=== PATIENT | male | born 1950 | race Caucasian/White ===

== ENCOUNTER 2016-08-07 07:50 | Emergency (ER) | payer MEDICARE, OTHER ==
[~2016-08-07] VITALS: Ht 157.5 cm; Wt 55.0 kg
[~2016-08-07 07:50] MED LIST: ALBU0.08 NEB; AMLO5TAB2 PO; ASPI1TAB69 PO; CALC500T35 PO; DEXA4TAB PO; GABA600T PO; HYDR8TAB PO; METH10TA PO; OMEP20TA PO; POTA1TAB4 PO; ROBA750T PO; SENN1TAB PO; SPIRCAP INH; SYMB160A INH; ZOME4INJ IV; [UNRECOGNIZED DRUG - REMARK] PO; revlimid PO
[2016-08-07 07:52] VITALS: BP 166/73; PULSE 79; RESP 20; TEMP 98.2; O2SAT 97
--- NOTE | 2016-08-07 08:04 | PD ---
HPI Chief Complaint: Back/ Neck Pain or Injury Time Seen by Provider: 07:54 Travel History International Travel<30 days: No Contact w/Intl Traveler<30days: No Traveled to known affect area: No History of Present Illness HPI This is a 66-year-old male who has a history of multiple myeloma who presents to the emergency department with pain in his neck, constant, worse with moving his neck, improved with rest, sharp, starting in his shoulder blades and shooting upward towards the right side. He denies any numbness or weakness. He thinks he may have injured his neck when he was sneezing very forcefully earlier in the week. He says his neck pain is been going on for 2 days and has been progressing. He does have multiple bony lesions related to his multiple myeloma. PFSH Past Medical History Hx Anticoagulant Therapy: Yes (81 MG ASA) Anemia: Yes Arthritis: Yes Asthma: Yes Anxiety: Yes Cancer: Yes (multiple myeloma) Cardiovascular Problems: Yes (HTN) High Cholesterol: Yes (BORDERLINE) Chemotherapy: Yes (ORAL CHEMO) Chest Pain: Yes COPD: Yes Cerebrovascular Accident: No Diabetes: No Diminished Hearing: No Endocrine: No GERD: Yes Genitourinary: No Herniated Disk: Yes ("COLLAPSED" DISCS) Hypertension: Yes Immune Disorder: No Implanted Vascular Access Dvce: Yes Musculoskeletal: Yes (KYPHOPLASTY: SPINE DUE TO COLLAPSED DISCS AND FRACTURES) Neurologic: No Reproductive: No Respiratory: Yes (COPD) Immunizations Current: Yes Pneumonia: Yes Radiation Therapy: Yes Shingles: Yes ?: Not Past Surgical History Body Medical Devices: RIGHT SUBCLAVIAN INFUSAPORT: JUNE 2014 Other Surgery: Yes (infusaport r chest) Family History Family Hypercholesterolemia: Yes (SISTER, BROTHER, MOTHER) Social History Alcohol Use: No Tobacco Use: No (QUIT 2003: October smoked cigs 3 ppd) Substance Use: No Allergies-Medications (Allergen,Severity, Reaction): Coded Allergies: Azithromycin (Verified Allergy, Severe, Rash, 08/07/16) Phenergan (Verified Allergy, Severe, ANXIETY, 08/07/16) Augmentin (Verified Adverse Reaction, Severe, ABD PAIN, 08/07/16) IS CURRENTLY TAKING Doxycycline (Verified Adverse Reaction, Mild, ABDOMINAL PAIN, 08/07/16) Levaquin (Verified Adverse Reaction, Mild, BODY ACHES, 08/07/16) patient denies allergy to this medicine and has taken it as recently as April 2015 without adverse reaction Reported Meds & Prescriptions Reported Meds & Active Scripts Active Reported Adderall (Amphetamine-Dextroamphetamine) 5 Mg Tab 4 Mg PO DAILY Avoid late evening doses. Space doses at least 4 to 6 hours if more than once/day dosing. Zofran (Ondansetron HCl) 4 Mg Tab 4 Mg PO Q6HR PRN K-Tab (Potassium Chloride) 20 Meq Tab 20 Meq PO DAILY Zometa Inj (Zoledronic Acid) 4 Mg/100 Ml Inj 4 Mg IV MONTHLY Albuterol Neb (Albuterol Sulfate) 2.5 Mg/3 Ml Neb 2.5 Mg NEB QID NEB Symbicort Inh (Budesonide/Formoterol Fumarate) 160-4.5 Mcg/Act Aero 2 Puff INH Q12HR Calcium (Oyster Shell) 500 Mg Tab 1,000 Mg PO DAILY Aspirin 81 Mg Tabdr 81 Mg PO DAILY Robaxin (Methocarbamol) 750 Mg Tab 750 Mg PO TID [ureña signature] 10 Mg PO DAILY Amlodipine (Amlodipine Besylate) 5 Mg Tab 5 Mg PO DAILY Methadone (Methadone HCl) 10 Mg Tab 10 Mg PO TID Gabapentin 600 Mg Tab 600 Mg PO TID Hydromorphone (Hydromorphone HCl) 8 Mg Tab 8 Mg PO Q6H PRN Dexamethasone 4 Mg Tab 20 Mg PO EVERY MON Omeprazole 20 Mg Tab 20 Mg PO BID Spiriva Handihaler (Tiotropium Inh) 18 Mcg Cap 18 Mcg INH DAILY 1 capsule = 18 mcg Senna Plus 8.6-50 mg (Sennosides-Docusate Sodium) 1 Tab Tab 1 Tab PO BID [revlimid] 25 Mg PO DAILY Review of Systems Except as stated in HPI: all other systems reviewed are Neg Physical Exam Narrative GENERAL:Well appearing, no acute distress SKIN: Warm and dry. HEAD: Atraumatic. Normocephalic. EYES: Pupils equal and round. No injection or drainage. ENT: Moist mucous membranes NECK: Trachea midline. No cervical spine tenderness. Cervical collar in place. CARDIOVASCULAR: Regular rate and rhythm. No murmur appreciated. RESPIRATORY: Clear to auscultation. Breath sounds equal bilaterally. GASTROINTESTINAL: Abdomen soft, non-tender, nondistended. MUSCULOSKELETAL: No obvious deformities. NEUROLOGICAL: Awake and alert. No obvious cranial nerve deficits. Moving all extremities. PSYCHIATRIC: Appropriate mood and affect; insight and judgment normal. Data Data Last Documented VS Vital Signs Date Time Temp Pulse Resp B/P Pulse Ox O2 Delivery O2 Flow Rate FiO2 08/07/16 07:52 98.2 79 20 166/73 97 Orders Hydromorphone Pf Inj (Dilaudid Pf Inj) (08/07/16 08:15) Ct Cerv Spine W/O Contrast (08/07/16 ) MDM Medical Decision Making Medical Screen Exam Complete: Yes Emergency Medical Condition: Yes Interpretation(s) CT cervical spine: No acute fracture Differential Diagnosis Cervical spine fracture, cervical sprain, herniated disc Narrative Course This is a 66-year-old male who has a history of multiple myeloma who presents to the emergency department having pain in his neck that followed an episode of violent sneezing. He was concerned that he may have a fracture. CT of the cervical spine was obtained which was reassuring. He was given a dose of IM analgesia. Patient will be discharged home. Diagnosis Primary Impression: Cervical sprain Qualified Code: S13.9XXA - Cervical sprain, initial encounter Patient Instructions: General Instructions Additional Instructions: If you develop headache, difficulty walking, difficulty talking, weakness, numbness, lightheadedness or severe pain return to the emergency department. If you are not improved in 2 days follow up with your primary care physician without fail. Med/Other Pt SpecificInfo: No Change to Meds Disposition: 01 DISCHARGE HOME Condition: Stable (ERASED) Nilsa Andrew MD Aug 07, 2016 08:04
[2016-08-07] MEDS ORDERED: AMPH1TAB29 PO (08:10)
[2016-08-07] MEDS ORDERED: ZOFR4TAB PO (08:10)
[2016-08-07] MEDS ORDERED: HYDROmorphone HCL PF 2 MG/ML VIAL IM ONE (08:15)
--- NOTE | 2016-08-07 08:46 | RADRPT ---
EXAM DATE/TIME: 08/07/2016 08:17 [facility] COMPARISON: CT CERVICAL SPINE W/O CONTRAST, July 27, 2016, 12:46. INDICATIONS : Neck pain from sneezing two days ago. History of multiple myeloma. RADIATION DOSE: 19.71 CTDIvol (mGy) MEDICAL HISTORY : Hypertension. Chronic obstructive pulmonary disease. Multiple myeloma SURGICAL HISTORY : Kyphoplasty. ENCOUNTER: Initial ACUITY: 1 day PAIN SCALE: 8/10 LOCATION: neck TECHNIQUE: Volumetric scanning of the cervical spine was performed. Multiplanar reconstructions in the sagittal, coronal and oblique axial planes were performed. Using automated exposure control and adjustment o f the mA and/or kV according to patient size, radiation dose was kept as low as reasonably achievable to obtain optimal diagnostic quality images. FINDINGS: There is normal alignment. No prevertebral soft tissue swelling. There is multilevel facet hypertroph y and osteophytosis. Moderate disc space narrowing at C5-6 and C6-7. There are no compression deformi ties. Carotid artery calcifications are noted bilaterally. Uncovertebral hypertrophy is seen C5-6 and C6-7. Severe emphysematous changes are visualized on lung windows. Coronal images best demonstrate s cattered tiny lucent lesions within the C3, C5 and C6 vertebral bodies. CONCLUSION: 1. Degenerative changes with no fracture or listhesis. 2. Stable exam. Marvin Lezama MD on August 07, 2016 at 8:41 Board Certified Radiologist. This report was verified electronically.
[2016-08-07 09:25] VITALS: BP 159/70; PULSE 80; RESP 20; O2SAT 96
== END 2016-08-07 09:35 | disposition home or self-care (01) ==
LOC: NEPC 07:50
DX: S13.4XXA Sprain of ligaments of cervical spine, initial encounter (principal); Y93.9 Activity, unspecified; I10 Essential (primary) hypertension; C90.00 Multiple myeloma not having achieved remission; E78.00 Pure hypercholesterolemia, unspecified; J44.9 Chronic obstructive pulmonary disease, unspecified; X50.9XXA Other and unspecified overexertion or strenuous movements or postures, initial encounter
CPT/HCPCS: 72125; 96372; 99284; J1170; L0150

== ENCOUNTER 2016-09-10 14:25 | Emergency (ER) | payer MEDICARE, OTHER ==
[~2016-09-10] VITALS: Ht 157.5 cm; Wt 55.0 kg
[~2016-09-10 14:25] MED LIST changes: +AMPH1TAB29 PO; +ZOFR4TAB PO
[2016-09-10 14:31] VITALS: BP 139/82; PULSE 114; RESP 18; TEMP 98.8; O2SAT 99
[2016-09-10] MEDS ORDERED: IPRA0.06 EACH NARE (15:15)
[2016-09-10] MEDS ORDERED: BENZ100 PO (15:15)
--- NOTE | 2016-09-10 15:17 | PD ---
HPI Chief Complaint: Cold / Flu Symptoms Time Seen by Provider: 15:09 Travel History International Travel<30 days: No Contact w/Intl Traveler<30days: No Traveled to known affect area: No History of Present Illness HPI Patient is a 66-year-old male who presents for evaluation of a cough that started at approximately 1 AM this morning. He also states his nose has been runny. He denies any fevers, chills, nausea, vomiting, chest pain, shortness of breath. Patient reports a history of COPD and has not been using his inhalers, stating that he forgot. He denies any other complaints at this time. PFSH Past Medical History Hx Anticoagulant Therapy: No Anemia: Yes Arthritis: Yes Asthma: Yes Anxiety: Yes Cancer: Yes (multiple myeloma) Cardiovascular Problems: Yes (HTN) High Cholesterol: Yes (BORDERLINE) Chemotherapy: Yes (ORAL CHEMO) Chest Pain: Yes COPD: Yes Cerebrovascular Accident: No Diabetes: No Diminished Hearing: No Endocrine: No GERD: Yes Genitourinary: No Herniated Disk: Yes ("COLLAPSED" DISCS) Hypertension: Yes Immune Disorder: No Implanted Vascular Access Dvce: Yes Musculoskeletal: Yes (KYPHOPLASTY: SPINE DUE TO COLLAPSED DISCS AND FRACTURES) Neurologic: No Reproductive: No Respiratory: Yes (COPD, EMPHYSEMA) Immunizations Current: Yes Pneumonia: Yes Radiation Therapy: Yes Shingles: Yes Tetanus Vaccination: < 5 Years Influenza Vaccination: Yes Past Surgical History Body Medical Devices: RIGHT SUBCLAVIAN INFUSAPORT: JUNE 2014 Other Surgery: Yes (infusaport r chest) Family History Family Hypercholesterolemia: Yes (SISTER, BROTHER, MOTHER) Social History Alcohol Use: No Tobacco Use: No (QUIT 2003: October smoked cigs 3 ppd) Substance Use: No Allergies-Medications (Allergen,Severity, Reaction): Coded Allergies: Azithromycin (Verified Allergy, Severe, Rash, 09/10/16) Phenergan (Verified Allergy, Severe, ANXIETY, 09/10/16) Augmentin (Verified Adverse Reaction, Severe, ABD PAIN, 09/10/16) IS CURRENTLY TAKING Doxycycline (Verified Adverse Reaction, Mild, ABDOMINAL PAIN, 09/10/16) Levaquin (Verified Adverse Reaction, Mild, BODY ACHES, 09/10/16) patient denies allergy to this medicine and has taken it as recently as April 2015 without adverse reaction Reported Meds & Prescriptions Reported Meds & Active Scripts Active Tessalon Perles (Benzonatate) 100 Mg Cap 200 Mg PO TID PRN Ipratropium Nasal 0.06% [place] 1 [place] EACH NARE QID Reported Adderall (Amphetamine-Dextroamphetamine) 5 Mg Tab 4 Mg PO DAILY Avoid late evening doses. Space doses at least 4 to 6 hours if more than once/day dosing. Zofran (Ondansetron HCl) 4 Mg Tab 4 Mg PO Q6HR PRN K-Tab (Potassium Chloride) 20 Meq Tab 20 Meq PO DAILY Zometa Inj (Zoledronic Acid) 4 Mg/100 Ml Inj 4 Mg IV MONTHLY Albuterol Neb (Albuterol Sulfate) 2.5 Mg/3 Ml Neb 2.5 Mg NEB QID NEB Symbicort Inh (Budesonide/Formoterol Fumarate) 160-4.5 Mcg/Act Aero 2 Puff INH Q12HR Calcium (Oyster Shell) 500 Mg Tab 1,000 Mg PO DAILY Aspirin 81 Mg Tabdr 81 Mg PO DAILY Robaxin (Methocarbamol) 750 Mg Tab 750 Mg PO TID [ureña signature] 10 Mg PO DAILY Amlodipine (Amlodipine Besylate) 5 Mg Tab 5 Mg PO DAILY Methadone (Methadone HCl) 10 Mg Tab 10 Mg PO TID Gabapentin 600 Mg Tab 600 Mg PO TID Hydromorphone (Hydromorphone HCl) 8 Mg Tab 8 Mg PO Q6H PRN Dexamethasone 4 Mg Tab 20 Mg PO EVERY MON Omeprazole 20 Mg Tab 20 Mg PO BID Spiriva Handihaler (Tiotropium Inh) 18 Mcg Cap 18 Mcg INH DAILY 1 capsule = 18 mcg Senna Plus 8.6-50 mg (Sennosides-Docusate Sodium) 1 Tab Tab 1 Tab PO BID [revlimid] 25 Mg PO DAILY Review of Systems Except as stated in HPI: all other systems reviewed are Neg General / Constitutional: No: Fever, Chills HENT: Positive: Rhinitis, Congestion, No: Headaches, Neck Pain Cardiovascular: No: Chest Pain or Discomfort Respiratory: Positive: Cough, No: Shortness of Breath, Wheezing Gastrointestinal: No: Nausea, Abdominal Pain Musculoskeletal: No: Myalgias Physical Exam Narrative GENERAL: Thin, well-developed, alert elderly male. Resting comfortably in no acute distress. SKIN: Warm and dry. HEAD: Atraumatic. Normocephalic. EYES: Pupils equal and round. No scleral icterus. No injection or drainage. ENT: No nasal bleeding or discharge. Mucous membranes pink and moist. Cobblestone appearance to posterior pharynx. NECK: Trachea midline. No JVD. CARDIOVASCULAR: Regular rate and rhythm. No murmur appreciated. RESPIRATORY: No accessory muscle use. Clear to auscultation. Breath sounds equal bilaterally. GASTROINTESTINAL: Abdomen soft, non-tender, nondistended. Hepatic and splenic margins not palpable. MUSCULOSKELETAL: No obvious deformities. No clubbing. No cyanosis. No edema. NEUROLOGICAL: Awake and alert. No obvious cranial nerve deficits. Motor grossly within normal limits. Normal speech. PSYCHIATRIC: Appropriate mood and affect; insight and judgment normal. Data Data Last Documented VS Vital Signs Date Time Temp Pulse Resp B/P Pulse Ox O2 Delivery O2 Flow Rate FiO2 09/10/16 14:43 18 99 Room Air 09/10/16 14:31 98.8 114 139/82 MDM Medical Decision Making Medical Screen Exam Complete: Yes Emergency Medical Condition: Yes Interpretation(s) Vital Signs Date Time Temp Pulse Resp B/P Pulse Ox O2 Delivery O2 Flow Rate FiO2 09/10/16 14:43 18 99 Room Air 09/10/16 14:31 98.8 114 18 139/82 99 Differential Diagnosis Viral URI versus bronchitis versus pneumonia versus COPD exacerbation versus other Narrative Course Patient is a 66-year-old male who presented to emergency department for evaluation of a cough that started approximately 1 AM this morning. Physical examination is unremarkable other than Appears to Posterior Pharynx. Patient Was Advised That Cough Is Likely Secondary to Postnasal Drip. He Was Encouraged to Trial Symptom Management. His primary care provider is Dr. Griffiths. Patient was encouraged to follow-up with his primary doctor or return to emergency department for any new or worsening symptoms. Patient was advised that his symptoms will likely go on for 5-7 days. He verbalized understanding of these instructions. Again he was advised to come back to emergency department if his symptoms change or worsen. Heart rate was initially charted at 115, was reassessed at 80 was unhappy that he did not receive a prescription for antibiotic initially taking that he has multiple myeloma and is on chemotherapy and states that he is always given an antibiotic. Patient's labs were reviewed from August as well as medical records from the last ER visit for upper respiratory infection. During that time patient had been sick for several days. Patient was given a prescription for Augmentin, was strongly encouraged to follow- up with oncologist and primary doctor. Patient was encouraged to be compliant with COPD medications. Diagnosis Primary Impression: Viral URI with cough Referrals: Eusebio Griffiths DO 3 days Patient Instructions: General Instructions, Upper Respiratory Infection (ED) Additional Instructions: Follow-up with her primary doctor Continue symptom management Return to emergency department for any new or worsening symptoms Trial [id number] Coricidin HBP for nasal congestion, use as directed Med/Other Pt SpecificInfo: Prescription(s) given Scripts Amoxicillin-Clavulanate (Augmentin)875-125 mg [id number] Mg PO BID 10 Days Ref 0 not for use in CrCl <30 ml/min. Prov:Shanell Duke 09/10/16 Benzonatate (Tessalon Perles)100 Mg [id number] Mg PO TID PRN (COUGH) #15 CAP Ref 0 Prov:Shanell Duke 09/10/16 Ipratropium Nasal 0.06% Spray1 [place] EACH NARE QID #1 BOTTLE Ref 0 Prov:Shanell Duke 09/10/16 Disposition: 01 DISCHARGE HOME Condition: Stable Shanell Duke Sep 10, 2016 15:16
[2016-09-10] MEDS ORDERED: AUGM875T PO (15:30)
== END 2016-09-10 15:34 | disposition home or self-care (01) ==
LOC: PHEFT 14:25
DX: J06.9 Acute upper respiratory infection, unspecified (principal); D64.9 Anemia, unspecified; J45.909 Unspecified asthma, uncomplicated; I10 Essential (primary) hypertension; J44.9 Chronic obstructive pulmonary disease, unspecified; Z87.891 Personal history of nicotine dependence
CPT/HCPCS: 99283

== ENCOUNTER 2016-09-17 10:16 | Emergency (ER) | payer MEDICARE, OTHER ==
[~2016-09-17] VITALS: Ht 157.5 cm; Wt 52.0 kg
[~2016-09-17 10:16] MED LIST changes: +AUGM875T PO; +BENZ100 PO; +IPRA0.06 EACH NARE
[2016-09-17 10:20] VITALS: BP 173/93; PULSE 106; RESP 24; TEMP 98.1; O2SAT 92
[2016-09-17 10:30] VITALS: PULSE 103; RESP 20; TEMP 98.6; O2SAT 90
[2016-09-17 10:41] VITALS: O2SAT 98
--- NOTE | 2016-09-17 10:41 | PD ---
HPI Chief Complaint: Respiratory Distress Time Seen by Provider: 10:35 Travel History International Travel<30 days: No Contact w/Intl Traveler<30days: No Traveled to known affect area: No History of Present Illness HPI The patient is a 66-year-old male who presents emergency department for shortness of breath and chest congestion. The patient has a history of multiple myeloma and COPD, is followed by his medical sales associate, Dr. Crow, his oncologist, Dr. Hernandez, and his primary physician Dr. Griffiths. The patient states her last several weeks he has had viral symptoms with nasal congestion and a dry nonproductive cough. However, over the last several days his symptoms have progressed, now notes a productive cough producing a thick yellow sputum, mild shortness of breath, and wheezing. The patient has been using his breathing inhaler, Symbicort, and albuterol nebulizers at home with minimal alleviation of his symptoms. The patient is currently being treated for multiple myeloma, gets chemotherapy and Decadron 20 mg every Sunday. The patient denies any recent history of bronchitis or pneumonia. The patient denies any history of CAD, CHF, or previous pulmonary embolism/DVT. Patient's symptoms are moderate, possibly exacerbated by recent upper respiratory infection, and minimally alleviated with nebulizers and inhalers at home. PFSH Past Medical History Hx Anticoagulant Therapy: No Anemia: Yes Arthritis: Yes Asthma: Yes Anxiety: Yes Cancer: Yes (multiple myeloma) Cardiovascular Problems: Yes (HTN) High Cholesterol: Yes (BORDERLINE) Chemotherapy: Yes (ORAL CHEMO) Chest Pain: Yes COPD: Yes Cerebrovascular Accident: No Diabetes: No Diminished Hearing: No Endocrine: No GERD: Yes Genitourinary: No Herniated Disk: Yes ("COLLAPSED" DISCS) Hypertension: Yes Immune Disorder: No Implanted Vascular Access Dvce: Yes Musculoskeletal: Yes (KYPHOPLASTY: SPINE DUE TO COLLAPSED DISCS AND FRACTURES) Neurologic: No Reproductive: No Respiratory: Yes (COPD, EMPHYSEMA) Immunizations Current: Yes Pneumonia: Yes Radiation Therapy: Yes Shingles: Yes Past Surgical History Body Medical Devices: RIGHT SUBCLAVIAN INFUSAPORT: JUNE 2014 Other Surgery: Yes (infusaport r chest) Family History Family Hypercholesterolemia: Yes (SISTER, BROTHER, MOTHER) Social History Alcohol Use: No Tobacco Use: No (QUIT 2003: October smoked cigs 3 ppd) Substance Use: No Allergies-Medications (Allergen,Severity, Reaction): Coded Allergies: Azithromycin (Verified Allergy, Severe, Rash, 09/17/16) Phenergan (Verified Allergy, Severe, ANXIETY, 09/17/16) Augmentin (Verified Adverse Reaction, Severe, ABD PAIN, 09/17/16) IS CURRENTLY TAKING Doxycycline (Verified Adverse Reaction, Mild, ABDOMINAL PAIN, 09/17/16) Levaquin (Verified Adverse Reaction, Mild, BODY ACHES, 09/17/16) patient denies allergy to this medicine and has taken it as recently as April 2015 without adverse reaction. STASTES HE CAN TAKE IT Reported Meds & Prescriptions Reported Meds & Active Scripts Active Reported Zofran (Ondansetron HCl) 4 Mg Tab 4 Mg PO Q6HR PRN K-Tab (Potassium Chloride) 20 Meq Tab 20 Meq PO DAILY Zometa Inj (Zoledronic Acid) 4 Mg/100 Ml Inj 4 Mg IV MONTHLY Albuterol Neb (Albuterol Sulfate) 2.5 Mg/3 Ml Neb 2.5 Mg NEB QID NEB Symbicort Inh (Budesonide/Formoterol Fumarate) 160-4.5 Mcg/Act Aero 2 Puff INH Q12HR Calcium (Oyster Shell) 500 Mg Tab 1,000 Mg PO DAILY Robaxin (Methocarbamol) 750 Mg Tab 750 Mg PO TID [ureña signature] 10 Mg PO DAILY Amlodipine (Amlodipine Besylate) 5 Mg Tab 5 Mg PO DAILY Methadone (Methadone HCl) 10 Mg Tab 10 Mg PO TID Gabapentin 600 Mg Tab 600 Mg PO TID Hydromorphone (Hydromorphone HCl) 8 Mg Tab 8 Mg PO Q6H PRN Dexamethasone 4 Mg Tab 20 Mg PO EVERY MON Omeprazole 20 Mg Tab 20 Mg PO BID Spiriva Handihaler (Tiotropium Inh) 18 Mcg Cap 18 Mcg INH DAILY 1 capsule = 18 mcg Senna Plus 8.6-50 mg (Sennosides-Docusate Sodium) 1 Tab Tab 1 Tab PO BID [revlimid] 25 Mg PO DAILY Review of Systems Except as stated in HPI: all other systems reviewed are Neg General / Constitutional: No: Fever HENT: Positive: Congestion, No: Lightheadedness Cardiovascular: No: Chest Pain or Discomfort Respiratory: Positive: Cough, Shortness of Breath, Wheezing Musculoskeletal: No: Weakness, Edema Neurologic: No: Dizziness Physical Exam Narrative GENERAL: Awake, alert, pleasant 66-year-old male who appears his stated age and is in mild acute respiratory distress. SKIN: Warm and dry. HEAD: Atraumatic. Normocephalic. EYES: Pupils equal and round. No scleral icterus. No injection or drainage. ENT: No nasal bleeding or discharge. Mucous membranes pink and moist. NECK: Trachea midline. No JVD. CARDIOVASCULAR: Regular, tachycardic with a heart rate of 110. Port in place right chest wall. RESPIRATORY: Mild tachypnea with a respiratory rate of 22. Mild supraclavicular retractions. Diminished breath sounds throughout with late expiratory wheeze and occasional rhonchi. GASTROINTESTINAL: Abdomen soft, non-tender, nondistended. MUSCULOSKELETAL: No obvious deformities. No clubbing. No cyanosis. No edema. Calves are soft bilaterally. NEUROLOGICAL: Awake and alert. No obvious cranial nerve deficits. Motor grossly within normal limits. Normal speech. PSYCHIATRIC: Appropriate mood and affect; insight and judgment normal. Data Data Last Documented VS Vital Signs Date Time Temp Pulse Resp B/P Pulse Ox O2 Delivery O2 Flow Rate FiO2 09/17/16 12:05 116 22 129/72 94 Nasal Cannula 2 09/17/16 10:30 98.6 Orders Complete Blood Count With Diff (09/17/16 10:35) Comprehensive Metabolic Panel (09/17/16 10:35) B-Type Natriuretic Peptide (09/17/16 10:35) Magnesium (Mg) (09/17/16 10:35) Ckmb (Isoenzyme) Profile (09/17/16 10:35) Troponin I (09/17/16 10:35) Iv Access Insert/Monitor (09/17/16 10:35) Electrocardiogram (09/17/16 10:35) Ecg Monitoring (09/17/16 10:35) Oximetry (09/17/16 10:35) Oxygen Administration (09/17/16 10:35) Chest, Single Ap (09/17/16 10:35) Sodium Chloride 0.9% Flush (Ns Flush) (09/17/16 10:45) Methylprednisolone So Succ Inj (Solumedr (09/17/16 10:45) Albuterol-Ipratropium Neb (Duoneb Neb) (09/17/16 10:45) Lidocaine Pf 4% Neb (Lidocaine Pf 4% Neb (09/17/16 10:45) Potassium Chloride Eff (K-Lyte Cl Eff) (09/17/16 11:30) Labs Laboratory Tests Test 09/17/16 10:43 White Blood Count 5.4 TH/MM3 Red Blood Count 4.74 MIL/MM3 Hemoglobin 12.8 GM/DL Hematocrit 38.0 % Mean Corpuscular Volume 80.2 FL Mean Corpuscular Hemoglobin 27.0 PG Mean Corpuscular Hemoglobin 33.7 % Concent Red Cell Distribution Width 17.4 % Platelet Count 222 TH/MM3 Mean Platelet Volume 7.7 FL Neutrophils (%) (Auto) 74.8 % Lymphocytes (%) (Auto) 5.0 % Monocytes (%) (Auto) 19.4 % Eosinophils (%) (Auto) 0.0 % Basophils (%) (Auto) 0.8 % Neutrophils # (Auto) 4.1 TH/MM3 Lymphocytes # (Auto) 0.3 TH/MM3 Monocytes # (Auto) 1.1 TH/MM3 Eosinophils # (Auto) 0.0 TH/MM3 Basophils # (Auto) 0.0 TH/MM3 CBC Comment DIFF FINAL Differential Comment Sodium Level 137 MEQ/L Potassium Level 2.8 MEQ/L Chloride Level 99 MEQ/L Carbon Dioxide Level 29.0 MEQ/L Anion Gap 9 MEQ/L Blood Urea Nitrogen 8 MG/DL Creatinine 0.61 MG/DL Estimat Glomerular Filtration 132 ML/MIN Rate Random Glucose 125 MG/DL Calcium Level 8.4 MG/DL Magnesium Level 1.8 MG/DL Total Bilirubin 0.5 MG/DL Aspartate Amino Transf 10 U/L (AST/SGOT) Alanine Aminotransferase 14 U/L (ALT/SGPT) Alkaline Phosphatase 89 U/L Total Creatine Kinase 27 U/L Troponin I LESS THAN 0.02 NG/ML B-Type Natriuretic Peptide 22 PG/ML Total Protein 7.0 GM/DL Albumin 2.9 GM/DL [facility] Medical Decision Making Medical Screen Exam Complete: Yes Emergency Medical Condition: Yes Medical Record Reviewed: Yes Interpretation(s) EKG reveals normal sinus rhythm with a rate in 98. Short VT interval of 104 ms. Occasional premature supraventricular complex. No ST elevations or depressions noted. Laboratory Tests Test 09/17/16 10:43 White Blood Count 5.4 TH/MM3 Red Blood Count 4.74 MIL/MM3 Hemoglobin 12.8 GM/DL Hematocrit 38.0 % Mean Corpuscular Volume 80.2 FL Mean Corpuscular Hemoglobin 27.0 PG Mean Corpuscular Hemoglobin 33.7 % Concent Red Cell Distribution Width 17.4 % Platelet Count 222 TH/MM3 Mean Platelet Volume 7.7 FL Neutrophils (%) (Auto) 74.8 % Lymphocytes (%) (Auto) 5.0 % Monocytes (%) (Auto) 19.4 % Eosinophils (%) (Auto) 0.0 % Basophils (%) (Auto) 0.8 % Neutrophils # (Auto) 4.1 TH/MM3 Lymphocytes # (Auto) 0.3 TH/MM3 Monocytes # (Auto) 1.1 TH/MM3 Eosinophils # (Auto) 0.0 TH/MM3 Basophils # (Auto) 0.0 TH/MM3 CBC Comment DIFF FINAL Differential Comment Sodium Level 137 MEQ/L Potassium Level 2.8 MEQ/L Chloride Level 99 MEQ/L Carbon Dioxide Level 29.0 MEQ/L Anion Gap 9 MEQ/L Blood Urea Nitrogen 8 MG/DL Creatinine 0.61 MG/DL Estimat Glomerular Filtration 132 ML/MIN Rate Random Glucose 125 MG/DL Calcium Level 8.4 MG/DL Magnesium Level 1.8 MG/DL Total Bilirubin 0.5 MG/DL Aspartate Amino Transf 10 U/L (AST/SGOT) Alanine Aminotransferase 14 U/L (ALT/SGPT) Alkaline Phosphatase 89 U/L Total Creatine Kinase 27 U/L Troponin I LESS THAN 0.02 NG/ML B-Type Natriuretic Peptide 22 PG/ML Total Protein 7.0 GM/DL Albumin 2.9 GM/DL Last Impressions Chest X-Ray 09/17/16 1035 Signed Impressions: Service Date/Time: Saturday, September 17, 2016 10:48 - CONCLUSION: 1. COPD with chronic interstitial changes in the lung bases. 2. No acute pulmonary infiltrates. Talon Stern MD Differential Diagnosis Differential diagnosis includes bronchitis, pneumonia, COPD exacerbation, pulmonary embolism, congestive heart failure, pericardial effusion, acute coronary syndrome. Narrative Course The patient's port was accessed, labs are drawn and sent, and the patient was placed on cardiac telemetry monitoring and continuous pulse oximetry monitoring. EKG was ordered and interpreted. Chest x-ray was obtained. The patient was administered Solu-Medrol 125 mg intravenously and duo nebs with respiratory lidocaine. The patient's troponin was unremarkable, BNP is negative , chest x-ray reveals chronic changes consistent with COPD, but no acute infiltrate. The patient's potassium is low at 2.8, therefore, was replaced orally. The patient was reevaluated several times, his symptoms had significantly improved, his heart rate came down into the 70s. I do discussion with the patient regarding 23 hour observation/admission versus outpatient follow-up. Patient states he feels well enough to go home, I advised them to follow-up with his medical sales associate, Dr. Crow, tomorrow. He is advised to return if symptoms worsen or progress. Diagnosis Primary Impression: Acute bronchitis Qualified Code: J20.9 - Acute bronchitis, unspecified organism Additional Impression: COPD exacerbation Patient Instructions: General Instructions Additional Instructions: Please provide the patient a copy of his labs and chest x-ray report at discharge. Nebulizers every 4 hours while awake. Start steroids in the morning. Bactrim twice a day as directed. Follow-up with your medical sales associate tomorrow. Return if symptoms worsen or progress. Med/Other Pt SpecificInfo: Prescription(s) given Scripts Ipratropium-Albuterol Neb (Duoneb)0.5-2.5 Mg/3 Ml Neb1 Nebule INH Q4HR NEB # 120 NEBULE Ref 0 Prov:Gerald Nino MD 09/17/16 Sulfamethoxazole-Trimethoprim (Bactrim DS)800-160 Mg Tab1 Tab PO BID #14 TAB Ref 0 Prov:Gerald Nino MD 09/17/16 Prednisone (Deltasone)20 Mg Tab40 Mg PO DAILY 4 Days Ref 0 Prov:Gerald Nino MD 09/17/16 Disposition: 01 DISCHARGE HOME Condition: Stable Gerald Nino MD Sep 17, 2016 10:41
[2016-09-17] MEDS ORDERED: methylPREDNISolone SOD SUCC 125 MG/2 ML VIAL IVP ONE (10:45)
[2016-09-17] MEDS ORDERED: SODIUM CHLORIDE 0.9% FLUSH 5 ML FLUSH IVF PRN (10:45)
[2016-09-17] MEDS ORDERED: RESP: LIDOCAINE HCL 4% PF 5 ML NEB NEB ONE (10:45)
[2016-09-17] MEDS: RESP: ALBUTEROL 2.5 MG/IPRATROPIUM 0.5 MG NEB (SCH) INH ×2 (10:59→11:00)
[2016-09-17 11:00] LABS: AUTOMATED NEUTROPHIL # 4.1 TH/MM3 (1.8-7.7); BASOPHIL % 0.8 % (0.0-2.0); HEMO FLAGS DIFF FINAL; LYMPHOCYTE # 0.3 TH/MM3 (1.0-4.8); MEAN CELL VOLUME 80.2 FL (80.0-100.0); MEAN CORPUSCULAR HGB CONC 33.7 % (32.0-36.0); MONO % 19.4 % (0.0-8.0); NEUT % 74.8 % (16.0-70.0); PLATELET COUNT 222 TH/MM3 (150-450); RED BLOOD COUNT 4.74 MIL/MM3 (4.50-5.90); RED CELL DISTRIBUTION WIDTH 17.4 % (11.6-17.2); WHITE BLOOD COUNT 5.4 TH/MM3 (4.0-11.0)
--- NOTE | 2016-09-17 11:00 | RADRPT ---
EXAM DATE/TIME: 09/17/2016 10:48 [facility] COMPARISON: CHEST SINGLE AP, August 04, 2015, 16:16. INDICATIONS : Short of Breath. MEDICAL HISTORY : Chronic obstructive pulmonary disease. Emphysema. Multiple Myeloma. SURGICAL HISTORY : Port Placement. ENCOUNTER: Initial ACUITY: 2 days PAIN SCORE: 0/10 LOCATION: Bilateral chest FINDINGS: A single view of the chest demonstrates hyperaeration bilaterally with some chronic interstitial garcia ges in both lung bases. No definite acute pulmonary infiltrates are seen. The heart size is within no rmal limits. There are no pleural effusions. There are degenerative changes of the bony structures. R ight-sided [id number] in place.. No significant changes. CONCLUSION: 1. COPD with chronic interstitial changes in the lung bases. 2. No acute pulmonary infiltrates. Talon Stern MD on September 17, 2016 at 10:58 Board Certified Radiologist. This report was verified electronically.
[2016-09-17 11:03] VITALS: O2SAT 95
[2016-09-17 11:19] LABS: ANION GAP 9 MEQ/L (5-15); AST (GOT) 10 U/L (15-37); BLOOD UREA NITROGEN 8 MG/DL (7-18); CHLORIDE 99 MEQ/L (98-107); GLOMERULAR FILTRATION RATE 132 ML/MIN (>89); MAGNESIUM 1.8 MG/DL (1.5-2.5); SODIUM (NA) 137 MEQ/L (136-145)
[2016-09-17 11:23] LABS: POTASSIUM 2.8 MEQ/L (3.5-5.1)
[2016-09-17] MEDS ORDERED: POTASSIUM CHLORIDE 25 MEQ EFFERVESCENT TAB PO ONE (11:30)
[2016-09-17 12:00] LABS: ALKALINE PHOSPHATASE 89 U/L (45-117); ALT (GPT) 14 U/L (12-78); CREATINE KINASE 27 U/L (39-308); TOTAL BILIRUBIN ADULT 0.5 MG/DL (0.2-1.0)
[2016-09-17 12:05] VITALS: BP 129/72; PULSE 116; RESP 22; O2SAT 94
[2016-09-17] MEDS ORDERED: BACT800T5 PO (12:25)
[2016-09-17] MEDS ORDERED: PRED-503 PO (12:25)
[2016-09-17] MEDS ORDERED: IPRASOL INH (12:25)
[2016-09-17] MEDS ORDERED: ONDANSETRON ODT 4 MG TAB PO ONE (13:15)
--- NOTE | 2016-09-17 14:43 | EKG ---
Date Performed: 09/17/2016 Time Performed: 10:40:26 PTAGE: 66 years EKG: Sinus rhythm WITH SHORT NJ INTERVAL WITH OCCASIONAL VENTRICULAR PREMATURE COMPLEXES WITH OCCASIONAL SUPRAVENTRICU LAR PREMATURE COMPLEXES BORDERLINE LEFT AXIS DEVIATION Compared to previous tracing, NJ interval is s lightly shorter. A PVC is now seen BORDERLINE ECG PREVIOUS TRACING : 05/29/2015 19.57 DOCTOR: Saulo Gautam Interpretating Date/Time 09/17/2016 14:41:49
== END 2016-09-17 13:44 | disposition home or self-care (01) ==
LOC: NEPE 10:16
DX: J20.9 Acute bronchitis, unspecified (principal); C90.00 Multiple myeloma not having achieved remission; J44.0 Chronic obstructive pulmonary disease with (acute) lower respiratory infection; Z92.21 Personal history of antineoplastic chemotherapy; D64.9 Anemia, unspecified; M19.90 Unspecified osteoarthritis, unspecified site; I10 Essential (primary) hypertension
CPT/HCPCS: 71010; 80053; 82550; 83735; 83880; 84484; 85025; 93005; 94640; 94664; 99284; J1642; J2930

== ENCOUNTER 2016-10-07 14:08 | Emergency (ER) | payer MEDICARE, OTHER ==
[~2016-10-07] VITALS: Ht 157.5 cm; Wt 52.5 kg
[~2016-10-07 14:08] MED LIST changes: -AMPH1TAB29 PO; -ASPI1TAB69 PO; -AUGM875T PO; +BACT800T5 PO; -BENZ100 PO; -IPRA0.06 EACH NARE; +IPRASOL INH; +PRED-503 PO
[2016-10-07 14:21] VITALS: BP 122/85; PULSE 92; RESP 16; TEMP 98.3; O2SAT 96
[2016-10-07] MEDS ORDERED: HYDROmorphone HCL PF 2 MG/ML VIAL IM ONE (14:30)
--- NOTE | 2016-10-07 14:33 | PD ---
HPI Chief Complaint: Musculoskeletal Complaint Time Seen by Provider: 14:20 Travel History International Travel<30 days: No Contact w/Intl Traveler<30days: No Traveled to known affect area: No History of Present Illness HPI This is a 66-year-old male who has a history of multiple myeloma who presents to the emergency department with neck pain that's been intermittent for the past 2 months but severe over the past several days waking him up in the middle the night, constant, sharp, worse on the right side of his neck. He denies any numbness, weakness, difficulty walking or recent injury to his neck. He takes hydromorphone 8 mg oral as breakthrough pain and takes methadone daily. I saw him once before for this pain in August. At that time I did a CT of his neck which demonstrated some fine lesions in the bone but no obvious compression fracture or large lytic lesions. He says that after he received an injection for pain he felt like a new man the following day. He follows with Dr. Hernandez for his myeloma. PFSH Past Medical History Hx Anticoagulant Therapy: No Anemia: Yes Arthritis: Yes Asthma: Yes Anxiety: Yes Cancer: Yes (multiple myeloma) Cardiovascular Problems: Yes (HTN) High Cholesterol: Yes (BORDERLINE) Chemotherapy: Yes (ORAL CHEMO) Chest Pain: Yes COPD: Yes Cerebrovascular Accident: No Diabetes: No Diminished Hearing: No Endocrine: No GERD: Yes Genitourinary: No Herniated Disk: Yes ("COLLAPSED" DISCS) Hypertension: Yes Immune Disorder: No Implanted Vascular Access Dvce: Yes Musculoskeletal: Yes (KYPHOPLASTY: SPINE DUE TO COLLAPSED DISCS AND FRACTURES) Neurologic: No Reproductive: No Respiratory: Yes (COPD, EMPHYSEMA) Immunizations Current: Yes Pneumonia: Yes Radiation Therapy: Yes (HX OF ) Shingles: Yes Past Surgical History Body Medical Devices: RIGHT SUBCLAVIAN INFUSAPORT: JUNE 2014 Other Surgery: Yes (infusaport r chest) Family History Family Hypercholesterolemia: Yes (SISTER, BROTHER, MOTHER) Social History Alcohol Use: No Tobacco Use: No (QUIT 2003: October smoked cigs 3 ppd) Substance Use: No Allergies-Medications (Allergen,Severity, Reaction): Coded Allergies: Azithromycin (Verified Allergy, Severe, Rash, 09/17/16) Phenergan (Verified Allergy, Severe, ANXIETY, 09/17/16) Augmentin (Verified Adverse Reaction, Severe, ABD PAIN, 09/17/16) IS CURRENTLY TAKING Doxycycline (Verified Adverse Reaction, Mild, ABDOMINAL PAIN, 09/17/16) Levaquin (Verified Adverse Reaction, Mild, BODY ACHES, 09/17/16) patient denies allergy to this medicine and has taken it as recently as April 2015 without adverse reaction. STASTES HE CAN TAKE IT Reported Meds & Prescriptions Reported Meds & Active Scripts Active Duoneb (Ipratropium-Albuterol Neb) 0.5-2.5 Mg/3 Ml Neb 1 Nebule INH Q4HR NEB Bactrim DS (Sulfamethoxazole-Trimethoprim) 800-160 Mg Tab 1 Tab PO BID Deltasone (Prednisone) 20 Mg Tab 40 Mg PO DAILY 4 Days Reported Zofran (Ondansetron HCl) 4 Mg Tab 4 Mg PO Q6HR PRN K-Tab (Potassium Chloride) 20 Meq Tab 20 Meq PO DAILY Zometa Inj (Zoledronic Acid) 4 Mg/100 Ml Inj 4 Mg IV MONTHLY Albuterol Neb (Albuterol Sulfate) 2.5 Mg/3 Ml Neb 2.5 Mg NEB QID NEB Symbicort Inh (Budesonide/Formoterol Fumarate) 160-4.5 Mcg/Act Aero 2 Puff INH Q12HR Calcium (Oyster Shell) 500 Mg Tab 1,000 Mg PO DAILY Robaxin (Methocarbamol) 750 Mg Tab 750 Mg PO TID [ureña signature] 10 Mg PO DAILY Amlodipine (Amlodipine Besylate) 5 Mg Tab 5 Mg PO DAILY Methadone (Methadone HCl) 10 Mg Tab 10 Mg PO TID Gabapentin 600 Mg Tab 600 Mg PO TID Hydromorphone (Hydromorphone HCl) 8 Mg Tab 8 Mg PO Q6H PRN Dexamethasone 4 Mg Tab 20 Mg PO EVERY MON Omeprazole 20 Mg Tab 20 Mg PO BID Spiriva Handihaler (Tiotropium Inh) 18 Mcg Cap 18 Mcg INH DAILY 1 capsule = 18 mcg Senna Plus 8.6-50 mg (Sennosides-Docusate Sodium) 1 Tab Tab 1 Tab PO BID [revlimid] 25 Mg PO DAILY Review of Systems Except as stated in HPI: all other systems reviewed are Neg Physical Exam Narrative GENERAL:Well appearing, no acute distress SKIN: Warm and dry. HEAD: Atraumatic. Normocephalic. EYES: Pupils equal and round. No injection or drainage. ENT: Moist mucous membranes NECK: Trachea midline. Tender to palpation along the right paracervical muscles with no focal vertebral tenderness in the cervical spine. CARDIOVASCULAR: Regular rate and rhythm. No murmur appreciated. RESPIRATORY: Clear to auscultation. Breath sounds equal bilaterally. GASTROINTESTINAL: Abdomen soft, non-tender, nondistended. MUSCULOSKELETAL: No obvious deformities. NEUROLOGICAL: Awake and alert. No obvious cranial nerve deficits. 5 out of 5 strength in the bilateral upper and lower extremities. PSYCHIATRIC: Appropriate mood and affect; insight and judgment normal. Data Data Last Documented VS Vital Signs Date Time Temp Pulse Resp B/P Pulse Ox O2 Delivery O2 Flow Rate FiO2 10/07/16 14:24 16 10/07/16 14:21 98.3 92 122/85 96 Orders Hydromorphone Pf Inj (Dilaudid Pf Inj) (10/07/16 14:30) [facility] Medical Decision Making Medical Screen Exam Complete: Yes Emergency Medical Condition: Yes Medical Record Reviewed: Yes (patient was seen here in August for similar symptoms by me and had a CT of the cervical spine which was reassuring.) Interpretation(s) Afebrile, mild tachycardia, normotensive Differential Diagnosis Compression fracture, lytic lesion, herniated disc, cervical strain Narrative Course This is a 66-year-old male who has a history of multiple myeloma who presents to the emergency department with acute on chronic neck pain. I saw him for this in August and a CT of the cervical spine demonstrates no large lytic lesions or compression fracture. His pain seems to be the same since then just acutely worsen today. He doesn't have any neurologic symptoms and he has a normal exam. I think it safe to treat him for pain and have him follow-up with his oncologist as needed for an MRI as an outpatient. Diagnosis Primary Impression: Neck pain Patient Instructions: General Instructions Additional Instructions: If you develop numbness, weakness, severe pain or worsening pain return to the emergency room. Follow-up with your oncologist if your symptoms have not improved for a possible MRI evaluation of her neck. Med/Other Pt SpecificInfo: No Change to Meds Disposition: 01 DISCHARGE HOME Condition: Stable Nilsa Andrew MD Oct 07, 2016 14:33
== END 2016-10-07 15:38 | disposition home or self-care (01) ==
LOC: PHED 14:08
DX: M54.2 Cervicalgia (principal); C90.00 Multiple myeloma not having achieved remission; J45.909 Unspecified asthma, uncomplicated; I10 Essential (primary) hypertension; J44.9 Chronic obstructive pulmonary disease, unspecified; Z87.891 Personal history of nicotine dependence
CPT/HCPCS: 96372; 99283; J1170

== ENCOUNTER 2016-10-28 13:06 | Inpatient (IN) | payer MEDICARE, OTHER ==
[2016-10-28] VITALS (13 sets, daily range): BP systolic 110–212; BP diastolic 58–99; PULSE 83–135; RESP 16–34; TEMP 97.9–98.4; O2SAT 98–100
[~2016-10-28] VITALS: Ht 165.1 cm; Wt 49.2 kg
[~2016-10-28 13:06] MED LIST changes: -BACT800T5 PO; -PRED-503 PO; -[UNRECOGNIZED DRUG - REMARK] PO
[2016-10-28] MEDS ORDERED: SUCCINYLCHOLINE CHLORIDE 200 MG/10 ML VIAL ONE (13:25)
[2016-10-28] MEDS ORDERED: ETOMIDATE 20 MG/10 ML VIAL ONE (13:25)
[2016-10-28] MEDS ORDERED: PROPOFOL 1000 MG/100 ML INJ 100 ML ONE (13:29)
[2016-10-28] MEDS ORDERED: ETOMIDATE 20 MG/10 ML VIAL IVP ONE (13:45)
[2016-10-28] MEDS ORDERED: RESP: ALBUTEROL 2.5 MG/IPRATROPIUM 0.5 MG NEB (SCH) INH ONE (13:45)
[2016-10-28] MEDS ORDERED: SODIUM CHLORIDE 0.9% FLUSH 10 ML FLUSH IVF PRN (13:45)
--- NOTE | 2016-10-28 13:50 | PD ---
HPI Chief Complaint: Respiratory Distress Time Seen by Provider: 13:16 Travel History International Travel<30 days: No Contact w/Intl Traveler<30days: No Traveled to known affect area: No History of Present Illness HPI This patient presents in respiratory distress. He has history of COPD and uses nebulizers at home. He is too short of breath to provide any useful history or review of systems. His called 911 when she noticed his distress. He was given IV site metal and 3 nebulizer treatments in route. He arrives in critical shape in profound distress. He is struggling to breathe and can't speak. Symptoms are severe. Duration one day. No alleviating factors. His reports that he is a full code except specifically will not allow chest compressions. She is in agreement with ventilation support. PFSH Past Medical History Hx Anticoagulant Therapy: No Anemia: Yes Arthritis: Yes Asthma: Yes Anxiety: Yes Cancer: Yes (multiple myeloma) Cardiovascular Problems: Yes (HTN) High Cholesterol: Yes (BORDERLINE) Chemotherapy: Yes (ORAL CHEMO) Chest Pain: Yes COPD: Yes Cerebrovascular Accident: No Diabetes: No Diminished Hearing: No Endocrine: No GERD: Yes Genitourinary: No Herniated Disk: Yes ("COLLAPSED" DISCS) Hypertension: Yes Immune Disorder: No Implanted Vascular Access Dvce: Yes Musculoskeletal: Yes (KYPHOPLASTY: SPINE DUE TO COLLAPSED DISCS AND FRACTURES) Neurologic: No Reproductive: No Respiratory: Yes (COPD) Immunizations Current: Yes Pneumonia: Yes Radiation Therapy: Yes (HX OF ) Shingles: Yes Tetanus Vaccination: < 5 Years Influenza Vaccination: Yes Past Surgical History Body Medical Devices: RIGHT SUBCLAVIAN INFUSAPORT: JUNE 2014 Other Surgery: Yes (infusaport r chest) Family History Family Hypercholesterolemia: Yes (SISTER, BROTHER, MOTHER) Social History Alcohol Use: No Tobacco Use: No (QUIT 2003: October smoked cigs 3 ppd) Substance Use: No Allergies-Medications (Allergen,Severity, Reaction): Coded Allergies: Azithromycin (Verified Allergy, Severe, Rash, 10/28/16) Phenergan (Verified Allergy, Severe, ANXIETY, 10/28/16) Augmentin (Verified Adverse Reaction, Severe, ABD PAIN, 10/28/16) IS CURRENTLY TAKING Doxycycline (Verified Adverse Reaction, Mild, ABDOMINAL PAIN, 10/28/16) Levaquin (Verified Adverse Reaction, Mild, BODY ACHES, 10/28/16) patient denies allergy to this medicine and has taken it as recently as April 2015 without adverse reaction. STASTES HE CAN TAKE IT Reported Meds & Prescriptions Reported Meds & Active Scripts Active Duoneb (Ipratropium-Albuterol Neb) 0.5-2.5 Mg/3 Ml Neb 1 Nebule INH Q4HR NEB Reported Zofran (Ondansetron HCl) 4 Mg Tab 4 Mg PO Q6HR PRN K-Tab (Potassium Chloride) 20 Meq Tab 20 Meq PO DAILY Zometa Inj (Zoledronic Acid) 4 Mg/100 Ml Inj 4 Mg IV MONTHLY Albuterol Neb (Albuterol Sulfate) 2.5 Mg/3 Ml Neb 2.5 Mg NEB QID NEB Symbicort Inh (Budesonide/Formoterol Fumarate) 160-4.5 Mcg/Act Aero 2 Puff INH Q12HR Calcium (Oyster Shell) 500 Mg Tab 1,000 Mg PO DAILY Robaxin (Methocarbamol) 750 Mg Tab 750 Mg PO TID Amlodipine (Amlodipine Besylate) 5 Mg Tab 5 Mg PO DAILY Methadone (Methadone HCl) 10 Mg Tab 10 Mg PO TID Gabapentin 600 Mg Tab 600 Mg PO TID Hydromorphone (Hydromorphone HCl) 8 Mg Tab 8 Mg PO Q6H PRN Dexamethasone 4 Mg Tab 20 Mg PO EVERY MON Omeprazole 20 Mg Tab 20 Mg PO BID Spiriva Handihaler (Tiotropium Inh) 18 Mcg Cap 18 Mcg INH DAILY 1 capsule = 18 mcg Senna Plus 8.6-50 mg (Sennosides-Docusate Sodium) 1 Tab Tab 1 Tab PO BID [revlimid] 25 Mg PO 2 WEEKS ON 2 WKS OFF Review of Systems General / Constitutional: No: Fever Eyes: No: Visual changes HENT: No: Headaches Cardiovascular: No: Chest Pain or Discomfort Respiratory: Positive: Shortness of Breath Gastrointestinal: No: Abdominal Pain Genitourinary: No: Dysuria Musculoskeletal: No: Pain Skin: No Rash Neurologic: No: Weakness Psychiatric: No: Depression Endocrine: No: Polydipsia Hematologic/Lymphatic: No: Easy Bruising Physical Exam Narrative GENERAL: Thin elderly appearing man in profound respiratory distress. SKIN: Warm and dry. HEAD: Atraumatic. Normocephalic. EYES: Pupils equal and round. No scleral icterus. No injection or drainage. ENT: No nasal bleeding or discharge. Mucous membranes pink and moist. NECK: Trachea midline. No JVD. CARDIOVASCULAR: Regular rate and rhythm. No murmur appreciated. RESPIRATORY: Positive accessory muscle use. Very little breath sounds. Diminished air movement. Some expiratory wheeze. Breath sounds equal bilaterally. GASTROINTESTINAL: Abdomen soft, non-tender, nondistended. Hepatic and splenic margins not palpable. MUSCULOSKELETAL: No obvious deformities. No clubbing. No cyanosis. No edema. NEUROLOGICAL: Awake but confused. No obvious cranial nerve deficits. Difficult to accurately gauge motor strength or sensation given his limited participation. He is nonverbal at this time. PSYCHIATRIC: Unable to test mood and affect; insight and judgment reduced. Data Data Last Documented VS Vital Signs Date Time Temp Pulse Resp B/P Pulse Ox O2 Delivery O2 Flow Rate FiO2 10/28/16 13:56 21 100 Ventilator 10/28/16 13:35 126 132/58 Orders Electrocardiogram (10/28/16 ) Etomidate Inj (Amidate Inj) (10/28/16 13:25) Succinylcholine Inj (Quelicin Inj) (10/28/16 13:25) Propofol 1000 Mg/100 Ml Inj (Diprivan 10 (10/28/16 13:29) Chest, Single Ap (10/28/16 13:41) Arterial Blood Gas (Abg) (10/28/16 13:41) Ecg Monitoring (10/28/16 13:41) Iv Access Insert/Monitor (10/28/16 13:41) Ng Gastric Tube Insert/Monitor (10/28/16 13:41) Urinary Catheter Insert/Apply (10/28/16 13:41) Oximetry (10/28/16 13:41) Oxygen Administration (10/28/16 13:41) Etomidate Inj (Amidate Inj) (10/28/16 13:45) Albuterol-Ipratropium Neb (Duoneb Neb) (10/28/16 13:45) Sodium Chloride 0.9% Flush (Ns Flush) (10/28/16 13:45) Restraints Non-Violent FORTUNATO.Q3H (10/28/16 13:41) Complete Blood Count With Diff (10/28/16 13:41) Basic Metabolic Panel (Bmp) (10/28/16 13:41) Iv Access Insert/Monitor (10/28/16 13:41) Propofol 1000 Mg/100 Ml Inj (Diprivan 10 (10/28/16 14:00) ^ Infusion (10/28/16 13:50) RASS (10/28/16 13:50) Neurological Rass Scale FORTUNATO.Q2H (10/28/16 13:50) Admit Order (Ed Use Only) (10/28/16 14:18) Labs Laboratory Tests Test 10/28/16 10/28/16 12:45 14:00 White Blood Count 11.9 TH/MM3 Red Blood Count 4.56 MIL/MM3 Hemoglobin 12.2 GM/DL Hematocrit 38.3 % Mean Corpuscular Volume 84.0 FL Mean Corpuscular Hemoglobin 26.8 PG Mean Corpuscular Hemoglobin 31.9 % Concent Red Cell Distribution Width 18.1 % Platelet Count 181 TH/MM3 Mean Platelet Volume 9.1 FL Neutrophils (%) (Auto) 70.4 % Lymphocytes (%) (Auto) 11.2 % Monocytes (%) (Auto) 12.9 % Eosinophils (%) (Auto) 4.4 % Basophils (%) (Auto) 1.1 % Neutrophils # (Auto) 8.3 TH/MM3 Lymphocytes # (Auto) 1.3 TH/MM3 Monocytes # (Auto) 1.5 TH/MM3 Eosinophils # (Auto) 0.5 TH/MM3 Basophils # (Auto) 0.1 TH/MM3 CBC Comment DIFF FINAL Differential Comment Sodium Level 141 MEQ/L Potassium Level 3.9 MEQ/L Chloride Level 106 MEQ/L Carbon Dioxide Level 30.1 MEQ/L Anion Gap 5 MEQ/L Blood Urea Nitrogen 14 MG/DL Creatinine 0.53 MG/DL Estimat Glomerular Filtration 156 ML/MIN Rate Random Glucose 157 MG/DL Calcium Level 7.7 MG/DL Blood Gas Puncture Site RT RADIAL Blood Gas Patient Temperature 98.6 Blood Gas HCO3 26 mmol/L Blood Gas Base Excess -0.4 mmol/L Blood Gas Oxygen Saturation 98 % Arterial Blood pH 7.26 Arterial Blood Partial 60 mmHg Pressure CO2 Arterial Blood Partial 288 mmHG Pressure O2 Arterial Blood Oxygen Content 17.4 Vol % Arterial Blood 0.8 % Carboxyhemoglobin Arterial Blood Methemoglobin 0.8 % Blood Gas Hemoglobin 12.2 G/DL Oxygen Delivery Device VENTILATOR Blood Gas Ventilator Setting 450/14/PEEP5 Blood Gas Inspired Oxygen 60 % MDM Medical Decision Making Medical Screen Exam Complete: Yes Emergency Medical Condition: Yes Medical Record Reviewed: Yes Differential Diagnosis COPD, pneumonia, pneumothorax Narrative Course I have reviewed the patient's electronic medical record. Reviewed his most recent oncology evaluation. 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 He is getting chemotherapy orally Multiple IVs placed Patient is critically ill requiring emergent intubation to salvage I reviewed with who is in agreement After the risks and benefits were discussed the following procedure was performed: INTUBATION: The patient was put in optimal position for the procedure. Rapid sequence intubation was initiated by me using 20 milligrams of etomidate IV. The patient was intubated with a 8-0 cuffed endotracheal tube. Tube placement was confirmed by visualization of the tube and balloon passing through the cords , capnometry and subsequent chest x-ray. Breath sounds were equal and well aerated bilaterally postintubation. No breath sounds over stomach. Patient tolerated procedure well. I reviewed his post and elevation chest x-ray which shows good placement of tube I started him on Diprivan drip Velázquez and NG tube and restraints placed CBC is normal Metabolic profile is normal I gave him additional nebulizer treatment Patient is critically ill requiring intensive care support on ventilator for acute respiratory failure from COPD I reviewed the ABG which shows a pH of 7.26 and a CO2 of 60. I've increased the ventilatory rate I reviewed in detail with the clinical project manager will admit to intensive care Critical Care Narrative Aggregate critical care time was 38 minutes. Time to perform other separately billable procedures was not included in the critical care time. My time did not include minutes spent treating any other patients simultaneously or on activities that did not directly contribute to the patient's treatment. The services I provided to this patient were to treat and/or prevent clinically significant deterioration that could result in: Cardiopulmonary arrest, complete respiratory collapse, tension pneumothorax I provided critical care services requiring my management, as noted below: Chart data review, documentation time, medication orders and management, vital sign assessments/reviewing monitor data, ordering and reviewing lab tests, ordering and interpreting/reviewing x-rays and diagnostic studies, care of the patient and discussion of the patient with the admitting physicians. Diagnosis Primary Impression: Acute respiratory failure with hypercapnia Additional Impression: COPD exacerbation Faustino Walker MD Oct 28, 2016 13:50
[2016-10-28] MEDS: PROPOFOL 1000 MG/100 ML INJ 100 ML IV SCH ×2 (13:58→18:05)
[2016-10-28 14:05] LABS: AUTOMATED NEUTROPHIL # 8.3 TH/MM3 (1.8-7.7); BASOPHIL # 0.1 TH/MM3 (0-0.2); BASOPHIL % 1.1 % (0.0-2.0); EOSINOPHIL # 0.5 TH/MM3 (0-0.4); EOSINOPHIL % 4.4 % (0.0-4.0); HEMATOCRIT 38.3 % (39.0-51.0); HEMO FLAGS DIFF FINAL; LYMPH % 11.2 % (9.0-44.0); LYMPHOCYTE # 1.3 TH/MM3 (1.0-4.8); MEAN CORPUSCULAR HEMOGLOBIN 26.8 PG (27.0-34.0); MEAN CORPUSCULAR HGB CONC 31.9 % (32.0-36.0); MONO % 12.9 % (0.0-8.0); NEUT % 70.4 % (16.0-70.0); PLATELET COUNT 181 TH/MM3 (150-450); RED BLOOD COUNT 4.56 MIL/MM3 (4.50-5.90); RED CELL DISTRIBUTION WIDTH 18.1 % (11.6-17.2); WHITE BLOOD COUNT 11.9 TH/MM3 (4.0-11.0)
[2016-10-28 14:10] LABS: BLOOD GAS BASE EXCESS -0.4 mmol/L (-2-2); BLOOD GAS CARBOXYHEMOGLOBIN 0.8 % (0-4); BLOOD GAS HCO3 26 mmol/L (22-26); BLOOD GAS METHEMOGLOBIN 0.8 % (0-2); BLOOD GAS O2 HGB SATURATION 98 % (90-100); BLOOD GAS OXYGEN CONTENT 17.4 Vol % (12.0-20.0); BLOOD GAS PCO2 60 mmHg (38-42); BLOOD GAS PO2 288 mmHG (61-120); BLOOD GAS TOTAL HGB 12.2 G/DL (12.0-16.0); CRITICAL VALUE YES; FIO2 60 %; OXYGEN DEVICE VENTILATOR; TEMP CORR TO 98.6; VENT SETTINGS 450/14/PEEP5
[2016-10-28 14:11] LABS: DRAW SITE RT RADIAL; NUMBER OF ARTERIAL PUNCTURES 1; STAT YES; ULNAR PULSE PRESENT
[2016-10-28 14:16] LABS: BICARBONATE 30.1 MEQ/L (21.0-32.0); POTASSIUM 3.9 MEQ/L (3.5-5.1)
--- NOTE | 2016-10-28 14:29 | RADRPT ---
EXAM DATE/TIME: 10/28/2016 13:57 [facility] COMPARISON: CHEST SINGLE AP, September 17, 2016, 10:48. INDICATIONS : ET tube placement MEDICAL HISTORY : Chronic obstructive pulmonary disease. Emphysema. Multiple Myeloma. SURGICAL HISTORY : Port placement ENCOUNTER: Initial ACUITY: 1 day PAIN SCORE: Non-responsive. LOCATION: Bilateral chest FINDINGS: There is an endotracheal tube with the tip just beyond the level of the clavicles. There is a gastric tube which extends beyond the level of the diaphragm. Right-sided central line with the tip overlyin g the distal SVC. The lungs are hyperinflated and clear. No evidence of pneumothorax or focal airspace disease. Heart s ize is normal. Osseous structures demonstrates diffuse osteopenia and kyphoplasty treatment within the lower thoraci c spine. CONCLUSION: Diffuse emphysematous change without evidence of acute cardiopulmonary disease. Endot emiliano tube appears appropriately positioned. Santa Brewer MD on October 28, 2016 at 14:20 Board Certified Radiologist. This report was verified electronically.
[2016-10-28] MEDS ORDERED: DEXTROSE 50% IN WATER 50 ML VIAL(D50) IV PUSH PRN (14:45)
[2016-10-28] MEDS ORDERED: CHLORHEXIDINE GLUCONATE 2 % 1 PACK (2 CLOTHS) TOP PRN (14:45)
[2016-10-28] MEDS ORDERED: RESP: ALBUTEROL 2.5 MG/IPRATROPIUM 0.5 MG NEB (PRN) INH (14:45)
[2016-10-28] MEDS ORDERED: MISCELLANEOUS NURSING INFORMATION XX SCH (14:45)
[2016-10-28] MEDS: INSULIN NovoLIN REGULAR SUPPLEMENTAL SCALE SQ SCH ×2 (14:45→20:27)
[2016-10-28] MEDS ORDERED: GLUCAGON 1 MG/ML VIAL OTHER PRN (14:45)
[2016-10-28] MEDS: SODIUM CHLOR 0.9% 1000 ML INJ 1,000 ML IV SCH (15:09)
[2016-10-28] MEDS: PANTOPRAZOLE SODIUM 40 MG VIAL IV SCH (15:09)
[2016-10-28] MEDS: ENOXAPARIN SODIUM 40 MG/0.4 ML SYRINGE SQ SCH (15:09)
[2016-10-28] MEDS: TIOTROPIUM BROMIDE 18 MCG INH INH SCH (15:15)
[2016-10-28] MEDS: AZTREONAM INJ 1,000 MG in SODIUM CHLORIDE 0.9% INJ 100 ML IV SCH ×2 (15:59→22:41)
[2016-10-28 16:00] LABS: BACTERIA, URINE RARE /hpf; BLOOD, URINE TRACE (NEG); GLUCOSE,URINE 70 mg/dL (NEG); KETONE, URINE 10 mg/dL (NEG); MUCUS URINE FEW /lpf (OCC); NITRITE,URINE NEG (NEG); PH, URINE 5.5 (5.0-8.5); SQUAMOUS EPITHELIAL CELL URINE <1 /hpf (0-5); URINE COLOR YELLOW (YELLW/STRAW)
[2016-10-28 16:01] LABS: COMMENT (UR) CATH-CULTURE IND; CULTURE IF INDICATED CATH CULTURE IND
[2016-10-28] MEDS: RESP: ALBUTEROL 2.5 MG/IPRATROPIUM 0.5 MG NEB (SCH) INH ×2 (16:09→20:19)
[2016-10-28] MEDS ORDERED: fentaNYL 50 MCG/HR PATCH TD SCH (17:00)
--- NOTE | 2016-10-28 17:54 | MH ---
cc: MALIK GONZALEZ DATE OF ADMISSION 10/28/2016 DATE OF 1950 HISTORY OF PRESENT ILLNESS The patient is a 66-year-old male with a past medical history of severe COPD, multiple myeloma, anemia, gastroesophageal reflux disease and hypertension. He presented to [facility] ED with a one-day history of progressive worsening shortness of breath that started earlier today. The patient tried using his nebulizers without any significant relief. His called the paramedics who brought him to the ED for further evaluation and management of his symptoms. The patient was given Solu-Medrol and three nebulizer treatments en route and, on arrival, he was in severe distress. The patient was subsequently intubated with etomidate and succinylcholine and placed on full mechanical ventilation. ABG post intubation showed a pH of 7.26, CO2 60, pAO2 288, bicarb 26, saturation 98%. Chest x-ray post intubation showed diffuse emphysematous change without any evidence of acute cardiopulmonary disease. ET tube is above the cherrie. No associated symptoms of chest pain, fever, chills, cough or any constitutional symptoms. He is not on any oxygen at home and is being followed by Dr. Crow, his outpatient mushroom spawn maker. According to the , no history of any mechanical ventilation in the past for COPD. The patient was tachycardic and hypertensive on arrival with a blood pressure of 212/99 and a pulse of 135. He is currently sedated with Diprivan and on full mechanical ventilation. No history of any exposure to sick contacts. PAST MEDICAL HISTORY 1. Severe COPD, 2. Multiple myeloma 3. Anemia 4. Gastroesophageal reflux disease, 5. Hypertension. PAST SURGICAL HISTORY 1. Previous port placement. 2. Previous kyphoplasty FAMILY HISTORY Hyperlipidemia runs in the family. SOCIAL HISTORY The patient quit smoking 15 years ago and he used to smoke two packs per day for approximately 40 years. Nondrinker. ALLERGIES Z-MAILE - INCLUDES LEVAQUIN AUGMENTIN (However, per patient's the patient received a dose of antibiotics in the past its side effects related to upset stomach.) PHENERGAN MEDICATIONS 1. Zofran. 2. Albuterol. 3. Symbicort. 4. Calcium. 5. Robaxin. 6. Amlodipine 7. Gabapentin 8. Decadron 9. Omeprazole 10. Spiriva. REVIEW OF SYSTEMS As per HPI. The rest of review of systems unremarkable. PHYSICAL EXAMINATION GENERAL: A 66-year-old male intubated for acute hypoxemic respiratory failure. VITAL SIGNS: Temperature 98.4, pulse of 99, blood pressure 110/63, saturation 100%, vent setting PRVC/assist control rate of 16, tidal volume 450. I time 0.8, PEEP of 5, 60% FIO2. HEENT: Atraumatic, normocephalic. Pupils equal, round and reactive to light and accommodation. extraocular muscles intact. Conjunctivae pink. Nonicteric sclerae. Oral mucosa within normal. NECK: Supple. No JVD, adenopathy or thyromegaly. Trachea in the midline. Orally intubated. CARDIOVASCULAR: Tachycardic, normal SI S2, no murmurs, rubs or gallops noted. PULMONARY: Bilateral equal air entry, overall diminished. No crackles or wheezing. ABDOMEN: Soft, nontender, no distension. Positive bowel sounds. EXTREMITIES: No cyanosis, clubbing, trace edema. NEUROLOGIC: Intubated and sedated. LABORATORY DATA Sodium 141, potassium 3.9, chloride 106, CO2 30, BUN 14, creatinine 0.53, glucose 157, calcium 7.7. WBC 11.9, hemoglobin 12.2, hematocrit 38, platelet count of 181. IMAGING STUDIES Chest x-ray showed COPD changes with no evidence of any cardiopulmonary disease. ET tube above the cherrie. IMPRESSION 1. Acute hypoxemic and hypercapnic respiratory failure. 2. COPD exacerbation. 3. Hypertension 4. Multiple myeloma 5. Anemia 6. Gastroesophageal reflux disease RECOMMENDATIONS 1. Continue with Diprivan infusion for sedation and daily sedation vacation. Monitor neuro status closely. 2. Continue with vent support and maintain sats above 92%. 3. Bronchodilators in the form of DuoNeb q. six and we will resume Symbicort and Spiriva. We will decrease FIO2 to 40% and respiratory rate increased from 14-16. We will repeat ABG. 4. Continue with IV steroids Solu-Medrol 60 mg IV q. eight. 5. Start spontaneous breathing trials in a.m. as tolerated. 6. Monitor heart rate and blood pressure closely and maintain MAP greater than 65 mmHg. 7. Monitor renal function Is and Os and electrolyte replacement per protocol. Place on IV fluids in the form of NS at 75 an hour. 8. Keep n.p.o. for now and place on Protonix 40 mg IV daily. Start tube feeds within 24 hours if the patient remains intubated. 9. Place on empiric antibiotics in the form of Aztreonam and monitor for signs of infections which include fever and WBC. We will obtain a sputum culture with gram stain and we will check nasal washing for influenza. Also, we will obtain a urinalysis with culture if indicated. A chest x-ray post intubation showed no acute cardiopulmonary disease. 10. Monitor CBC and we will consult oncology service regarding multiple myeloma. 11. Place on sliding scale insulin with Accu-Chek q. 6-hour for glycemic control as the patient will be on IV steroids. 12. GI prophylaxis with Protonix 40 mg daily and DVT prophylaxis with SCDs and Lovenox 40 mg subcu daily. Further recommendations will be based on hospital course. and the rest of the family members updated at the bedside. Critical care time 40 minutes excluding procedures. MD VIOLA Collins/ /2:55 PM /5:29 PM
--- NOTE | 2016-10-28 19:20 | MB ---
cc: ELLYN STANFORD DATE OF CONSULTATION 10/28/16 REASON FOR CONSULTATION A 66-year-old male who is intubated with respiratory failure and a history of multiple myeloma currently on treatment. PATIENT PROFILE The patient is a 66-year old male. He is and retired. He stopped smoking 13 years ago and had smoked two packs of cigarettes per day for 40 years. 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 HISTORY OF PRESENT ILLNESS The patient is a 66-year old male who has multiple myeloma dating back to 2013 when he was found to be anemic and had an elevated monoclonal IgG kappa light chain. A diagnosis of multiple myeloma was made. He has received multiple chemotherapies. In reviewing his records, he was last seen by his medical oncologist, Dr. Bolivar Hernandez, on 10/03/2016. At that time, he was recovering from an upper respiratory tract infection. He was taking Revlimid as a single agent 25 mg daily, 14 days on and 14 days off and Decadron 20 mg once a week. It is my understanding that his myeloma was stable. The patient is unable to give me a history as he is intubated. In reviewing the emergency room note, he presented to the ER in respiratory distress. He has severe COPD and was using a nebulizer at home. His called 9-1-1 and he was brought to the hospital in respiratory distress and was intubated. A chest x-ray on 10/28/2016 done following the intubation showed diffuse emphysematous changes without evidence of acute cardiopulmonary disease. The endotracheal tube was well placed. The lungs were hyperinflated. There was no evidence of pneumothorax. The bony structures showed diffuse osteopenia and evidence of a prior kyphoplasty. There were no infiltrate suggestive of an acute pneumonia. Of note on 07/27/[address] of the thorax done and this showed minimal patchiness within the left lung base consistent with atelectasis or small infiltrate. He had extensive emphysema. There are no pulmonary nodules. There was evidence of extensive lytic changes involving the bony structures and multiple compression deformities within the thoracic and lumbar spine. The patient has been started on Solu-Medrol and Azactam. He is receiving inhalers as well. PAST SURGICAL HISTORY 1. Hjhawu-J-Hnsc placement 2. Vertebroplasty August 2014 to T11 3. Vasectomy PAST MEDICAL HISTORY 1. Diagnosis of IgG kappa light chain myeloma made in July of 2014. The patient has received palliative radiation to the lumbar spine, left sacral iliac area and has received multiple chemotherapies and is currently on a regimen of Revlimid and dexamethasone. 2. Previous history of shingles. 3. Severe COPD 4. Arthritis. ALLERGIES AUGMENTIN ZITHROMAX DOXYCYCLINE LEVAQUIN PHENERGAN MEDICATIONS Medications at home 1. Albuterol. 2. Amlodipine 3. Symbicort 4. Dexamethasone 20 mg once a week 5. Gabapentin 6. Hydromorphone 8 mg p.o. q.6 h p.r.n. 7. DuoNebs 8. Methadone 10 mg p.o. t.i.d. 9. Robaxin 10. Omeprazole 11. Spiriva 12. Revlimid the dose is 25 mg 2 weeks on and 2 weeks off. FAMILY HISTORY Noncontributory. REVIEW OF SYSTEMS Not obtainable. PHYSICAL EXAMINATION GENERAL: A male who appears acutely ill. He is intubated. He is agitated. He does understand the conversation and can nod yes and no. VITAL SIGNS: Blood pressure 110/60, respiratory rate 18, pulse 90, afebrile. O2 sat on 60% is 99. HEENT: Head is normocephalic. Sclerae and conjunctivae are normal. No adenopathy. HEART: Regular rhythm. LUNGS: Sounds distant, rhonchi at the bases. ABDOMEN: Gaunt, no hepatosplenomegaly. EXTREMITIES: No edema. MUSCULOSKELETAL: Muscle wasting. NEUROLOGIC: Generalized but not focal weakness. In spite of being intubated, the patient is awake, alert and can follow instructions. ASSESSMENT The patient is a 66-year-old male who has multiple myeloma and has been on maintenance Revlimid two weeks and two weeks off and dexamethasone once a week. His current problem appears to be an exacerbation of his COPD. It does not appear to be directly related to the myeloma or the medications used to treat the myeloma RECOMMENDATIONS 1. Respiratory care as appropriate. He will require broad-spectrum antibiotics. 2. According to the summary statement from the admitting notes, this gentleman takes methadone 15 mg t.i.d. and hydromorphone. If this is in fact correct then he will need to be on narcotics as he will quickly suffer a withdrawal. A simple solution would be to put him on a Duragesic patch. Withdrawal I suspect would begin in about 24 hours as methadone has a long half life. I was able find his and he is taking narcotics chronically. I will write for Duragesic [address] Hernandez will be returning Sunday. He does not require the Revlimid presently. MD JAJA Staley/ /4:15 PM /6:54 PM MTDD
[2016-10-28] MEDS: BUDESONIDE-FORMOTEROL 160/4.5 MCG INHALER INH SCH (20:27)
[2016-10-28] MEDS: methylPREDNISolone SOD SUCC 125 MG/2 ML VIAL IV PUSH SCH (22:40)
[2016-10-29] VITALS (18 sets, daily range): BP systolic 115–147; BP diastolic 63–68; PULSE 61–104; RESP 16–28; TEMP 97.8–98.9; O2SAT 92–100
[2016-10-29] MEDS: PROPOFOL 1000 MG/100 ML INJ 100 ML IV SCH ×2 (00:14→04:55)
[2016-10-29] MEDS: RESP: ALBUTEROL 2.5 MG/IPRATROPIUM 0.5 MG NEB (SCH) INH ×6 (00:36→19:39)
[2016-10-29] MEDS: INSULIN NovoLIN REGULAR SUPPLEMENTAL SCALE SQ SCH ×4 (02:45→20:33)
[2016-10-29] MEDS: CHLORHEXIDINE GLUCONATE 2 % 1 PACK (2 CLOTHS) TOP SCH (03:55)
[2016-10-29 04:12] LABS: BICARBONATE 27.8 MEQ/L (21.0-32.0); MAGNESIUM 2.1 MG/DL (1.5-2.5); POTASSIUM 3.7 MEQ/L (3.5-5.1)
[2016-10-29] MEDS: methylPREDNISolone SOD SUCC 125 MG/2 ML VIAL IV PUSH SCH ×3 (04:55→21:42)
[2016-10-29] MEDS: SODIUM CHLOR 0.9% 1000 ML INJ 1,000 ML IV SCH (04:56)
[2016-10-29 05:03] LABS: AUTOMATED NEUTROPHIL # 8.7 TH/MM3 (1.8-7.7); BASOPHIL % 0.2 % (0.0-2.0); HEMATOCRIT 32.9 % (39.0-51.0); HEMO FLAGS DIFF FINAL; LYMPH % 1.1 % (9.0-44.0); LYMPHOCYTE # 0.1 TH/MM3 (1.0-4.8); MEAN CELL VOLUME 81.6 FL (80.0-100.0); MEAN CORPUSCULAR HEMOGLOBIN 27.5 PG (27.0-34.0); MEAN CORPUSCULAR HGB CONC 33.7 % (32.0-36.0); MONO % 2.3 % (0.0-8.0); NEUT % 96.4 % (16.0-70.0); PLATELET COUNT 134 TH/MM3 (150-450); RED BLOOD COUNT 4.03 MIL/MM3 (4.50-5.90); RED CELL DISTRIBUTION WIDTH 17.9 % (11.6-17.2); WHITE BLOOD COUNT 9.1 TH/MM3 (4.0-11.0)
[2016-10-29] MEDS: AZTREONAM INJ 1,000 MG in SODIUM CHLORIDE 0.9% INJ 100 ML IV SCH ×3 (06:30→21:42)
[2016-10-29] MEDS: BUDESONIDE-FORMOTEROL 160/4.5 MCG INHALER INH SCH ×3 (07:42→20:34)
[2016-10-29] MEDS: PANTOPRAZOLE SODIUM 40 MG VIAL IV SCH (07:42)
[2016-10-29] MEDS: TIOTROPIUM BROMIDE 18 MCG INH INH SCH (07:42)
[2016-10-29] MEDS ORDERED: MAGNESIUM SULFATE INJ 2 GM in SODIUM CHLORIDE 0.9% INJ 96 ML IV PRN (08:45)
[2016-10-29] MEDS ORDERED: MAGNESIUM OXIDE 400 MG TAB PO PRN (08:45)
[2016-10-29] MEDS ORDERED: POTASSIUM PHOSPHATE INJ 30 MMOL in SODIUM CHLOR 0.9% 250 ML INJ 250 ML IV PRN (08:45)
[2016-10-29] MEDS ORDERED: POTASSIUM CHLOR 40 MEQ PREMIX 100 ML IV PRN ×2 (08:45)
[2016-10-29] MEDS ORDERED: MAGNESIUM SULFATE INJ 4 GM in SODIUM CHLORIDE 0.9% INJ 92 ML IV PRN (08:45)
[2016-10-29] MEDS ORDERED: SODIUM PHOSPHATE INJ 30 MMOL in SODIUM CHLOR 0.9% 250 ML INJ 240 ML IV PRN (08:45)
[2016-10-29] MEDS ORDERED: POTASSIUM CHLOR 20 MEQ PREMIX 100 ML IV PRN ×2 (08:45)
[2016-10-29] MEDS ORDERED: POTASSIUM PHOSPHATE MONOBASIC 500 MG TAB PO PRN (08:45)
[2016-10-29] MEDS ORDERED: POTASSIUM PHOSPHATE MONOBASIC 500 MG TAB PO/TUBE PRN (08:45)
--- NOTE | 2016-10-29 08:48 | HHI.CCPN ---
Subjective Remarks/Hospital Course The patient is a 66-year-old male with a past medical history of severe COPD, multiple myeloma, anemia, gastroesophageal reflux disease and hypertension. He presented to [facility] ED with a one-day history of progressive worsening shortness of breath that started earlier today. The patient tried using his nebulizers without any significant relief. His called the paramedics who brought him to the ED for further evaluation and management of his symptoms. The patient was given Solu-Medrol and three nebulizer treatments en route and, on arrival, he was in severe distress. The patient was subsequently intubated with etomidate and succinylcholine and placed on full mechanical ventilation. ABG post intubation showed a pH of 7.26, CO2 60, pAO2 288, bicarb 26, saturation 98%. Chest x-ray post intubation showed diffuse emphysematous change without any evidence of acute cardiopulmonary disease. ET tube is above the cherrie. No associated symptoms of chest pain, fever, chills, cough or any constitutional symptoms. He is not on any oxygen at home and is being followed by Dr. 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 According to the , no history of any mechanical ventilation in the past for COPD. The patient was tachycardic and hypertensive on arrival with a blood pressure of 212 /99 and a pulse of 135. He is currently sedated with Diprivan and on full mechanical ventilation. No history of any exposure to sick contacts. 10/29 Patient is sedated with Diprivan and intubated. Afebrile. Objective Vital Signs Date Time Temp Pulse Resp B/P Pulse Ox O2 Delivery O2 Flow Rate FiO2 10/29/16 08:00 98.1 80 20 129/67 100 10/29/16 08:00 40 10/28/16 14:30 Ventilator Intake and Output 10/28/16 10/28/16 10/29/16 08:00 16:00 00:00 Intake Total 694 ml Output Total 350 ml Balance 344 ml Result Diagram: 10/29/16 0321 10/29/16 0321 Other Results Laboratory Tests Test 10/28/16 10/28/16 10/28/16 10/28/16 12:45 13:45 14:00 15:55 White Blood Count 11.9 TH/MM3 Red Blood Count 4.56 MIL/MM3 Hemoglobin 12.2 GM/DL Hematocrit 38.3 % Mean Corpuscular Volume 84.0 FL Mean Corpuscular Hemoglobin 26.8 PG Mean Corpuscular Hemoglobin 31.9 % Concent Red Cell Distribution Width 18.1 % Platelet Count 181 TH/MM3 Mean Platelet Volume 9.1 FL Neutrophils (%) (Auto) 70.4 % Lymphocytes (%) (Auto) 11.2 % Monocytes (%) (Auto) 12.9 % Eosinophils (%) (Auto) 4.4 % Basophils (%) (Auto) 1.1 % Neutrophils # (Auto) 8.3 TH/MM3 Lymphocytes # (Auto) 1.3 TH/MM3 Monocytes # (Auto) 1.5 TH/MM3 Eosinophils # (Auto) 0.5 TH/MM3 Basophils # (Auto) 0.1 TH/MM3 CBC Comment DIFF FINAL Differential Comment Sodium Level 141 MEQ/L Potassium Level 3.9 MEQ/L Chloride Level 106 MEQ/L Carbon Dioxide Level 30.1 MEQ/L Anion Gap 5 MEQ/L Blood Urea Nitrogen 14 MG/DL Creatinine 0.53 MG/DL Estimat Glomerular Filtration 156 ML/MIN Rate Random Glucose 157 MG/DL Calcium Level 7.7 MG/DL Urine Color YELLOW Urine Turbidity CLEAR Urine pH 5.5 Urine Specific [place] 1.015 Urine Protein 30 mg/dL Urine Glucose (UA) 70 mg/dL Urine Ketones 10 mg/dL Urine Occult Blood TRACE Urine Nitrite NEG Urine Bilirubin NEG Urine Urobilinogen LESS THAN 2.0 MG/DL Urine Leukocyte Esterase NEG Urine RBC 2 /hpf Urine WBC 2 /hpf Urine Squamous Epithelial <1 /hpf Cells Urine Amorphous Sediment OCC Urine Bacteria RARE /hpf Urine Mucus FEW /lpf Microscopic Urinalysis Comment CATH-CULTURE IND Blood Gas Puncture Site RT RADIAL Blood Gas Patient Temperature 98.6 Blood Gas HCO3 26 mmol/L Blood Gas Base Excess -0.4 mmol/L Blood Gas Oxygen Saturation 98 % Arterial Blood pH 7.26 Arterial Blood Partial 60 mmHg Pressure CO2 Arterial Blood Partial 288 mmHG Pressure O2 Arterial Blood Oxygen Content 17.4 Vol % Arterial Blood 0.8 % Carboxyhemoglobin Arterial Blood Methemoglobin 0.8 % Blood Gas Hemoglobin 12.2 G/DL Oxygen Delivery Device VENTILATOR Blood Gas Ventilator Setting 450/14/PEEP5 Blood Gas Inspired Oxygen 60 % Nasal Screen MRSA (PCR) NEGATIVE Test 10/29/16 03:21 White Blood Count 9.1 TH/MM3 Red Blood Count 4.03 MIL/MM3 Hemoglobin 11.1 GM/DL Hematocrit 32.9 % Mean Corpuscular Volume 81.6 FL Mean Corpuscular Hemoglobin 27.5 PG Mean Corpuscular Hemoglobin 33.7 % Concent Red Cell Distribution Width 17.9 % Platelet Count 134 TH/MM3 Mean Platelet Volume 9.1 FL Neutrophils (%) (Auto) 96.4 % Lymphocytes (%) (Auto) 1.1 % Monocytes (%) (Auto) 2.3 % Eosinophils (%) (Auto) 0.0 % Basophils (%) (Auto) 0.2 % Neutrophils # (Auto) 8.7 TH/MM3 Lymphocytes # (Auto) 0.1 TH/MM3 Monocytes # (Auto) 0.2 TH/MM3 Eosinophils # (Auto) 0.0 TH/MM3 Basophils # (Auto) 0.0 TH/MM3 CBC Comment DIFF FINAL Differential Comment Sodium Level 140 MEQ/L Potassium Level 3.7 MEQ/L Chloride Level 106 MEQ/L Carbon Dioxide Level 27.8 MEQ/L Anion Gap 6 MEQ/L Blood Urea Nitrogen 13 MG/DL Creatinine 0.39 MG/DL Estimat Glomerular Filtration 222 ML/MIN Rate Random Glucose 127 MG/DL Calcium Level 7.7 MG/DL Phosphorus Level 2.1 MG/DL Magnesium Level 2.1 MG/DL Imaging Last Impressions Chest X-Ray 10/28/16 1341 Signed Impressions: Service Date/Time: Friday, October 28, 2016 13:57 - CONCLUSION: Diffuse emphysematous change without evidence of acute cardiopulmonary disease. Endotracheal tube appears appropriately positioned. Santa Brewer MD Objective Remarks GENERAL: Patient is 66 yo intubated and sedated. SKIN: Warm and dry. HEAD: Normocephalic. EYES: No scleral icterus. No injection or drainage. NECK: Supple, trachea midline. No JVD or lymphadenopathy. CARDIOVASCULAR: Regular rate and rhythm without murmurs, gallops, or rubs. RESPIRATORY: Breath sounds equal bilaterally. No accessory muscle use. Diminished. GASTROINTESTINAL: Abdomen soft, non-tender, nondistended. MUSCULOSKELETAL: No cyanosis, or edema. Neuro: Sedated. A/P Assessment and Plan 1. Acute hypoxemic and hypercapnic respiratory failure. 2. COPD exacerbation. 3. Hypertension 4. Multiple myeloma 5. Anemia 6. GERD Plan Neuro: On Diprivan infusion for sedation and daily sedation vacation. Monitor neuro status closely. On Fentanyl Duragesic patch 50 mcg q 3day. Pulm: Continue with vent support and maintain sats > 92%. Bronchodilators, Symbicort and Spiriva. Will consult pulm -patient is known to Dr. Crow. Continue with IV steroids Solu-Medrol 60 mg IV q.8 Start CPAP trials a giovanna CV: Monitor HR and BP and maintain MAP >65 mmHg. : Monitor renal function Is and Os and electrolyte replacement per protocol. D/C IVF GI: on Protonix 40 mg IV daily. Start tube feeds today if remains intubated. ID: Continue with abx(Aztreonam) and monitor for signs of infections(fever and WBC) nasal washing negative for influenza. Follow up on sputum and urine cxs. Heme: Monitor CBC, oncology is following for multiple myeloma. Endo: SSI with Accu-Chek q. 6-hour for glycemic control GI prophylaxis with Protonix 40 mg daily and DVT prophylaxis with SCDs and Lovenox 40 mg subcu daily. Level 3 Chinedu Yao MD Oct 29, 2016 08:48
[2016-10-29 10:29] LABS: BLOOD GAS BASE EXCESS 1.1 mmol/L (-2-2); BLOOD GAS CARBOXYHEMOGLOBIN 1.2 % (0-4); BLOOD GAS HCO3 24 mmol/L (22-26); BLOOD GAS METHEMOGLOBIN 1.2 % (0-2); BLOOD GAS O2 HGB SATURATION 97 % (90-100); BLOOD GAS OXYGEN CONTENT 15.6 Vol % (12.0-20.0); BLOOD GAS PCO2 33 mmHg (38-42); BLOOD GAS PO2 192 mmHg (61-120); BLOOD GAS TOTAL HGB 11.1 G/DL (12.0-16.0); CRITICAL VALUE NO; OXYGEN DEVICE VENTILATOR; TEMP CORR TO 98.6
[2016-10-29 10:30] LABS: DRAW SITE LT RADIAL; FIO2 40 %; NUMBER OF ARTERIAL PUNCTURES 1; STAT NO; ULNAR PULSE PRESENT; VENT SETTINGS CPAP+5/PS10
[2016-10-29] MEDS ORDERED: MORPHINE SULFATE 4 MG/ML INJ IV PUSH PRN (15:00)
[2016-10-29] MEDS: ENOXAPARIN SODIUM 40 MG/0.4 ML SYRINGE SQ SCH (15:12)
--- NOTE | 2016-10-29 15:43 | PD.ONC.PN ---
Subjective Subjective Remarks extubated and cheerful. back is painful Objective Data Date Time Temp Pulse Resp B/P Pulse Ox O2 Delivery O2 Flow Rate FiO2 10/29/16 12:00 98.9 103 18 147/67 100 10/29/16 12:00 103 10/29/16 10:45 100 Nasal Cannula 2.00 10/29/16 10:45 100 2 10/29/16 10:00 79 10/29/16 09:37 40 10/29/16 09:37 100 40 10/29/16 08:00 98.1 80 20 129/67 100 10/29/16 08:00 80 10/29/16 08:00 40 10/29/16 07:31 100 40 10/29/16 06:00 61 10/29/16 04:00 40 10/29/16 04:00 98.0 63 16 115/63 100 10/29/16 04:00 63 10/29/16 03:42 100 40 10/29/16 02:00 94 10/29/16 00:36 100 40 10/29/16 00:00 97.8 80 16 121/68 99 10/29/16 00:00 80 10/29/16 00:00 40 10/28/16 22:00 83 10/28/16 20:20 100 40 10/28/16 20:00 91 10/28/16 20:00 98.0 91 16 117/68 100 10/28/16 20:00 50 10/28/16 19:04 16 10/28/16 18:00 93 10/28/16 17:40 100 50 10/28/16 16:00 99 10/28/16 16:00 97.9 102 20 126/68 100 10/28/16 15:50 100 100 Result Diagram: 10/29/16 0321 10/29/16 0321 Laboratory Results Laboratory Tests Test 10/28/16 10/29/16 10/29/16 10/29/16 15:55 03:21 09:21 10:24 Nasal Screen MRSA (PCR) NEGATIVE White Blood Count 9.1 TH/MM3 Red Blood Count 4.03 MIL/MM3 Hemoglobin 11.1 GM/DL Hematocrit 32.9 % Mean Corpuscular Volume 81.6 FL Mean Corpuscular Hemoglobin 27.5 PG Mean Corpuscular Hemoglobin 33.7 % Concent Red Cell Distribution Width 17.9 % Platelet Count 134 TH/MM3 Mean Platelet Volume 9.1 FL Neutrophils (%) (Auto) 96.4 % Lymphocytes (%) (Auto) 1.1 % Monocytes (%) (Auto) 2.3 % Eosinophils (%) (Auto) 0.0 % Basophils (%) (Auto) 0.2 % Neutrophils # (Auto) 8.7 TH/MM3 Lymphocytes # (Auto) 0.1 TH/MM3 Monocytes # (Auto) 0.2 TH/MM3 Eosinophils # (Auto) 0.0 TH/MM3 Basophils # (Auto) 0.0 TH/MM3 CBC Comment DIFF FINAL Differential Comment Sodium Level 140 MEQ/L Potassium Level 3.7 MEQ/L Chloride Level 106 MEQ/L Carbon Dioxide Level 27.8 MEQ/L Anion Gap 6 MEQ/L Blood Urea Nitrogen 13 MG/DL Creatinine 0.39 MG/DL Estimat Glomerular Filtration 222 ML/MIN Rate Random Glucose 127 MG/DL Calcium Level 7.7 MG/DL Phosphorus Level 2.1 MG/DL 2.1 MG/DL Magnesium Level 2.1 MG/DL Blood Gas Puncture Site LT RADIAL Blood Gas Patient Temperature 98.6 Blood Gas HCO3 24 mmol/L Blood Gas Base Excess 1.1 mmol/L Blood Gas Oxygen Saturation 97 % Arterial Blood pH 7.48 Arterial Blood Partial 33 mmHg Pressure CO2 Arterial Blood Partial 192 mmHg Pressure O2 Arterial Blood Oxygen Content 15.6 Vol % Arterial Blood 1.2 % Carboxyhemoglobin Arterial Blood Methemoglobin 1.2 % Blood Gas Hemoglobin 11.1 G/DL Oxygen Delivery Device VENTILATOR Blood Gas Ventilator Setting CPAP+5/PS10 Blood Gas Inspired Oxygen 40 % Culture Results Microbiology Date/Time Procedure Status Source Growth 10/28/16 13:45 Urine Culture - Preliminary Resulted Urine Catheterized Urine NO GROWTH IN 24 HOURS. 10/28/16 15:00 Gram Stain - Final Resulted Sputum Endotracheal 10/28/16 15:00 Sputum Culture - Preliminary Resulted Sputum Endotracheal HEAVY GROWTH NORMAL RESPIRATORY MICHAEL... 10/28/16 23:50 Influenza Types A,B Antigen (DAVID) - Final Complete Nasal Washing NEGATIVE FOR FLU A AND B ANTIGEN.... Administered Medications Medications (Trade) Dose Ordered Sig/Mohinder Route PRN Reason Start Time Stop Time Status Last Admin Dose Admin Pantoprazole Sodium (Protonix Inj) 40 mg DAILY IV 10/28/16 14:45 10/29/16 07:42 Enoxaparin Sodium (Lovenox Inj) 40 mg Q24H SQ 10/28/16 14:45 10/29/16 15:12 Miscellaneous Information 1 [id number] XX 10/28/16 14:45 10/28/16 14:45 Chlorhexidine Gluconate (Chlorhexidine 2% Cloth) 3 pack Taper DAILY@04 TOP 10/29/16 04:00 10/25/17 03:59 10/29/16 03:55 Methylprednisolone Sodium Succinate 60 mg 60 mg Q8HR IV PUSH 10/28/16 22:00 10/29/16 15:12 Aztreonam/Sodium Chloride (Azactam Inj/NS Inj) 100 ml @ 200 mls/hr Q8H IV 10/28/16 15:00 10/29/16 15:13 Fentanyl (Duragesic 50 Mcg Patch.72 Hr) 1 patch Q3D TD 10/28/16 17:00 10/28/16 18:04 Objective Remarks GENERAL: gaunt and kyphotic SKIN: Warm and dry. HEAD: Normocephalic. EYES: No scleral icterus. No injection or drainage. NECK: Supple, trachea midline. No JVD or lymphadenopathy. LYMPHATIC: No adenopathy. CARDIOVASCULAR: Regular rate and rhythm without murmurs. RESPIRATORY: Breath sounds equal bilaterally. No accessory muscle use. GASTROINTESTINAL: Abdomen soft, non-tender, nondistended. EXTREMITIES: No cyanosis, or edema. MUSCULOSKELETAL: kyphosis and muscle wasting. NEUROLOGICAL: No obvious focal deficit. Awake, alert, and oriented x3. PSYCHIATRIC: Appropriate mood and affect; insight and judgment normal. Assessment/Plan Assessment 1: myeloma- will resume treatment after discharge 2: will remove Duragesic patch and resume previous pain medicines and pervious laxatives. Eze Potter MD Oct 29, 2016 15:43
--- NOTE | 2016-10-29 16:01 | EKG ---
Date Performed: 10/28/2016 Time Performed: 13:17:58 PTAGE: 66 years EKG: SINUS TACHYCARDIA Baseline artifact Nonspecific atrial abnormality new from the prior delphine ng ABNORMAL ECG NO PREVIOUS TRACING DOCTOR: Geoffrey Lang Interpretating Date/Time 10/29/2016 16:00:11
[2016-10-29] MEDS: HYDROmorphone HCL 4 MG TAB PO PRN (16:43)
[2016-10-29] MEDS ORDERED: PILL SPLITTER OTHER PRN (17:00)
[2016-10-29] MEDS: METHADONE HCL 10 MG TAB PO SCH (17:00)
[2016-10-29] MEDS: DOCUSATE SODIUM 50 MG/SENNA 8.6 MG TAB PO SCH (18:03)
--- NOTE | 2016-10-29 18:51 | PD.CONS ---
HPI Service [facility] Consult Requested By Primary Care Physician Eusebio Griffiths DO Diagnoses: Past Family Social History Allergies: Coded Allergies: Azithromycin (Verified Allergy, Severe, Rash, 10/28/16) Phenergan (Verified Allergy, Severe, ANXIETY, 10/28/16) Augmentin (Verified Adverse Reaction, Severe, ABD PAIN, 10/28/16) IS CURRENTLY TAKING Doxycycline (Verified Adverse Reaction, Mild, ABDOMINAL PAIN, 10/28/16) Levaquin (Verified Adverse Reaction, Mild, BODY ACHES, 10/28/16) patient denies allergy to this medicine and has taken it as recently as April 2015 without adverse reaction. STASTES HE CAN TAKE IT Physical Exam Vital Signs Vital Signs Date Time Temp Pulse Resp B/P Pulse Ox O2 Delivery O2 Flow Rate FiO2 10/29/16 18:00 90 10/29/16 18:00 18 10/29/16 17:43 20 10/29/16 16:00 101 10/29/16 16:00 98.7 101 20 137/67 100 10/29/16 14:00 90 10/29/16 12:00 98.9 103 18 147/67 100 10/29/16 12:00 103 10/29/16 10:45 100 Nasal Cannula 2.00 10/29/16 10:45 100 2 10/29/16 10:00 79 10/29/16 09:37 40 10/29/16 09:37 100 40 10/29/16 08:00 98.1 80 20 129/67 100 10/29/16 08:00 80 10/29/16 08:00 40 10/29/16 07:31 100 40 10/29/16 06:00 61 10/29/16 04:00 40 10/29/16 04:00 98.0 63 16 115/63 100 10/29/16 04:00 63 10/29/16 03:42 100 40 10/29/16 02:00 94 10/29/16 00:36 100 40 10/29/16 00:00 97.8 80 16 121/68 99 10/29/16 00:00 80 10/29/16 00:00 40 10/28/16 22:00 83 10/28/16 20:20 100 40 10/28/16 20:00 91 10/28/16 20:00 98.0 91 16 117/68 100 10/28/16 20:00 50 10/28/16 19:04 16 Laboratory Laboratory Tests Test 10/29/16 10/29/16 10/29/16 03:21 09:21 10:24 White Blood Count 9.1 Red Blood Count 4.03 Hemoglobin 11.1 Hematocrit 32.9 Mean Corpuscular Volume 81.6 Mean Corpuscular Hemoglobin 27.5 Mean Corpuscular Hemoglobin 33.7 Concent Red Cell Distribution Width 17.9 Platelet Count 134 Mean Platelet Volume 9.1 Neutrophils (%) (Auto) 96.4 Lymphocytes (%) (Auto) 1.1 Monocytes (%) (Auto) 2.3 Eosinophils (%) (Auto) 0.0 Basophils (%) (Auto) 0.2 Neutrophils # (Auto) 8.7 Lymphocytes # (Auto) 0.1 Monocytes # (Auto) 0.2 Eosinophils # (Auto) 0.0 Basophils # (Auto) 0.0 CBC Comment DIFF FINAL Differential Comment Sodium Level 140 Potassium Level 3.7 Chloride Level 106 Carbon Dioxide Level 27.8 Anion Gap 6 Blood Urea Nitrogen 13 Creatinine 0.39 Estimat Glomerular Filtration 222 Rate Random Glucose 127 Calcium Level 7.7 Phosphorus Level 2.1 2.1 Magnesium Level 2.1 Blood Gas Puncture Site LT RADIAL Blood Gas Patient Temperature 98.6 Blood Gas HCO3 24 Blood Gas Base Excess 1.1 Blood Gas Oxygen Saturation 97 Arterial Blood pH 7.48 Arterial Blood Partial 33 Pressure CO2 Arterial Blood Partial 192 Pressure O2 Arterial Blood Oxygen Content 15.6 Arterial Blood 1.2 Carboxyhemoglobin Arterial Blood Methemoglobin 1.2 Blood Gas Hemoglobin 11.1 Oxygen Delivery Device VENTILATOR Blood Gas Ventilator Setting CPAP+5/PS10 Blood Gas Inspired Oxygen 40 Date/Time Procedure Status Source Growth 10/28/16 23:50 Influenza Types A,B Antigen (DAVID) - Final Complete Nasal Washing NEGATIVE FOR FLU A AND B ANTIGEN.... 10/28/16 15:00 Gram Stain - Final Resulted Sputum Endotracheal 10/28/16 15:00 Sputum Culture - Preliminary Resulted Sputum Endotracheal HEAVY GROWTH NORMAL RESPIRATORY MICHAEL... 10/28/16 13:45 Urine Culture - Preliminary Resulted Urine Catheterized Urine NO GROWTH IN 24 HOURS. Result Diagram: 10/29/16 0321 10/29/16 0321 A/P Assessment and Plan dictated [id number] cmp in Celine Cordova Oct 29, 2016 18:51
--- NOTE | 2016-10-29 19:36 | MB ---
cc: RADHIKA CAPMOS DATE OF CONSULTATION: . REASON FOR CONSULTATION: Respiratory failure, COPD. HISTORY OF PRESENT ILLNESS: This is a 66-year-old white male with a longstanding history of multiple myeloma on treatment who has been on Revlimid orally. The patient apparently also has chronic bronchitis and emphysema and has a history of smoking for over 40 years. He was brought to the emergency room with history of severe respiratory distress and respiratory failure, and upon arrival he had to be intubated and placed on ventilator support. The chest x-ray following intubation showed diffuse emphysematous changes. The patient had to be sedated and paralyzed and following a mechanical ventilator support, he did improve significantly and now has been extubated. The patient is on O2 via nasal cannula at 3 liters. He is coughing up some whitish mucus. No hemoptysis. No fevers or chills. PAST MEDICAL HISTORY: His past history includes: 1. Multiple myeloma. 2. History of COPD and emphysema. 3. History of Gastroesophageal reflux. 4. Anemia of chronic disease. 5. Hypertension. PAST SURGICAL HISTORY: 1. Kyphoplasty. Infusaport placement. ALLERGIES: 1. LEVAQUIN. 2. AUGMENTIN. 3. Z-PACK. 4. PHENERGAN. MEDICATIONS: Medication list was reviewed from the chart. He is presently also on: 1. Symbicort. 2. Decadron. 3. Omeprazole. REVIEW OF SYSTEMS: The patient has weakness, cough, wheezing, orthopnea. There is no leg swelling but has bruising of his extremities. He denies any nausea or vomiting or GI bleed. He does have joint pains and back pain. FAMILY HISTORY: Noncontributory. PHYSICAL EXAMINATION: GENERAL: This is a thinly built middle-aged man who is alert and pale. He has no clubbing. There is mild peripheral edema. No lymphadenopathy. VITAL SIGNS: Blood pressure is 105/60, pulse is 88, respirations 22, temperature 98.2. HEAD, EYES, EARS, NOSE, THROAT: Head normocephalic. The pupils are reactive and equal. Tongue is moist. Throat is mildly injected. NECK: The neck is supple. No bruits. No thyroid enlargement. CHEST: Distant breath sounds with expiratory wheezes bilaterally. Prolonged expirations. HEART: Heart sounds are irregular S1-S2. No murmur. ABDOMEN: Abdomen soft and protuberant. No masses. No organomegaly or tenderness. The bowel sounds are active. EXTREMITIES: Without edema. Mild varicosities. Ecchymotic areas of the extremities. Peripheral pulses are diminished. NEUROLOGIC: Reflexes are 1+. There are no gross motor deficits. Cranial nerves are grossly intact. IMPRESSION: 1. Hypercapnic respiratory failure, resolved. 2. COPD with emphysema and acute exacerbation of chronic bronchitis. 3. History of multiple myeloma. 4. Hypertension 5. Anemia of chronic disease. PLAN: 1. The patient will be maintained on O2 at 3 liters. 2. nebulized DuoNeb solution added four times a day. 3. continue Symbicort 160 / 4.5 two puffs twice a day. 4. Antibiotic coverage including aztreonam will be continued. 5. CBC repeated in the a.m. as well as sputum culture and Gram stain. 6. An oncology consultation has been requested and he will be continued on his multiple myeloma medications. 7. A follow up chest x-ray to be done this week. Thank you Maximilian for this consultation. MD DANIEL Ashley/JOESPH /6:53 PM /7:29 PM
[2016-10-30] VITALS (12 sets, daily range): BP systolic 96–155; BP diastolic 57–78; PULSE 64–100; RESP 16–20; TEMP 96.5–98; O2SAT 93–99
[2016-10-30] MEDS: METHADONE HCL 10 MG TAB PO SCH ×3 (00:14→17:39)
[2016-10-30] MEDS: INSULIN NovoLIN REGULAR SUPPLEMENTAL SCALE SQ SCH ×4 (02:45→21:14)
[2016-10-30] MEDS: CHLORHEXIDINE GLUCONATE 2 % 1 PACK (2 CLOTHS) TOP SCH (04:00)
[2016-10-30 04:04] LABS: BASOPHIL % 0.2 % (0.0-2.0); HEMATOCRIT 33.6 % (39.0-51.0); HEMO FLAGS DIFF FINAL; LYMPH % 1.3 % (9.0-44.0); LYMPHOCYTE # 0.1 TH/MM3 (1.0-4.8); MEAN CELL VOLUME 82.7 FL (80.0-100.0); MEAN CORPUSCULAR HEMOGLOBIN 26.7 PG (27.0-34.0); MEAN CORPUSCULAR HGB CONC 32.3 % (32.0-36.0); MONO % 4.7 % (0.0-8.0); NEUT % 93.8 % (16.0-70.0); PLATELET COUNT 125 TH/MM3 (150-450); RED BLOOD COUNT 4.06 MIL/MM3 (4.50-5.90); RED CELL DISTRIBUTION WIDTH 18.2 % (11.6-17.2); WHITE BLOOD COUNT 9.6 TH/MM3 (4.0-11.0)
[2016-10-30] MEDS: RESP: ALBUTEROL 2.5 MG/IPRATROPIUM 0.5 MG NEB (SCH) INH ×3 (04:15→22:42)
[2016-10-30 04:16] LABS: ALT (GPT) 31 U/L (12-78); ANION GAP 6 MEQ/L (5-15); AST (GOT) 87 U/L (15-37); CHLORIDE 104 MEQ/L (98-107); GLOMERULAR FILTRATION RATE 260 ML/MIN (>89); POTASSIUM 3.3 MEQ/L (3.5-5.1); SODIUM (NA) 141 MEQ/L (136-145)
[2016-10-30 04:22] LABS: ALKALINE PHOSPHATASE 74 U/L (45-117); BLOOD UREA NITROGEN 12 MG/DL (7-18); TOTAL BILIRUBIN ADULT 0.4 MG/DL (0.2-1.0)
[2016-10-30] MEDS: methylPREDNISolone SOD SUCC 125 MG/2 ML VIAL IV PUSH SCH ×3 (06:28→21:15)
[2016-10-30] MEDS: AZTREONAM INJ 1,000 MG in SODIUM CHLORIDE 0.9% INJ 100 ML IV SCH ×3 (06:28→22:58)
--- NOTE | 2016-10-30 07:45 | PD.ONC.PN ---
Subjective Subjective Remarks Mr. Capellan has been extubated, sitting up in bed awake and alert, his memory remains poor but is at baseline. He tells me he feels a great deal better, he tells me he "just could not breathe " and that his found his "lips to have turned blue " before she called 911. He doesn't recall much of what happened afterwards but tells me he was on the ventilator. The patient was on the ventilator for about 24 hours over the course of the weekend, now extubated and breathing much better. He has a history of multiple myeloma for which he had been on single agent Revlimid with a good response. Objective Data Date Time Temp Pulse Resp B/P Pulse Ox O2 Delivery O2 Flow Rate FiO2 10/30/16 06:00 94 10/30/16 04:00 97.9 74 18 131/78 94 10/30/16 04:00 74 10/30/16 02:00 65 10/30/16 01:14 20 10/30/16 00:00 97.8 75 20 137/63 96 10/30/16 00:00 75 10/29/16 22:00 81 10/29/16 20:00 104 10/29/16 20:00 98.5 104 28 136/67 92 10/29/16 19:40 95 10/29/16 18:00 90 10/29/16 17:43 20 10/29/16 16:00 101 10/29/16 16:00 98.7 101 20 137/67 100 10/29/16 14:00 90 10/29/16 12:00 98.9 103 18 147/67 100 10/29/16 12:00 103 10/29/16 10:45 100 Nasal Cannula 2.00 10/29/16 10:45 100 2 10/29/16 10:00 79 10/29/16 09:37 40 10/29/16 09:37 100 40 10/29/16 08:00 98.1 80 20 129/67 100 10/29/16 08:00 80 10/29/16 08:00 40 10/30/16 10/30/16 10/30/16 07:00 15:00 23:00 Intake Total 442 ml Output Total 800 ml Balance -358 ml Result Diagram: 10/30/16 0340 10/30/16 0340 Laboratory Results Laboratory Tests Test 10/29/16 10/29/16 10/30/16 09:21 10:24 03:40 Phosphorus Level 2.1 MG/DL 2.1 MG/DL Blood Gas Puncture Site LT RADIAL Blood Gas Patient Temperature 98.6 Blood Gas HCO3 24 mmol/L Blood Gas Base Excess 1.1 mmol/L Blood Gas Oxygen Saturation 97 % Arterial Blood pH 7.48 Arterial Blood Partial 33 mmHg Pressure CO2 Arterial Blood Partial 192 mmHg Pressure O2 Arterial Blood Oxygen Content 15.6 Vol % Arterial Blood 1.2 % Carboxyhemoglobin Arterial Blood Methemoglobin 1.2 % Blood Gas Hemoglobin 11.1 G/DL Oxygen Delivery Device VENTILATOR Blood Gas Ventilator Setting CPAP+5/PS10 Blood Gas Inspired Oxygen 40 % White Blood Count 9.6 TH/MM3 Red Blood Count 4.06 MIL/MM3 Hemoglobin 10.8 GM/DL Hematocrit 33.6 % Mean Corpuscular Volume 82.7 FL Mean Corpuscular Hemoglobin 26.7 PG Mean Corpuscular Hemoglobin 32.3 % Concent Red Cell Distribution Width 18.2 % Platelet Count 125 TH/MM3 Mean Platelet Volume 8.3 FL Neutrophils (%) (Auto) 93.8 % Lymphocytes (%) (Auto) 1.3 % Monocytes (%) (Auto) 4.7 % Eosinophils (%) (Auto) 0.0 % Basophils (%) (Auto) 0.2 % Neutrophils # (Auto) 9.0 TH/MM3 Lymphocytes # (Auto) 0.1 TH/MM3 Monocytes # (Auto) 0.4 TH/MM3 Eosinophils # (Auto) 0.0 TH/MM3 Basophils # (Auto) 0.0 TH/MM3 CBC Comment DIFF FINAL Differential Comment Sodium Level 141 MEQ/L Potassium Level 3.3 MEQ/L Chloride Level 104 MEQ/L Carbon Dioxide Level 31.0 MEQ/L Anion Gap 6 MEQ/L Blood Urea Nitrogen 12 MG/DL Creatinine 0.34 MG/DL Estimat Glomerular Filtration 260 ML/MIN Rate Random Glucose 119 MG/DL Calcium Level 7.7 MG/DL Total Bilirubin 0.4 MG/DL Aspartate Amino Transf 87 U/L (AST/SGOT) Alanine Aminotransferase 31 U/L (ALT/SGPT) Alkaline Phosphatase 74 U/L Total Protein 5.7 GM/DL Albumin 2.7 GM/DL Culture Results Microbiology Date/Time Procedure Status Source Growth 10/28/16 13:45 Urine Culture - Preliminary Resulted Urine Catheterized Urine NO GROWTH IN 24 HOURS. 10/28/16 15:00 Gram Stain - Final Resulted Sputum Endotracheal 10/28/16 15:00 Sputum Culture - Preliminary Resulted Sputum Endotracheal HEAVY GROWTH NORMAL RESPIRATORY MICHAEL... 10/28/16 23:50 Influenza Types A,B Antigen (DAVID) - Final Complete Nasal Washing NEGATIVE FOR FLU A AND B ANTIGEN.... Administered Medications Medications (Trade) Dose Ordered Sig/Mohinder Route PRN Reason Start Time Stop Time Status Last Admin Dose Admin Pantoprazole Sodium (Protonix Inj) 40 mg DAILY IV 10/28/16 14:45 10/29/16 07:42 Enoxaparin Sodium (Lovenox Inj) 40 mg Q24H SQ 10/28/16 14:45 10/29/16 15:12 Miscellaneous Information 1 [id number] XX 10/28/16 14:45 10/28/16 14:45 Chlorhexidine Gluconate (Chlorhexidine 2% Cloth) 3 pack Taper DAILY@04 TOP 10/29/16 04:00 10/25/17 03:59 10/30/16 04:00 Methylprednisolone Sodium Succinate 60 mg 60 mg Q8HR IV PUSH 10/28/16 22:00 10/30/16 06:28 Aztreonam 1000 mg/ Sodium Chloride 100 ml @ 200 mls/hr Q8H IV 10/28/16 15:00 10/30/16 06:28 Potassium Chloride (KCl 40 Meq Premix Inj) 100 ml @ 25 mls/hr UNSCH PRN IV For Potassium 3.3 - 3.5 mEq/L 10/29/16 08:45 10/30/16 06:27 Methadone HCl (Dolophine) 15 mg Q8H PO 10/29/16 17:00 10/30/16 00:14 Senna/Docusate Sodium (Dea-Colace) 1 tab TID PO 10/29/16 18:00 10/29/16 18:03 Hydromorphone HCl (Dilaudid) 8 mg Q3H PRN PO PAIN GREATER THAN 6 10/29/16 16:00 10/29/16 16:43 Miscellaneous (Pill Splitter) 1 ea UNSCH PRN OTHER SEE LABEL COMMENTS 10/29/16 17:00 10/30/16 00:13 Budesonide/ Formoterol Fumarate (Symbicort 160-4.5 Inh) 2 puff Q12HR INH 10/29/16 21:00 10/29/16 20:34 Objective Remarks GENERAL: Elderly and frail-appearing man, sitting up in bed, no acute distress. Extensive bruising and ecchymotic lesions over his upper extremities. SKIN: Warm and dry. HEAD: Normocephalic. EYES: No scleral icterus. No injection or drainage. NECK: Supple, trachea midline. No JVD or lymphadenopathy. LYMPHATIC: No adenopathy. CARDIOVASCULAR: Regular rate and rhythm without murmurs. RESPIRATORY: Good air movement bilaterally, minimal rhonchi, prolonged expiratory phase. GASTROINTESTINAL: Abdomen soft, non-tender, nondistended. EXTREMITIES: Generally decreased muscle mass and tone, some bruising noted over the upper and lower extremity is. MUSCULOSKELETAL: Decreased muscle mass and tone. NEUROLOGICAL: No obvious focal deficit. Awake, alert, and oriented x3. PSYCHIATRIC: Appropriate mood and affect; insight and judgment normal. Assessment/Plan Assessment Chronic history of multiple myeloma dating back to 2013, he has been on various lines of treatment and most recently has been on single agent Revlimid. He had been on dose of 25 mg daily for 14 days followed by 14 days off. He has been on single agent Revlimid since the summer of 2015 and since then he has been doing relatively well with improvement in his serum light chain levels as well as serum light chain ratio is as well as his overall quantitative immunoglobulins. I have been caring for him in conjunction with the myeloma specialists at the [facility]. The patient does have a history of COPD due to his many years of tobaccoism though he no longer smokes. He presented to the hospital with an acute exacerbation of COPD, he required brief intubation with ventilator support. He is now been extubated and is doing much better from a clinical standpoint. Plan 1. Multiple myeloma: Systemic therapy will remain on hold until his acute issues have resolved. 2. COPD exacerbation: Adequately managed with the interventions rendered including corticosteroid therapy, nebulizers and inhaled corticosteroids. 3. Cytopenias: Are at baseline. Disposition: I would suggest he be started on physical therapy as soon as possible. Also please note the patient has an area on his back which is prone to decubitus ulcers nursing staff please be aware of this area please examine him carefully and treat him accordingly to prevent decubitus ulceration on his skin. Bolivar Hernandez MD Oct 30, 2016 07:45
--- NOTE | 2016-10-30 08:25 | MB ---
cc: BRUNO GUSTAFSON DATE OF CONSULTATION 10/29/2016 DATE OF 1950 REASON FOR CONSULTATION Medical management. HISTORY OF PRESENT ILLNESS This is a pleasant 66-year-old white male who had been in his usual state of health up until yesterday. He had an acute onset of shortness of breath to the point that he felt like he needed to be evaluated in the emergency room. He and his tried his nebulizers and the things he had on an outpatient med basis to stabilize him but continued to feel worse. The patient has a history of severe COPD and chronic cigarette abuse. Therefore, has had issues with shortness of breath and COPD throughout the years. He is not on home O2. He currently has been diagnosed for multiple myeloma and sees Dr. Potter on an outpatient basis. The patient is currently on a treatment regimen. He was brought by EMS for evaluation. In the emergency room he was given Solu-Medrol, three nebulizer treatments and continued to be in severe distress. The patient was ultimately intubated and was taken to the ICU for further management and evaluation. Post extubation chest x-ray shows diffuse emphysema changes without evidence of any acute cardiopulmonary disease. The patient was extubated today. Was on ventilator support for approximately 24 hours. Currently is on O2 at 2 liters, sitting up in the bed and getting ready to eat some solid food. He is alert, appropriate to simple questions and answers but is struggling right now with any history of his other medical comorbidities. The patient has never been intubated before this episode. PAST MEDICAL HISTORY 1. Multiple myeloma. 2. Hypertension. 3. Chronic obstructive pulmonary disease. 4. Exacerbations. 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 6. Anemia. 7. Gastroesophageal reflux disease. 8. Asthma. 9. Anxiety. 10. Arthritis. 11. Degenerative disk disease. PAST SURGICAL HISTORY 1. Right subclavian [id number]. 2. Kyphoplasty. ALLERGIES AUGMENTIN, AZITHROMYCIN, DOXYCYCLINE, LEVAQUIN AND PHENERGAN. MEDICATIONS Reconciled and reported: 1. Zofran. 2. K-Tab. 3. Zometa. 4. Albuterol. 5. Symbicort. 6. Calcium. 7. Robaxin. 8. Amlodipine. 9. Methadone. 10. Gabapentin. 11. Hydromorphone. 12. Dexamethasone. 13. Omeprazole. 14. Spiriva. 15. Senna Plus. SOCIAL HISTORY The patient is currently , lives at home with his . He denies any alcohol use. Long-term cigarette abuse until October 08, 2003. Denies any illicit drug use. FAMILY HISTORY Hyperlipidemia. REVIEW OF SYSTEMS A 10-point review was obtained. Positives noted in HPI which was his severe shortness of breath, hypoxia and the other systems negative or unremarkable. PHYSICAL EXAMINATION VITAL SIGNS: Temperature is 98.7, pulse labile between 79 and 101, respirations 20, blood pressure 137/67, O2 sat 100 on 2 liters nasal cannula. GENERAL: Thin, chronically ill looking white male looks older than his stated age, resting in the bed, alert, cooperative, pleasantly disoriented to history. SKIN: Thin turgor, pale, dry. Multiple purpura and abrasions secondary to bumps and bruises especially on his upper extremities, arm, and some on his lower extremities. HEENT: Atraumatic, normocephalic. Pupils equal, round, reactive to light and accommodation at 2. Mucous membranes dry. Tongue is midline. No exudate. Oral exudate. NECK: Supple. Thin. CARDIOVASCULAR: S1-S2 regular rate and rhythm. Borderline tachycardia at times. No murmurs, rubs or gallops. LUNGS: Decreased breath sounds and low air volumes throughout anteriorly and posteriorly. No wheezes, no rales. He does use his accessory muscles to breathe. His breath sounds are equal, bilateral. ABDOMEN: Flat, soft. Nontender, nondistended. Active bowel sounds. MUSCULOSKELETAL: He can move his extremities with purpose. Generalized weakness in his lower extremities but can overcome resistance. 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 NEUROLOGIC: He is alert, awake, but pleasant confusion to his history. PSYCHIATRIC: Flat mood and affect. Insight limited for short periods of time. DIAGNOSTIC DATA WBC count 9.1, RBC 4.03, hemoglobin 11.1, hematocrit 32.9, platelet count 134. Neutrophils 96.4, lymphocytes 1.1. Chemistry, sodium is 140, potassium 3.7, chloride 106, carbon dioxide 27.8, anion gap 6, BUN 13, creatinine 0.39, glucose 127, calcium 7.7, phosphorus 2.1, magnesium 2.1. Urine is yellow, clear, pH is 5.5, specific gravity 0.015, protein is 30, glucose 70, ketones of 10, trace of occult blood. Negative for nitrites, bilirubin and leukocyte esterase. He is negative for MRSA nasal screen. IMAGING Studies show a chest x-ray to have diffuse emphysema changes without acute cardiopulmonary disease. ASSESSMENT/PLAN 1. Acute respiratory failure status post intubation and extubation. 2. COPD, severe exacerbation with emphysema. 3. Multiple myeloma. 4. Anemia. 5. Gastroesophageal reflux disease. 6. Hypertension. Our plan is to assist in the medical management of this patient. We will monitor his labs and treat any abnormals needed. The patient has SCDs. Lovenox for DVT prophylaxis. Sputum culture is pending. The patient is on school lunch monitor and will need to continue that throughout his hospital stay. Currently on bedrest with neuro checks. PUD prophylaxis with propranolol. Albuterol and DuoNeb treatments. Medical oncology has been consulted for their expert opinion and any additions to his care. Pain management to be monitored per the sign maker and/or his oncologist. We will evaluate labs in the morning and follow any acute needs this patient has. Currently he is full code, full aggressive care. Thank you very much for this consult. Dictated by: JANIS Vizcaino Bruno Gustafson MD JP/RAVI /6:20 PM /8:25 AM Patient seen and examined on the day of admission as above. Above-note was not available before to sign Chart was reviewed on day of admission including but not limited to labs radiological data and medications Discussed with RN and JANIS about plan of care MTDD
[2016-10-30] MEDS: DOCUSATE SODIUM 50 MG/SENNA 8.6 MG TAB PO SCH ×3 (08:43→17:37)
[2016-10-30] MEDS: PANTOPRAZOLE SODIUM 40 MG VIAL IV SCH (08:43)
[2016-10-30] MEDS: TIOTROPIUM BROMIDE 18 MCG INH INH SCH (09:00)
--- NOTE | 2016-10-30 11:59 | HHI.PR ---
Subjective Remarks Is breathing better No pain No nausea vomiting Has some cough with yellowish sputum no fever or chills Improving energy Review of system for 10 point system otherwise unremarkable Objective Objective Results - Vital Signs Date Time Temp Pulse Resp B/P Pulse Ox O2 Delivery O2 Flow Rate FiO2 10/30/16 10:00 82 10/30/16 08:03 98 Nasal Cannula 2.00 10/30/16 08:00 100 10/30/16 08:00 97.9 100 18 155/70 94 10/30/16 06:00 94 10/30/16 04:00 97.9 74 18 131/78 94 10/30/16 04:00 74 10/30/16 02:00 65 10/30/16 01:14 20 10/30/16 00:00 97.8 75 20 137/63 96 10/30/16 00:00 75 10/29/16 22:00 81 10/29/16 20:00 104 10/29/16 20:00 98.5 104 28 136/67 92 10/29/16 19:40 95 10/29/16 18:00 90 10/29/16 17:43 20 10/29/16 16:00 101 10/29/16 16:00 98.7 101 20 137/67 100 10/29/16 14:00 90 10/29/16 12:00 98.9 103 18 147/67 100 10/29/16 12:00 103 I/O 10/29/16 10/29/16 10/29/16 10/30/16 10/30/16 10/30/16 07:00 15:00 23:00 07:00 15:00 23:00 Intake Total 777 ml 551 ml 927 ml 442 ml Output Total 375 ml 1800 ml 1300 ml 800 ml Balance 402 ml -1249 ml -373 ml -358 ml Intake Oral 480 ml 240 ml IV Total 777 ml 551 ml 447 ml 202 ml Output Urine Total 375 ml 1800 ml 1300 ml 800 ml # Voids 6 Result Diagram: 10/30/16 0340 10/30/16 0340 Other Results Laboratory Tests Test 10/30/16 03:40 White Blood Count 9.6 Red Blood Count 4.06 Hemoglobin 10.8 Hematocrit 33.6 Mean Corpuscular Volume 82.7 Mean Corpuscular Hemoglobin 26.7 Mean Corpuscular Hemoglobin 32.3 Concent Red Cell Distribution Width 18.2 Platelet Count 125 Mean Platelet Volume 8.3 Neutrophils (%) (Auto) 93.8 Lymphocytes (%) (Auto) 1.3 Monocytes (%) (Auto) 4.7 Eosinophils (%) (Auto) 0.0 Basophils (%) (Auto) 0.2 Neutrophils # (Auto) 9.0 Lymphocytes # (Auto) 0.1 Monocytes # (Auto) 0.4 Eosinophils # (Auto) 0.0 Basophils # (Auto) 0.0 CBC Comment DIFF FINAL Differential Comment Sodium Level 141 Potassium Level 3.3 Chloride Level 104 Carbon Dioxide Level 31.0 Anion Gap 6 Blood Urea Nitrogen 12 Creatinine 0.34 Estimat Glomerular Filtration 260 Rate Random Glucose 119 Calcium Level 7.7 Phosphorus Level 2.1 Total Bilirubin 0.4 Aspartate Amino Transf 87 (AST/SGOT) Alanine Aminotransferase 31 (ALT/SGPT) Alkaline Phosphatase 74 Total Protein 5.7 Albumin 2.7 Date/Time Procedure Status Source Growth 10/28/16 23:50 Influenza Types A,B Antigen (DAVID) - Final Complete Nasal Washing NEGATIVE FOR FLU A AND B ANTIGEN.... 10/28/16 15:00 Gram Stain - Final Resulted Sputum Endotracheal 10/28/16 15:00 Sputum Culture - Preliminary Resulted Sputum Endotracheal HEAVY GROWTH NORMAL RESPIRATORY MICHAEL 10/28/16 13:45 Urine Culture - Final Complete Urine Catheterized Urine NO GROWTH IN 48 HOURS. Physical Exam Physical Exam GENERAL: Thin, chronically ill looking white male looks older than his stated age, resting in the bed, alert, cooperative, pleasant. SKIN: Thin turgor, pale, dry. Multiple purpura and abrasions secondary to bumps and bruises especially on his upper extremities, arm, and some on his lower extremities. HEENT: Atraumatic, normocephalic. Pupils equal, round, reactive to light and accommodation at 2. Mucous membranes dry. Tongue is midline. No exudate. Oral exudate. NECK: Supple. Thin. CARDIOVASCULAR: S1-S2 regular rate and rhythm. Borderline tachycardia at times. No murmurs, rubs or gallops. LUNGS: Decreased breath sounds and low air volumes throughout anteriorly and posteriorly. No wheezes, no rales. He does use his accessory muscles to breathe. His breath sounds are equal, bilateral. ABDOMEN: Flat, soft. Nontender, nondistended. Active bowel sounds. MUSCULOSKELETAL: He can move his extremities with purpose. Generalized weakness in his lower extremities but can overcome resistance. 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 NEUROLOGIC: He is alert, awake, but pleasant confusion to his history. PSYCHIATRIC: Flat mood and affect. A/P Assessment and Plan 1. Acute respiratory failure status post intubation and extubation. On nasal cannula oxygen. Appreciate pulmonary input. Continue breathing treatment and steroid 2. COPD, severe exacerbation with emphysema. 3. Multiple myeloma. Appreciate oncology input 4. Anemia. Stable H&H 5. Gastroesophageal reflux disease. PPI 6. Hypertension. Stable Continue antibiotic as patient has a yellow sputum likely bronchitis Labs reviewed Replacement of potassium and phosphorus Slightly low platelet count will monitor Lovenox for DVT prophylaxis. PUD prophylaxis Increase activity Is stable to transfer to floor Discussed with patient and at bedside Discussed with Jason Iqbal MD Oct 30, 2016 11:59
[2016-10-30] MEDS: PANTOPRAZOLE SOD 40 MG DELAYED RELEASE TAB PO SCH (12:00)
[2016-10-30] MEDS: BUDESONIDE-FORMOTEROL 160/4.5 MCG INHALER INH SCH ×3 (12:19→21:16)
[2016-10-30] MEDS: HYDROmorphone HCL 4 MG TAB PO PRN (14:47)
[2016-10-30] MEDS: ENOXAPARIN SODIUM 40 MG/0.4 ML SYRINGE SQ SCH (14:48)
[2016-10-31] VITALS (11 sets, daily range): BP systolic 133–150; BP diastolic 67–89; PULSE 64–94; RESP 16–20; TEMP 97.1–97.9; O2SAT 94–97
[2016-10-31] MEDS ORDERED: ONDANSETRON HCL 4 MG/2 ML VIAL IV PUSH PRN (01:00)
[2016-10-31] MEDS: METHADONE HCL 10 MG TAB PO SCH ×3 (01:04→17:23)
[2016-10-31] MEDS: CHLORHEXIDINE GLUCONATE 2 % 1 PACK (2 CLOTHS) TOP SCH (04:00)
[2016-10-31] MEDS: INSULIN NovoLIN REGULAR SUPPLEMENTAL SCALE SQ SCH ×4 (06:04→20:45)
[2016-10-31] MEDS: methylPREDNISolone SOD SUCC 125 MG/2 ML VIAL IV PUSH SCH (06:33)
[2016-10-31] MEDS: AZTREONAM INJ 1,000 MG in SODIUM CHLORIDE 0.9% INJ 100 ML IV SCH ×3 (06:34→22:52)
[2016-10-31 06:56] LABS: HEMATOCRIT 35.9 % (39.0-51.0); MEAN CELL VOLUME 83.6 FL (80.0-100.0); MEAN CORPUSCULAR HEMOGLOBIN 26.6 PG (27.0-34.0); MEAN CORPUSCULAR HGB CONC 31.8 % (32.0-36.0); PLATELET COUNT 117 TH/MM3 (150-450); RED CELL DISTRIBUTION WIDTH 18.4 % (11.6-17.2); REVIEW FLAG FINAL; WHITE BLOOD COUNT 9.6 TH/MM3 (4.0-11.0)
[2016-10-31 07:00] LABS: BICARBONATE 32.2 MEQ/L (21.0-32.0); MAGNESIUM 2.3 MG/DL (1.5-2.5); POTASSIUM 3.6 MEQ/L (3.5-5.1)
[2016-10-31] MEDS: BUDESONIDE-FORMOTEROL 160/4.5 MCG INHALER INH SCH ×4 (09:00→21:54)
[2016-10-31] MEDS: PANTOPRAZOLE SODIUM 40 MG VIAL IV SCH (09:00)
[2016-10-31] MEDS: RESP: ALBUTEROL 2.5 MG/IPRATROPIUM 0.5 MG NEB (SCH) INH ×3 (09:23→21:19)
[2016-10-31] MEDS: TIOTROPIUM BROMIDE 18 MCG INH INH SCH (09:58)
[2016-10-31] MEDS: PANTOPRAZOLE SOD 40 MG DELAYED RELEASE TAB PO SCH (09:58)
[2016-10-31] MEDS: DOCUSATE SODIUM 50 MG/SENNA 8.6 MG TAB PO SCH ×3 (09:59→17:24)
[2016-10-31] MEDS: HYDROmorphone HCL 4 MG TAB PO PRN ×3 (12:39→22:48)
--- NOTE | 2016-10-31 13:37 | HHI.PR ---
Subjective Remarks Is breathing better than yesterday No pain No nausea vomiting Has some cough with yellowish sputum no fever or chills Improving energy Review of system for 10 point system otherwise unremarkable Objective Objective Results - Vital Signs Date Time Temp Pulse Resp B/P Pulse Ox O2 Delivery O2 Flow Rate FiO2 10/31/16 12:00 97.9 80 18 133/71 94 10/31/16 09:25 95 21 10/31/16 08:00 97.1 64 18 134/74 96 10/31/16 04:30 97.6 66 16 136/68 94 10/31/16 02:04 18 10/31/16 00:00 97.5 88 18 150/67 95 10/30/16 22:42 93 10/30/16 20:00 96.6 64 16 136/76 96 10/30/16 16:00 96.5 75 18 124/65 99 10/30/16 14:00 82 I/O 10/30/16 10/30/16 10/30/16 10/31/16 10/31/16 10/31/16 07:00 15:00 23:00 07:00 15:00 23:00 Intake Total 442 ml 569 ml 480 ml 240 ml Output Total 800 ml 850 ml Balance -358 ml -281 ml 480 ml 240 ml Intake Oral 240 ml 380 ml 480 ml 240 ml IV Total 202 ml 189 ml Output Urine Total 800 ml 850 ml # Voids 4 5 4 Result Diagram: 10/31/16 0605 10/31/16 0605 Other Results Laboratory Tests Test 10/31/16 06:05 White Blood Count 9.6 Red Blood Count 4.30 Hemoglobin 11.4 Hematocrit 35.9 Mean Corpuscular Volume 83.6 Mean Corpuscular Hemoglobin 26.6 Mean Corpuscular Hemoglobin 31.8 Concent Red Cell Distribution Width 18.4 Platelet Count 117 Mean Platelet Volume 8.7 Sodium Level 144 Potassium Level 3.6 Chloride Level 107 Carbon Dioxide Level 32.2 Anion Gap 5 Blood Urea Nitrogen 19 Creatinine 0.40 Estimat Glomerular Filtration 215 Rate Random Glucose 114 Calcium Level 7.9 Phosphorus Level 2.5 Magnesium Level 2.3 Date/Time Procedure Status Source Growth 10/28/16 23:50 Influenza Types A,B Antigen (DAVID) - Final Complete Nasal Washing NEGATIVE FOR FLU A AND B ANTIGEN.... 10/28/16 15:00 Gram Stain - Final Complete Sputum Endotracheal 10/28/16 15:00 Sputum Culture - Final Complete Sputum Endotracheal HEAVY GROWTH NORMAL RESPIRATORY MICHAEL 10/28/16 13:45 Urine Culture - Final Complete Urine Catheterized Urine NO GROWTH IN 48 HOURS. Physical Exam Physical Exam GENERAL: Thin, chronically ill looking white male looks older than his stated age, resting in the bed, alert, cooperative, pleasant. SKIN: Thin turgor, pale, dry. Multiple purpura and abrasions secondary to bumps and bruises especially on his upper extremities, arm, and some on his lower extremities. HEENT: Atraumatic, normocephalic. Pupils equal, round, reactive to light and accommodation at 2. Mucous membranes dry. Tongue is midline. No exudate. Oral exudate. NECK: Supple. Thin. CARDIOVASCULAR: S1-S2 regular rate and rhythm. Borderline tachycardia at times. No murmurs, rubs or gallops. LUNGS: Decreased breath sounds and low air volumes throughout anteriorly and posteriorly. No wheezes, no rales. He does use his accessory muscles to breathe. His breath sounds are equal, bilateral. ABDOMEN: Flat, soft. Nontender, nondistended. Active bowel sounds. MUSCULOSKELETAL: He can move his extremities with purpose. Generalized weakness in his lower extremities but can overcome resistance. 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 NEUROLOGIC: He is alert, awake, but pleasant confusion to his history. PSYCHIATRIC: Flat mood and affect. A/P Assessment and Plan 1. Acute respiratory failure status post intubation and extubation. On nasal cannula oxygen. Appreciate pulmonary input. Continue breathing treatment and steroid 2. COPD, severe exacerbation with emphysema. 3. Multiple myeloma. Appreciate oncology input 4. Anemia. Stable H&H 5. Gastroesophageal reflux disease. PPI 6. Hypertension. Stable Continue antibiotic as patient has a yellow sputum likely bronchitis Labs reviewed Within normal limits potassium and phosphorus Slightly low platelet count will monitor Lovenox for DVT prophylaxis. PUD prophylaxis Increase activity Discussed with patient Discussed with Jason Iqbal MD Oct 31, 2016 13:37
[2016-10-31] MEDS: ENOXAPARIN SODIUM 40 MG/0.4 ML SYRINGE SQ SCH (14:40)
[2016-10-31] MEDS ORDERED: REMOVE OLD DURAGESIC (FENTANYL) PATCH TD SCH (17:00)
--- NOTE | 2016-10-31 18:37 | PD.ONC.PN ---
Subjective Subjective Remarks Patient sitting up in bed watching television, appears to be no acute distress. He is awake, alert and oriented 3. Tells me he had a pulmonary function test earlier today. He was told by the physicians he will likely be discharged home tomorrow. Objective Data Date Time Temp Pulse Resp B/P Pulse Ox O2 Delivery O2 Flow Rate FiO2 10/31/16 16:09 94 21 10/31/16 16:00 97.3 91 20 145/89 97 10/31/16 12:00 97.9 80 18 133/71 94 10/31/16 10:33 85 10/31/16 09:25 95 21 10/31/16 08:00 97.1 64 18 134/74 96 10/31/16 04:30 97.6 66 16 136/68 94 10/31/16 02:04 18 10/31/16 00:00 97.5 88 18 150/67 95 10/30/16 22:42 93 10/30/16 20:00 96.6 64 16 136/76 96 10/31/16 10/31/16 10/31/16 07:00 15:00 23:00 Intake Total 240 ml 115 ml Balance 240 ml 115 ml Result Diagram: 10/31/16 0605 10/31/16 0605 Laboratory Results Laboratory Tests Test 10/31/16 06:05 White Blood Count 9.6 TH/MM3 Red Blood Count 4.30 MIL/MM3 Hemoglobin 11.4 GM/DL Hematocrit 35.9 % Mean Corpuscular Volume 83.6 FL Mean Corpuscular Hemoglobin 26.6 PG Mean Corpuscular Hemoglobin 31.8 % Concent Red Cell Distribution Width 18.4 % Platelet Count 117 TH/MM3 Mean Platelet Volume 8.7 FL Sodium Level 144 MEQ/L Potassium Level 3.6 MEQ/L Chloride Level 107 MEQ/L Carbon Dioxide Level 32.2 MEQ/L Anion Gap 5 MEQ/L Blood Urea Nitrogen 19 MG/DL Creatinine 0.40 MG/DL Estimat Glomerular Filtration 215 ML/MIN Rate Random Glucose 114 MG/DL Calcium Level 7.9 MG/DL Phosphorus Level 2.5 MG/DL Magnesium Level 2.3 MG/DL Culture Results Microbiology Date/Time Procedure Status Source Growth 10/28/16 23:50 Influenza Types A,B Antigen (DAVID) - Final Complete Nasal Washing NEGATIVE FOR FLU A AND B ANTIGEN.... Administered Medications Medications (Trade) Dose Ordered Sig/Mohinder Route PRN Reason Start Time Stop Time Status Last Admin Dose Admin Pantoprazole Sodium (Protonix Inj) 40 mg DAILY IV 10/28/16 14:45 10/30/16 08:43 Enoxaparin Sodium (Lovenox Inj) 40 mg Q24H SQ 10/28/16 14:45 10/31/16 14:40 Miscellaneous Information 1 Q361D XX 10/28/16 14:45 10/28/16 14:45 Chlorhexidine Gluconate 3 pack 3 pack Taper DAILY@04 TOP 10/29/16 04:00 10/25/17 03:59 10/30/16 04:00 Aztreonam/Sodium Chloride (Azactam Inj/NS Inj) 100 ml @ 200 mls/hr Q8H IV 10/28/16 15:00 11/01/16 07:00 10/31/16 14:40 Methadone HCl (Dolophine) 15 mg Q8H PO 10/29/16 17:00 10/31/16 17:23 Senna/Docusate Sodium (Dea-Colace) 1 tab TID PO 10/29/16 18:00 10/31/16 17:24 Hydromorphone HCl (Dilaudid) 8 mg Q3H PRN PO PAIN GREATER THAN 6 10/29/16 16:00 10/31/16 17:25 Miscellaneous (Pill Splitter) 1 ea UNSCH PRN OTHER SEE LABEL COMMENTS 10/29/16 17:00 10/30/16 00:13 Budesonide/ Formoterol Fumarate (Symbicort 160-4.5 Inh) 2 puff Q12HR INH 10/29/16 21:00 10/31/16 09:59 Pantoprazole Sodium (Protonix) 40 mg DAILY PO 10/30/16 12:00 10/31/16 09:58 Ondansetron HCl (Zofran Inj) 4 mg Q4H PRN IV PUSH N/V 10/31/16 01:00 10/31/16 01:09 Objective Remarks GENERAL: Elderly and frail-appearing man, sitting up in bed, no acute distress. Extensive bruising and ecchymotic lesions over his upper extremities. SKIN: Warm and dry. HEAD: Normocephalic. EYES: No scleral icterus. No injection or drainage. NECK: Supple, trachea midline. No JVD or lymphadenopathy. LYMPHATIC: No adenopathy. CARDIOVASCULAR: Regular rate and rhythm without murmurs. RESPIRATORY: Good air movement bilaterally, minimal rhonchi, prolonged expiratory phase. GASTROINTESTINAL: Abdomen soft, non-tender, nondistended. EXTREMITIES: Generally decreased muscle mass and tone, some bruising noted over the upper and lower extremity is. MUSCULOSKELETAL: Decreased muscle mass and tone. NEUROLOGICAL: No obvious focal deficit. Awake, alert, and oriented x3. PSYCHIATRIC: Appropriate mood and affect; insight and judgment normal. Assessment/Plan Assessment Chronic history of multiple myeloma dating back to 2013, he has been on various lines of treatment and most recently has been on single agent Revlimid. He had been on dose of 25 mg daily for 14 days followed by 14 days off. He has been on single agent Revlimid since the summer of 2015 and since then he has been doing relatively well with improvement in his serum light chain levels as well as serum light chain ratio is as well as his overall quantitative immunoglobulins. I have been caring for him in conjunction with the myeloma specialists at the [facility]. The patient does have a history of COPD due to his many years of tobaccoism though he no longer smokes. He presented to the hospital with an acute exacerbation of COPD, he required brief intubation with ventilator support. He is now been extubated and is doing much better from a clinical standpoint. Plan 1. Multiple myeloma: Systemic therapy will remain on hold until his acute issues have resolved. 2. COPD exacerbation: Adequately managed with the interventions rendered including corticosteroid therapy, nebulizers and inhaled corticosteroids. 3. Cytopenias: Are at baseline. Disposition: Cleared for discharge from hematology standpoint. He appears to be doing remarkably well given the severity of his respiratory distress at time of presentation. Bolivar Hernandez MD Oct 31, 2016 18:37
[2016-10-31] MEDS: predniSONE 20 MG TAB PO SCH (21:54)
[2016-10-31] MEDS: Infusaport/Implanted VAD PRN NS Lock Flush IVF ×2 (22:53→23:59)
[2016-11-01] VITALS: BP 125/69; PULSE 75; RESP 16; TEMP 96; O2SAT 94
[2016-11-01] MEDS: METHADONE HCL 10 MG TAB PO SCH ×2 (01:08→09:35)
[2016-11-01] MEDS: INSULIN NovoLIN REGULAR SUPPLEMENTAL SCALE SQ SCH ×2 (02:50→08:45)
[2016-11-01] MEDS: CHLORHEXIDINE GLUCONATE 2 % 1 PACK (2 CLOTHS) TOP SCH (02:51)
[2016-11-01] MEDS: RESP: ALBUTEROL 2.5 MG/IPRATROPIUM 0.5 MG NEB (SCH) INH ×2 (03:31→09:55)
[2016-11-01 03:33] VITALS: O2SAT 94
[2016-11-01 04:00] VITALS: BP 151/77; PULSE 71; RESP 16; TEMP 96; O2SAT 100
[2016-11-01] MEDS: AZTREONAM INJ 1,000 MG in SODIUM CHLORIDE 0.9% INJ 100 ML IV SCH (06:40)
[2016-11-01] MEDS: Infusaport/Implanted VAD PRN NS Lock Flush IVF (06:42)
[2016-11-01 08:00] VITALS: BP 153/85; PULSE 78; RESP 20; TEMP 96.4; O2SAT 98
[2016-11-01] MEDS: TIOTROPIUM BROMIDE 18 MCG INH INH SCH (09:00)
[2016-11-01] MEDS: PANTOPRAZOLE SODIUM 40 MG VIAL IV SCH (09:00)
[2016-11-01] MEDS: BUDESONIDE-FORMOTEROL 160/4.5 MCG INHALER INH SCH ×2 (09:00)
[2016-11-01] MEDS: HYDROmorphone HCL 4 MG TAB PO PRN (09:34)
[2016-11-01] MEDS: predniSONE 20 MG TAB PO SCH (09:35)
[2016-11-01] MEDS: DOCUSATE SODIUM 50 MG/SENNA 8.6 MG TAB PO SCH (09:35)
[2016-11-01] MEDS: PANTOPRAZOLE SOD 40 MG DELAYED RELEASE TAB PO SCH (09:35)
[2016-11-01 10:05] VITALS: O2SAT 95
--- NOTE | 2016-11-01 10:45 | HHI.PR ---
Subjective Remarks Is breathing good No pain No nausea vomiting Has some cough with yellowish sputum no fever or chills Improving energy Review of system for 10 point system otherwise unremarkable Objective Objective Results - Vital Signs Date Time Temp Pulse Resp B/P Pulse Ox O2 Delivery O2 Flow Rate FiO2 11/01/16 08:00 96.4 78 20 153/85 98 11/01/16 08:00 96.4 78 20 153/85 98 11/01/16 04:00 96.0 71 16 151/77 100 11/01/16 03:33 94 21 11/01/16 00:00 96.0 75 16 125/69 94 10/31/16 20:09 75 10/31/16 20:00 97.1 77 16 146/75 96 10/31/16 18:46 94 10/31/16 16:09 94 21 10/31/16 16:00 97.3 91 20 145/89 97 10/31/16 12:00 97.9 80 18 133/71 94 I/O 10/31/16 10/31/16 10/31/16 11/01/16 11/01/16 11/01/16 07:00 15:00 23:00 07:00 15:00 23:00 Intake Total 240 ml 475 ml 250 ml Balance 240 ml 475 ml 250 ml Intake Oral 240 ml 360 ml 250 ml IV Total 115 ml # Voids 4 3 3 # Bowel Movements 0 0 Result Diagram: 10/31/1660410/31/16604 Other Results Date/Time Procedure Status Source Growth 10/28/16 23:50 Influenza Types A,B Antigen (DAVID) - Final Complete Nasal Washing NEGATIVE FOR FLU A AND B ANTIGEN.... 10/28/16 15:00 Gram Stain - Final Complete Sputum Endotracheal 10/28/16 15:00 Sputum Culture - Final Complete Sputum Endotracheal HEAVY GROWTH NORMAL RESPIRATORY MICHAEL 10/28/16 13:45 Urine Culture - Final Complete Urine Catheterized Urine NO GROWTH IN 48 HOURS. Physical Exam Physical Exam GENERAL: Thin, chronically ill looking white male looks older than his stated age, resting in the bed, alert, cooperative, pleasant. SKIN: Thin turgor, pale, dry. Multiple purpura and abrasions secondary to bumps and bruises especially on his upper extremities, arm, and some on his lower extremities. HEENT: Atraumatic, normocephalic. Pupils equal, round, reactive to light and accommodation at 2. Mucous membranes dry. Tongue is midline. No exudate. Oral exudate. NECK: Supple. Thin. CARDIOVASCULAR: S1-S2 regular rate and rhythm. Borderline tachycardia at times. No murmurs, rubs or gallops. LUNGS: Decreased breath sounds bibasally. No wheezes, no rales. He doesn't use his accessory muscles to breathe. His breath sounds are equal, bilateral. ABDOMEN: Flat, soft. Nontender, nondistended. Active bowel sounds. MUSCULOSKELETAL: He can move his extremities with purpose. Generalized weakness in his lower extremities but can overcome resistance. Equal hand access developer. NEUROLOGIC: He is alert, awake, but pleasant confusion to his history. PSYCHIATRIC: Flat mood and affect. A/P Assessment and Plan 1. Acute respiratory failure status post intubation and extubation. On nasal cannula oxygen. Appreciate pulmonary input. On breathing treatment and steroid 2. COPD, severe exacerbation with emphysema. 3. Multiple myeloma. Appreciate oncology input 4. Anemia. Stable H&H 5. Gastroesophageal reflux disease. PPI 6. Hypertension. Stable On antibiotic as patient has a yellow sputum likely bronchitis Labs reviewed Within normal limits potassium and phosphorus PUD prophylaxis Tolerating Increase activity Discussed with patient Discussed with RN Plan for discharge today Jason Gustafson MD Nov 01, 2016 10:44
[2016-11-01] MEDS ORDERED: PRED20 PO (10:49)
--- NOTE | 2016-11-01 10:52 | HHI.DS ---
Discharge Summary Admission Date Oct 28, 2016 at 14:20 Admitting Diagnosis acute resp failure from COPD (1) Chronic respiratory failure Diagnosis: Principal (2) Chronic pain Diagnosis: Principal (3) Multiple myeloma Diagnosis: Principal (4) COPD exacerbation Diagnosis: Principal (5) Acute respiratory failure with hypercapnia Diagnosis: Principal Brief History Patient was admitted because of the respiratory failure. He was short of breath. Patient was intubated and admitted to ICU. Patient was extubated once better. Patient was monitored closely. Patient was seen and followed by critical care. And also seen and followed by pulmonary. Because of his multiple myeloma patient was seen and followed by oncologist. Patient was improving. Now is stable and good condition. Plan to discharge him home. In the meantime patient was on antibiotic. He'll be discharged on a steroid by mouth. For further details please see chart. CBC/BMP: 10/31/16 0605 10/31/16 0605 Significant Findings Laboratory Tests Test 10/30/16 10/31/16 03:40 06:05 Red Blood Count 4.06 MIL/MM3 4.30 MIL/MM3 (4.50-5.90) (4.50-5.90) Hemoglobin 10.8 GM/DL 11.4 GM/DL (13.0-17.0) (13.0-17.0) Hematocrit 33.6 % 35.9 % (39.0-51.0) (39.0-51.0) Mean Corpuscular Hemoglobin 26.7 PG 26.6 PG (27.0-34.0) (27.0-34.0) Red Cell Distribution Width 18.2 % 18.4 % (11.6-17.2) (11.6-17.2) Platelet Count 125 TH/MM3 117 TH/MM3 (150-450) (150-450) Neutrophils (%) (Auto) 93.8 % (16.0-70.0) Lymphocytes (%) (Auto) 1.3 % (9.0-44.0) Neutrophils # (Auto) 9.0 TH/MM3 (1.8-7.7) Lymphocytes # (Auto) 0.1 TH/MM3 (1.0-4.8) Potassium Level 3.3 MEQ/L (3.5-5.1) Creatinine 0.34 MG/DL 0.40 MG/DL (0.60-1.30) (0.60-1.30) Random Glucose 119 MG/DL 114 MG/DL (74-106) (74-106) Calcium Level 7.7 MG/DL 7.9 MG/DL (8.5-10.1) (8.5-10.1) Phosphorus Level 2.1 MG/DL (2.5-4.9) Aspartate Amino Transf 87 U/L (15-37) (AST/SGOT) Total Protein 5.7 GM/DL (6.4-8.2) Albumin 2.7 GM/DL (3.4-5.0) Mean Corpuscular Hemoglobin 31.8 % Concent (32.0-36.0) Carbon Dioxide Level 32.2 MEQ/L (21.0-32.0) Blood Urea Nitrogen 19 MG/DL (7-18) Pt Condition on Discharge: Good Discharge Instructions DIET: Follow Instructions for: Heart Healthy Diet Activities you can perform: Weight Bearing as Emelina Follow up Referrals: Oncology - 1 Week PCP Follow-up - 1 Week Pulmonology - 2 Weeks New Medications: Prednisone (Prednisone) 20 Mg Tab 20 MG PO BID inflammation #12 TAB Continued Medications: Albuterol Neb (Albuterol Neb) 2.5 Mg/3 Ml Neb 2.5 MG NEB QID NEB Breathing Treatment #60 Ref 0 NEBULE Amlodipine (Amlodipine) 5 Mg Tab 5 MG PO DAILY Blood Pressure Management #30 Ref 0 TAB Budesonide-Formoterol Inh (Symbicort Inh) 160-4.5 Mcg/Act Aero 2 PUFF INH Q12HR #1 Ref 0 INHALER Dexamethasone (Dexamethasone) 4 Mg Tab 20 MG PO every mon Ref 0 TAB Gabapentin (Gabapentin) 600 Mg Tab 600 MG PO TID #90 Ref 0 TAB Hydromorphone (Hydromorphone) 8 Mg Tab 8 MG PO Q6H PRN Pain Management Ref 0 TAB Ipratropium-Albuterol Neb (Duoneb) 0.5-2.5 Mg/3 Ml Neb 1 NEBULE INH Q4HR NEB SHORTNESS OF BREATH #120 Ref 0 NEBULE Methadone (Methadone) 10 Mg Tab 10 MG PO TID Ref 0 TAB Methocarbamol (Robaxin) 750 Mg Tab 750 MG PO TID Muscle Spasm Ref 0 TAB Omeprazole (Omeprazole) 20 Mg Tab 20 MG PO BID #30 Ref 0 TAB Ondansetron (Zofran) 4 Mg Tab 4 MG PO Q6HR PRN NAUSEA OR VOMITING Ref 0 TAB Oyster Shell (Calcium) 500 Mg Tab 1000 MG PO DAILY Potassium Chloride ER (K-Tab) 20 Meq Tab 20 MEQ PO DAILY Electrolyte Replacement #30 Ref 0 TAB Sennosides-Docusate Sodium (Senna Plus 8.6-50 mg) 1 Tab Tab 1 TAB PO BID Tiotropium Inh (Spiriva Handihaler) 18 Mcg Cap 18 MCG INH DAILY 1 capsule = 18 mcg COPD #30 Ref 0 CAP Zoledronic Acid Inj (Zometa Inj) 4 Mg/100 Ml Inj 4 MG IV MONTHLY #1 Ref 0 BAG ([revlimid]) 25 MG PO 2 WEEKS ON 2 WKS OFF Jason Gustafson MD Nov 01, 2016 10:52
[2016-11-01 12:00] VITALS: BP 137/74; PULSE 76; RESP 20; TEMP 97.4; O2SAT 98
--- NOTE | 2016-11-08 08:15 | RSPPFT ---
DATE OF PROCEDURE: 10/31/16 COMMENTS: VOLUMES DYNAMIC: FVC low normal; FEV1 moderately reduced. FLOWS: FEV1% moderately reduced; FEF 25-75 severely reduced. IMPRESSION: Moderately severe obstructive ventilatory defect with no significant improvement post-bronchodilator.
== END 2016-11-01 13:45 | disposition home or self-care (01) | DRG 208 ==
LOC: NEPE 13:06 → NEDA 14:20 → HIMN 15:40 → HOCB 10-30 14:06
PROVIDERS: ADMIT Internal Medicine Critical Care Medicine; ATTEND Internal Medicine Critical Care Medicine
PROC: 0BH17EZ Insertion of Endotracheal Airway into Trachea, Via Natural or Artificial Opening (ICD-10-PCS; principal; 2016-10-28)
PROC: 5A1945Z Respiratory Ventilation, 24-96 Consecutive Hours (ICD-10-PCS; 2016-10-28)
PROC: 0T9B70Z Drainage of Bladder with Drainage Device, Via Natural or Artificial Opening (ICD-10-PCS; 2016-10-28)
DX: J96.22 Acute and chronic respiratory failure with hypercapnia (principal); C90.00 Multiple myeloma not having achieved remission; J44.1 Chronic obstructive pulmonary disease with (acute) exacerbation; I10 Essential (primary) hypertension; G89.29 Other chronic pain; E78.00 Pure hypercholesterolemia, unspecified; J45.909 Unspecified asthma, uncomplicated; D63.8 Anemia in other chronic diseases classified elsewhere; K21.9 Gastro-esophageal reflux disease without esophagitis; Z72.0 Tobacco use
CPT/HCPCS: 31500; 36600; 51702; 71010; 80048; 80053; 81001; 82805; 82948; 83735; 84100; 85025; 85027; 87070; 87086; 87205; 87641; 87804; 93005; 94002; 94003; 94060; 94150; 94640; 94664; 96374; C9113; J0330; J1642; J1650; J2405; J2930; J3480; J7030; J7050; J7512

== ENCOUNTER 2016-11-09 14:03 | Emergency (ER) | payer MEDICARE, OTHER ==
[~2016-11-09] VITALS: Ht 157.5 cm; Wt 51.3 kg
[~2016-11-09 14:03] MED LIST changes: +PRED20 PO
[2016-11-09 14:06] VITALS: BP 146/79; PULSE 85; RESP 16; TEMP 98; O2SAT 94
--- NOTE | 2016-11-09 14:33 | PD ---
HPI Chief Complaint: Edema Time Seen by Provider: 14:32 Travel History International Travel<30 days: No Contact w/Intl Traveler<30days: No Traveled to known affect area: No History of Present Illness HPI 66-year-old male came to the emergency room with history of bilateral pedal edema. Patient says this is been going on for past couple days. Patient was discharged from the hospital a week ago after being admitted for respiratory distress and intubation. His is here and said it was secondary to COPD exacerbation. There is no leg pain. No history of fever or chills. No history of trauma. History of chest pain or shortness of breath. His vital signs are relatively stable. [facility] Past Medical History Narrative Medical List of his past medical, surgical, social and family history is reviewed from the nursing note. Hx Anticoagulant Therapy: Yes (ASPIRIN OCC.) Anemia: Yes Arthritis: Yes Asthma: Yes Anxiety: Yes Cancer: Yes (multiple myeloma) Cardiovascular Problems: Yes (HTN, CHOL) High Cholesterol: Yes (BORDERLINE) Chemotherapy: Yes (ORAL CHEMO) Chest Pain: Yes COPD: Yes Cerebrovascular Accident: No Diabetes: No Diminished Hearing: No Endocrine: No GERD: Yes Genitourinary: No Herniated Disk: Yes ("COLLAPSED" DISCS) Hypertension: Yes Immune Disorder: No Implanted Vascular Access Dvce: Yes Musculoskeletal: Yes (KYPHOPLASTY: SPINE DUE TO COLLAPSED DISCS AND FRACTURES) Neurologic: No Reproductive: No Respiratory: Yes (COPD) Immunizations Current: Yes Pneumonia: Yes Radiation Therapy: Yes (HX OF ) Shingles: Yes Past Surgical History Body Medical Devices: RIGHT SUBCLAVIAN INFUSAPORT: JUNE 2014 Other Surgery: Yes (infusaport r chest) Family History Family Hypercholesterolemia: Yes (SISTER, BROTHER, MOTHER) Social History Alcohol Use: No Tobacco Use: No (QUIT 2003: October smoked cigs 3 ppd) Substance Use: No Allergies-Medications (Allergen,Severity, Reaction): Coded Allergies: Azithromycin (Verified Allergy, Severe, Rash, 11/09/16) Phenergan (Verified Allergy, Severe, ANXIETY, 11/09/16) Augmentin (Verified Adverse Reaction, Severe, ABD PAIN, 11/09/16) IS CURRENTLY TAKING Doxycycline (Verified Adverse Reaction, Mild, ABDOMINAL PAIN, 11/09/16) Levaquin (Verified Adverse Reaction, Mild, BODY ACHES, 4/6/17) patient denies allergy to this medicine and has taken it as recently as April 2015 without adverse reaction. STASTES HE CAN TAKE IT Comments List of his allergies reviewed from the nursing note. Reported Meds & Prescriptions Reported Meds & Active Scripts Active Prednisone 20 Mg Tab 20 Mg PO BID Duoneb (Ipratropium-Albuterol Neb) 0.5-2.5 Mg/3 Ml Neb 1 Nebule INH Q4HR NEB Reported Aspirin 81 Mg Chew 81 Mg CHEW DAILY Zofran (Ondansetron HCl) 4 Mg Tab 4 Mg PO Q6HR PRN K-Tab (Potassium Chloride) 20 Meq Tab 20 Meq PO DAILY Zometa Inj (Zoledronic Acid) 4 Mg/100 Ml Inj 4 Mg IV MONTHLY Albuterol Neb (Albuterol Sulfate) 2.5 Mg/3 Ml Neb 2.5 Mg NEB QID NEB Symbicort Inh (Budesonide/Formoterol Fumarate) 160-4.5 Mcg/Act Aero 2 Puff INH Q12HR Calcium (Oyster Shell) 500 Mg Tab 1,000 Mg PO DAILY Robaxin (Methocarbamol) 750 Mg Tab 750 Mg PO TID Amlodipine (Amlodipine Besylate) 5 Mg Tab 5 Mg PO DAILY Methadone (Methadone HCl) 10 Mg Tab 10 Mg PO TID Gabapentin 600 Mg Tab 600 Mg PO TID Hydromorphone (Hydromorphone HCl) 8 Mg Tab 8 Mg PO Q6H PRN Dexamethasone 4 Mg Tab 20 Mg PO EVERY MON Omeprazole 20 Mg Tab 20 Mg PO BID Spiriva Handihaler (Tiotropium Inh) 18 Mcg Cap 18 Mcg INH DAILY 1 capsule = 18 mcg Senna Plus 8.6-50 mg (Sennosides-Docusate Sodium) 1 Tab Tab 1 Tab PO BID [revlimid] 25 Mg PO 2 WEEKS ON 2 WKS OFF Narrative Medication List of his medications reviewed from the nursing. Review of Systems Except as stated in HPI: all other systems reviewed are Neg Physical Exam Narrative GENERAL: Awake, alert, no obvious distress SKIN: Focused skin assessment warm/dry. HEAD: Atraumatic. Normocephalic. EYES: Pupils equal and round. No scleral icterus. No injection or drainage. ENT: No nasal bleeding or discharge. Mucous membranes pink and moist. NECK: Trachea midline. No JVD. CARDIOVASCULAR: Regular rate and rhythm. No murmur appreciated. RESPIRATORY: No accessory muscle use. Clear to auscultation. Breath sounds equal bilaterally. GASTROINTESTINAL: Abdomen soft, non-tender, nondistended. Hepatic and splenic margins not palpable. MUSCULOSKELETAL: No obvious deformities. No clubbing. No cyanosis. 2+ bilateral pedal edema NEUROLOGICAL: Awake and alert. No obvious cranial nerve deficits. Motor grossly within normal limits. Normal speech. PSYCHIATRIC: Appropriate mood and affect; insight and judgment normal. Data Data Last Documented VS Vital Signs Date Time Temp Pulse Resp B/P Pulse Ox O2 Delivery O2 Flow Rate FiO2 11/09/16 16:48 94 Room Air 11/09/16 14:06 98.0 85 16 146/79 Orders Electrocardiogram (11/09/16 14:38) Basic Metabolic Panel (Bmp) (11/09/16 14:38) B-Type Natriuretic Peptide (11/09/16 14:38) Complete Blood Count With Diff (11/09/16 14:38) Magnesium (Mg) (11/09/16 14:38) Prothrombin Time / Inr (Pt) (11/09/16 14:38) Troponin I (11/09/16 14:38) Ecg Monitoring (11/09/16 14:38) Bilateral Bp Monitoring (11/09/16 14:38) Iv Access Insert/Monitor (11/09/16 14:38) Oximetry (11/09/16 14:38) Oxygen Administration (11/09/16 14:38) Sodium Chloride 0.9% Flush (Ns Flush) (11/09/16 14:45) Potassium Chloride Eff (K-Lyte Cl Eff) (11/09/16 15:45) Heparin Central Flush (Heparin Central F (11/09/16 16:30) Labs Laboratory Tests Test 11/09/16 15:15 White Blood Count 7.6 TH/MM3 Red Blood Count 4.37 MIL/MM3 Hemoglobin 11.6 GM/DL Hematocrit 36.4 % Mean Corpuscular Volume 83.3 FL Mean Corpuscular Hemoglobin 26.5 PG Mean Corpuscular Hemoglobin 31.8 % Concent Red Cell Distribution Width 18.6 % Platelet Count 261 TH/MM3 Mean Platelet Volume 7.5 FL Neutrophils (%) (Auto) 79.0 % Lymphocytes (%) (Auto) 8.7 % Monocytes (%) (Auto) 9.3 % Eosinophils (%) (Auto) 2.1 % Basophils (%) (Auto) 0.9 % Neutrophils # (Auto) 5.9 TH/MM3 Lymphocytes # (Auto) 0.7 TH/MM3 Monocytes # (Auto) 0.7 TH/MM3 Eosinophils # (Auto) 0.2 TH/MM3 Basophils # (Auto) 0.1 TH/MM3 CBC Comment DIFF FINAL Differential Comment Prothrombin Time 10.4 SEC Prothromb Time International 0.9 RATIO Ratio Sodium Level 142 MEQ/L Potassium Level 3.3 MEQ/L Chloride Level 101 MEQ/L Carbon Dioxide Level 32.9 MEQ/L Anion Gap 8 MEQ/L Blood Urea Nitrogen 12 MG/DL Creatinine 0.45 MG/DL Estimat Glomerular Filtration 188 ML/MIN Rate Random Glucose 78 MG/DL Calcium Level 8.1 MG/DL Magnesium Level 1.6 MG/DL Troponin I LESS THAN 0.02 NG/ML B-Type Natriuretic Peptide 28 PG/ML MDM Medical Decision Making Medical Screen Exam Complete: Yes Emergency Medical Condition: Yes Medical Record Reviewed: Yes Interpretation(s) Twelve-lead EKG was reviewed by me. Normal sinus rhythm, left axis deviation, multiple PVCs. Heart rate of 82 bpm. Differential Diagnosis CHF, venous insufficiency Narrative Course 2:52 PM awaiting for the blood test results to come back. 3:50 PM case was signed over to the oncoming ER physician. Pending labs. Procedures EKG Prior to Arrival: Leticia Pandya MD Nov 09, 2016 14:33
[2016-11-09] MEDS ORDERED: SODIUM CHLORIDE 0.9% FLUSH 10 ML FLUSH IVF PRN (14:45)
[2016-11-09] MEDS ORDERED: ASPI81CH CHEW (14:54)
[2016-11-09 15:31] LABS: AUTOMATED NEUTROPHIL # 5.9 TH/MM3 (1.8-7.7); BASOPHIL # 0.1 TH/MM3 (0-0.2); BASOPHIL % 0.9 % (0.0-2.0); EOSINOPHIL # 0.2 TH/MM3 (0-0.4); EOSINOPHIL % 2.1 % (0.0-4.0); HEMATOCRIT 36.4 % (39.0-51.0); LYMPH % 8.7 % (9.0-44.0); LYMPHOCYTE # 0.7 TH/MM3 (1.0-4.8); MEAN CELL VOLUME 83.3 FL (80.0-100.0); MEAN CORPUSCULAR HEMOGLOBIN 26.5 PG (27.0-34.0); MEAN CORPUSCULAR HGB CONC 31.8 % (32.0-36.0); MONO % 9.3 % (0.0-8.0); PLATELET COUNT 261 TH/MM3 (150-450); RED BLOOD COUNT 4.37 MIL/MM3 (4.50-5.90); RED CELL DISTRIBUTION WIDTH 18.6 % (11.6-17.2); WHITE BLOOD COUNT 7.6 TH/MM3 (4.0-11.0)
[2016-11-09 15:41] LABS: CHLORIDE 101 MEQ/L (98-107); POTASSIUM 3.3 MEQ/L (3.5-5.1); SODIUM (NA) 142 MEQ/L (136-145)
[2016-11-09 15:44] LABS: ANION GAP 8 MEQ/L (5-15); BICARBONATE 32.9 MEQ/L (21.0-32.0); BLOOD UREA NITROGEN 12 MG/DL (7-18); MAGNESIUM 1.6 MG/DL (1.5-2.5)
[2016-11-09 15:45] LABS: INTERNATIONAL NORMALIZED RATIO 0.9 RATIO; PROTHROMBIN TIME - PATIENT 10.4 SEC (9.8-11.6)
[2016-11-09] MEDS ORDERED: POTASSIUM CHLORIDE 25 MEQ EFFERVESCENT TAB PO ONE (15:45)
[2016-11-09 15:48] LABS: GLOMERULAR FILTRATION RATE 188 ML/MIN (>89)
[2016-11-09 16:13] LABS: HEMO FLAGS DIFF FINAL
--- NOTE | 2016-11-09 16:26 | PD ---
Physical Exam Date Seen by Provider: Nov 09, 2016 Time Seen by Provider: 16:23 Narrative This 66-year-old male had presented with complaint of bilateral ankle and foot edema. He was hospitalized last week with respiratory failure related to COPD. He has a history of multiple myeloma which he sees Dr. Salas and is on multiple medications. He does not take a diuretic but he does take potassium supplements. He has had problems with low potassium in the past. Seen by Dr. Marie who ordered blood work. His BNP is normal. His potassium is 3.3. He has received a dose of potassium here. He also had a low albumin was in the hospital last week. I suspect his edema is multifactorial and the potassium may be playing a role. I recommended he keep his feet elevated, avoid salt, use stockings. I will not order diuretic at this time as she is on multiple medications already and that may be drug interaction Data Data Last Documented VS Vital Signs Date Time Temp Pulse Resp B/P Pulse Ox O2 Delivery O2 Flow Rate FiO2 11/09/16 14:06 98.0 85 16 146/79 94 Orders Electrocardiogram (11/09/16 14:38) Basic Metabolic Panel (Bmp) (11/09/16 14:38) B-Type Natriuretic Peptide (11/09/16 14:38) Complete Blood Count With Diff (11/09/16 14:38) Magnesium (Mg) (11/09/16 14:38) Prothrombin Time / Inr (Pt) (11/09/16 14:38) Troponin I (11/09/16 14:38) Ecg Monitoring (11/09/16 14:38) Bilateral Bp Monitoring (11/09/16 14:38) Iv Access Insert/Monitor (11/09/16 14:38) Oximetry (11/09/16 14:38) Oxygen Administration (11/09/16 14:38) Sodium Chloride 0.9% Flush (Ns Flush) (11/09/16 14:45) Potassium Chloride Eff (K-Lyte Cl Eff) (11/09/16 15:45) Labs Laboratory Tests Test 11/09/16 15:15 White Blood Count 7.6 TH/MM3 Red Blood Count 4.37 MIL/MM3 Hemoglobin 11.6 GM/DL Hematocrit 36.4 % Mean Corpuscular Volume 83.3 FL Mean Corpuscular Hemoglobin 26.5 PG Mean Corpuscular Hemoglobin 31.8 % Concent Red Cell Distribution Width 18.6 % Platelet Count 261 TH/MM3 Mean Platelet Volume 7.5 FL Neutrophils (%) (Auto) 79.0 % Lymphocytes (%) (Auto) 8.7 % Monocytes (%) (Auto) 9.3 % Eosinophils (%) (Auto) 2.1 % Basophils (%) (Auto) 0.9 % Neutrophils # (Auto) 5.9 TH/MM3 Lymphocytes # (Auto) 0.7 TH/MM3 Monocytes # (Auto) 0.7 TH/MM3 Eosinophils # (Auto) 0.2 TH/MM3 Basophils # (Auto) 0.1 TH/MM3 CBC Comment DIFF FINAL Differential Comment Prothrombin Time 10.4 SEC Prothromb Time International 0.9 RATIO Ratio Sodium Level 142 MEQ/L Potassium Level 3.3 MEQ/L Chloride Level 101 MEQ/L Carbon Dioxide Level 32.9 MEQ/L Anion Gap 8 MEQ/L Blood Urea Nitrogen 12 MG/DL Creatinine 0.45 MG/DL Estimat Glomerular Filtration 188 ML/MIN Rate Random Glucose 78 MG/DL Calcium Level 8.1 MG/DL Magnesium Level 1.6 MG/DL Troponin I LESS THAN 0.02 NG/ML B-Type Natriuretic Peptide 28 PG/ML [facility] Medical Record Reviewed: Yes Supervised Visit with PORTIA: No Differential Diagnosis Differential includes hypoalbuminemia, CHF, right heart failure, Narrative Course Potassium is 3.3. This will be supplemented. His BNP is normal. I will recommend that he keep his legs elevated. Consideration was given to diuretics but he is on multiple medications. I recommended that he increase his potassium to twice daily for the next few days Diagnosis Primary Impression: Hypokalemia Additional Impression: Ankle edema, bilateral Additional Instruction: Avoid salt in the diet, keep her legs elevated, use support stockings Disposition: 01 DISCHARGE HOME Condition: Stable Bryan Lynch MD Nov 09, 2016 16:26
[2016-11-09 16:48] VITALS: O2SAT 94
--- NOTE | 2016-11-10 13:32 | EKG ---
Date Performed: 11/09/2016 Time Performed: 14:46:12 PTAGE: 66 years EKG: Sinus rhythm with frequent PVCs with PAC(s) Possible left anterior fascicular block Septal T wave changes are non specific Compared to prior tracing no significant change Abnormal ECG PREVIOUS TRACING : 10/28/2016 13.17 DOCTOR: Tae Deutsch Interpretating Date/Time 11/10/2016 13:31:48
== END 2016-11-09 16:54 | disposition home or self-care (01) ==
LOC: PHED 14:03
DX: E87.6 Hypokalemia (principal); R60.0 Localized edema; I10 Essential (primary) hypertension; R94.31 Abnormal electrocardiogram [ECG] [EKG]; C90.00 Multiple myeloma not having achieved remission; Z86.2 Personal history of diseases of the blood and blood-forming organs and certain disorders involving the immune mechanism; Z87.39 Personal history of other diseases of the musculoskeletal system and connective tissue; Z87.09 Personal history of other diseases of the respiratory system; Z86.59 Personal history of other mental and behavioral disorders; Z86.79 Personal history of other diseases of the circulatory system; Z87.19 Personal history of other diseases of the digestive system; Z86.69 Personal history of other diseases of the nervous system and sense organs; Z87.891 Personal history of nicotine dependence
CPT/HCPCS: 80048; 83735; 83880; 84484; 85025; 85610; 93005; 99284; J1642

== ENCOUNTER 2016-11-20 10:25 | Observation (INO) | payer MEDICARE, OTHER ==
[2016-11-20] VITALS (8 sets, daily range): BP systolic 116–154; BP diastolic 65–88; PULSE 62–128; RESP 18–28; TEMP 97.6–99; O2SAT 95–99
[~2016-11-20] VITALS: Ht 157.5 cm; Wt 50.0 kg
[~2016-11-20 10:25] MED LIST changes: +ASPI81CH CHEW
--- NOTE | 2016-11-20 10:53 | PD ---
HPI Chief Complaint: Respiratory Distress Time Seen by Provider: 10:46 Travel History International Travel<30 days: No Contact w/Intl Traveler<30days: No Traveled to known affect area: No History of Present Illness HPI This is a 66-year-old male who presents to the emergency department with a history of multiple myeloma and COPD with increasing shortness of breath it's been progressive over the past 2 days, described as constant, moderate severity associated with a nonproductive cough but no fevers or chills. He denies any associated chest pain. He says it feels similar to his COPD exacerbations. He completed prednisone 3 days ago. He was recently hospitalized and intubated in the intensive care unit due to respiratory failure. He follows with Dr. swain. [facility] Past Medical History Hx Anticoagulant Therapy: Yes (ASPIRIN OCC.) Anemia: Yes Arthritis: Yes Asthma: Yes Anxiety: Yes Cancer: Yes (multiple myeloma) Cardiovascular Problems: Yes (HTN, CHOL) High Cholesterol: Yes (BORDERLINE) Chemotherapy: Yes Chest Pain: Yes COPD: Yes Cerebrovascular Accident: No Diabetes: No Diminished Hearing: No Endocrine: No GERD: Yes Genitourinary: No Herniated Disk: Yes ("COLLAPSED" DISCS) Hypertension: Yes Immune Disorder: No Implanted Vascular Access Dvce: Yes Musculoskeletal: Yes (KYPHOPLASTY: SPINE DUE TO COLLAPSED DISCS AND FRACTURES) Neurologic: No Reproductive: No Respiratory: Yes (COPD) Immunizations Current: Yes Pneumonia: Yes Radiation Therapy: Yes (HX OF ) Shingles: Yes Past Surgical History Body Medical Devices: RIGHT SUBCLAVIAN INFUSAPORT: JUNE 2014 Other Surgery: Yes (infusaport r chest) Family History Family Hypercholesterolemia: Yes (SISTER, BROTHER, MOTHER) Social History Alcohol Use: No Tobacco Use: No (QUIT 2003: October smoked cigs 3 ppd) Substance Use: No Allergies-Medications (Allergen,Severity, Reaction): Coded Allergies: Azithromycin (Verified Allergy, Severe, Rash, 11/20/16) Phenergan (Verified Allergy, Severe, ANXIETY, 11/20/16) Augmentin (Verified Adverse Reaction, Severe, ABD PAIN, 11/20/16) IS CURRENTLY TAKING Doxycycline (Verified Adverse Reaction, Mild, ABDOMINAL PAIN, 11/20/16) Levaquin (Verified Adverse Reaction, Mild, BODY ACHES, 11/20/16) patient denies allergy to this medicine and has taken it as recently as April 2015 without adverse reaction. STASTES HE CAN TAKE IT Reported Meds & Prescriptions Reported Meds & Active Scripts Active Prednisone 20 Mg Tab 20 Mg PO BID Duoneb (Ipratropium-Albuterol Neb) 0.5-2.5 Mg/3 Ml Neb 1 Nebule INH Q4HR NEB Reported Aspirin 81 Mg Chew 81 Mg CHEW DAILY Zofran (Ondansetron HCl) 4 Mg Tab 4 Mg PO Q6HR PRN K-Tab (Potassium Chloride) 20 Meq Tab 20 Meq PO DAILY Zometa Inj (Zoledronic Acid) 4 Mg/100 Ml Inj 4 Mg IV MONTHLY Albuterol Neb (Albuterol Sulfate) 2.5 Mg/3 Ml Neb 2.5 Mg NEB QID NEB Symbicort Inh (Budesonide/Formoterol Fumarate) 160-4.5 Mcg/Act Aero 2 Puff INH Q12HR Calcium (Oyster Shell) 500 Mg Tab 1,000 Mg PO DAILY Robaxin (Methocarbamol) 750 Mg Tab 750 Mg PO TID Amlodipine (Amlodipine Besylate) 5 Mg Tab 5 Mg PO DAILY Methadone (Methadone HCl) 10 Mg Tab 10 Mg PO TID Gabapentin 600 Mg Tab 600 Mg PO TID Hydromorphone (Hydromorphone HCl) 8 Mg Tab 8 Mg PO Q6H PRN Dexamethasone 4 Mg Tab 20 Mg PO EVERY MON Omeprazole 20 Mg Tab 20 Mg PO BID Spiriva Handihaler (Tiotropium Inh) 18 Mcg Cap 18 Mcg INH DAILY 1 capsule = 18 mcg Senna Plus 8.6-50 mg (Sennosides-Docusate Sodium) 1 Tab Tab 1 Tab PO BID [revlimid] 25 Mg PO 2 WEEKS ON 2 WKS OFF Review of Systems Except as stated in HPI: all other systems reviewed are Neg Physical Exam Narrative GENERAL: Thin and frail male in moderate respiratory distress SKIN: Focused skin assessment warm and dry. HEAD: Atraumatic. Normocephalic. EYES: Pupils equal and round. No injection or drainage. ENT: Moist mucous membranes NECK: Trachea midline. CARDIOVASCULAR: Tachycardic. No murmur appreciated. RESPIRATORY: Tachypneic with accessory muscle use, prolonged expiratory phase, poor movement bilaterally GASTROINTESTINAL: Abdomen soft, non-tender, nondistended. MUSCULOSKELETAL: No obvious deformities. NEUROLOGICAL: Awake and alert. No obvious cranial nerve deficits. Moving all extremities. PSYCHIATRIC: Appropriate mood and affect; insight and judgment normal. Data Data Last Documented VS Vital Signs Date Time Temp Pulse Resp B/P Pulse Ox O2 Delivery O2 Flow Rate FiO2 11/20/16 11:33 22 96 Room Air 11/20/16 11:33 15 11/20/16 10:58 21 11/20/16 10:29 97.6 108 154/88 Orders Complete Blood Count With Diff (11/20/16 10:50) Comprehensive Metabolic Panel (11/20/16 10:50) B-Type Natriuretic Peptide (11/20/16 10:50) Iv Access Insert/Monitor (11/20/16 10:50) Electrocardiogram (11/20/16 10:50) Ecg Monitoring (11/20/16 10:50) Oximetry (11/20/16 10:50) Oxygen Administration (11/20/16 10:50) Chest, Single Ap (11/20/16 10:50) Sodium Chloride 0.9% Flush (Ns Flush) (11/20/16 11:00) Methylprednisolone So Succ Inj (Solumedr (11/20/16 11:00) Albuterol-Ipratropium Neb (Duoneb Neb) (11/20/16 11:00) Ct Pulmonary Angiogram (11/20/16 ) Iohexol 350 Inj (Omnipaque 350 Inj) (11/20/16 13:16) Labs Laboratory Tests Test 11/20/16 11:02 White Blood Count 13.6 TH/MM3 Red Blood Count 4.37 MIL/MM3 Hemoglobin 12.0 GM/DL Hematocrit 36.8 % Mean Corpuscular Volume 84.4 FL Mean Corpuscular Hemoglobin 27.4 PG Mean Corpuscular Hemoglobin 32.5 % Concent Red Cell Distribution Width 19.2 % Platelet Count 174 TH/MM3 Mean Platelet Volume 8.7 FL Neutrophils (%) (Auto) 93.7 % Lymphocytes (%) (Auto) 1.4 % Monocytes (%) (Auto) 2.5 % Eosinophils (%) (Auto) 2.0 % Basophils (%) (Auto) 0.4 % Neutrophils # (Auto) 12.7 TH/MM3 Lymphocytes # (Auto) 0.2 TH/MM3 Monocytes # (Auto) 0.3 TH/MM3 Eosinophils # (Auto) 0.3 TH/MM3 Basophils # (Auto) 0.1 TH/MM3 CBC Comment DIFF FINAL Differential Comment Sodium Level 140 MEQ/L Potassium Level 3.7 MEQ/L Chloride Level 105 MEQ/L Carbon Dioxide Level 29.5 MEQ/L Anion Gap 6 MEQ/L Blood Urea Nitrogen 12 MG/DL Creatinine 0.55 MG/DL Estimat Glomerular Filtration 149 ML/MIN Rate Random Glucose 105 MG/DL Calcium Level 8.3 MG/DL Total Bilirubin 0.4 MG/DL Aspartate Amino Transf 11 U/L (AST/SGOT) Alanine Aminotransferase 21 U/L (ALT/SGPT) Alkaline Phosphatase 98 U/L B-Type Natriuretic Peptide 23 PG/ML Total Protein 6.5 GM/DL Albumin 3.0 GM/DL MDM Medical Decision Making Medical Screen Exam Complete: Yes Emergency Medical Condition: Yes Interpretation(s) EKG: Sinus tachycardia Leukocytosis Electrolytes are reassuring BNP is 23 CT pulmonary angiogram: No PE Last 24 hours Impressions Chest X-Ray 11/20/16 1050 Signed Impressions: Service Date/Time: Sunday, November 20, 2016 10:57 - CONCLUSION: 1. Stable nodular density within the left upper lung field. CT of the chest may be helpful for further evaluation of this nodule and can be performed as an outpatient if clinically indicated. 2. Degenerative changes and scoliosis of the thoracolumbar spine. Andrea Juarez MD Differential Diagnosis COPD exacerbation, pneumonia, congestive heart failure, pulmonary embolism Narrative Course This is a 66-year-old male who presents to the emergency department with increasing shortness of breath over the past 2 days in the setting of completing a prednisone taper. He was recently intubated in the setting of hypercarbic respiratory failure. He was placed in a monitor and an IV was established. He was given serial DuoNeb's and Solu-Medrol. Labs are obtained which are reassuring including a normal BNP. He does have a mild leukocytosis which may be in the setting of recently completing prednisone. Chest x-ray was negative for pneumonia. CT pulmonary angiogram was obtained given the patient has very poor air movement and minimal findings on exam, and has risk factors for PE. This was reassuring. Patient will be placed in observation for serial bronchodilator treatments and pulmonary consultation. I was going to send him home but he stood up to use the restroom and became acutely dyspneic. I don't think he's safe for outpatient management at this time. Diagnosis Primary Impression: COPD exacerbation Admitting Information Admitting Physician Requests: Observation Nilsa Andrew MD Nov 20, 2016 10:53
[2016-11-20] MEDS: RESP: ALBUTEROL 2.5 MG/IPRATROPIUM 0.5 MG NEB (SCH) INH (10:57)
[2016-11-20] MEDS ORDERED: SODIUM CHLORIDE 0.9% FLUSH 10 ML FLUSH IVF PRN ×2 (11:00→16:00)
[2016-11-20] MEDS ORDERED: methylPREDNISolone SOD SUCC 125 MG/2 ML VIAL IVP ONE (11:00)
[2016-11-20 11:19] LABS: AUTOMATED NEUTROPHIL # 12.7 TH/MM3 (1.8-7.7); BASOPHIL # 0.1 TH/MM3 (0-0.2); BASOPHIL % 0.4 % (0.0-2.0); EOSINOPHIL # 0.3 TH/MM3 (0-0.4); HEMATOCRIT 36.8 % (39.0-51.0); HEMO FLAGS DIFF FINAL; LYMPH % 1.4 % (9.0-44.0); LYMPHOCYTE # 0.2 TH/MM3 (1.0-4.8); MEAN CELL VOLUME 84.4 FL (80.0-100.0); MEAN CORPUSCULAR HEMOGLOBIN 27.4 PG (27.0-34.0); MEAN CORPUSCULAR HGB CONC 32.5 % (32.0-36.0); MONO % 2.5 % (0.0-8.0); NEUT % 93.7 % (16.0-70.0); PLATELET COUNT 174 TH/MM3 (150-450); RED BLOOD COUNT 4.37 MIL/MM3 (4.50-5.90); RED CELL DISTRIBUTION WIDTH 19.2 % (11.6-17.2); WHITE BLOOD COUNT 13.6 TH/MM3 (4.0-11.0)
--- NOTE | 2016-11-20 11:20 | RADRPT ---
EXAM DATE/TIME: 11/20/2016 10:57 [facility] COMPARISON: CT THORAX W CONTRAST, July 27, 2016, 12:55. CHEST SINGLE AP, October 28, 2016, 13:57. INDICATIONS : Short of breath. MEDICAL HISTORY : Chronic obstructive pulmonary disease. Multiple myeloma, getting chemo SURGICAL HISTORY : None. ENCOUNTER: Initial ACUITY: 1 day PAIN SCORE: 0/10 LOCATION: Bilateral chest FINDINGS: A right internal jugular Caypia-X-Ropo has its tip in the superior vena cava. There is no pneumothor ax. There is a nodular density within the left upper lung field which is stable. No acute focal pul monary infiltrate is noted. Degenerative changes and scoliosis of the thoracolumbar spine are noted. CONCLUSION: 1. Stable nodular density within the left upper lung field. CT of the chest may be helpful for furt her evaluation of this nodule and can be performed as an outpatient if clinically indicated. 2. Degenerative changes and scoliosis of the thoracolumbar spine. Andrea Juarez MD on November 20, 2016 at 11:11 Board Certified Radiologist. This report was verified electronically.
[2016-11-20 11:51] LABS: ANION GAP 6 MEQ/L (5-15); AST (GOT) 11 U/L (15-37); BICARBONATE 29.5 MEQ/L (21.0-32.0); BLOOD UREA NITROGEN 12 MG/DL (7-18); CHLORIDE 105 MEQ/L (98-107); GLOMERULAR FILTRATION RATE 149 ML/MIN (>89); POTASSIUM 3.7 MEQ/L (3.5-5.1); SODIUM (NA) 140 MEQ/L (136-145)
[2016-11-20 11:54] LABS: ALKALINE PHOSPHATASE 98 U/L (45-117); ALT (GPT) 21 U/L (12-78); TOTAL BILIRUBIN ADULT 0.4 MG/DL (0.2-1.0)
[2016-11-20] MEDS ORDERED: IOHEXOL 350 MG/ML 10 ML VIAL (for RAD DIAG) IV ONE (13:16)
--- NOTE | 2016-11-20 13:24 | RADRPT ---
EXAM DATE/TIME: 11/20/2016 12:57 [facility] COMPARISON: CHEST SINGLE AP, September 17, 2016, 10:48. CHEST SINGLE AP, October 28, 2016, 13:57. CT THORAX W CONTRAST, July 27, 2016, 12:55. CHEST SINGLE AP, November 20, 2016, 10:57. INDICATIONS : Short of breath. IV CONTRAST: 65 cc Omnipaque 350 (iohexol) IV RADIATION DOSE: CTDIvol (mGy) MEDICAL HISTORY : Cardiovascular disease. Multi myeloma SURGICAL HISTORY : None. ENCOUNTER: Initial ACUITY: 1 day PAIN SCALE: 5/10 LOCATION: chest TECHNIQUE: Volumetric scanning of the chest was performed using a pulmonary embolism protocol MIP images were reconstructed. Using automated exposure control and adjustment of the mA and/or kV acco rding to patient size, radiation dose was kept as low as reasonably achievable to obtain optimal diag nostic quality images. FINDINGS: The lungs are clear without infiltrate, nodule, or mass. Extensive COPD is present with slight scarri ng in the lungs. There is no evidence for lung nodule or mass. There is osteopenia and evidence for v ertebroplasty at multiple levels. Multiple old rib fractures are seen.There is no pleural effusion. No appreciable pathological adenopathy is seen within the mediastinum. The head of the pancreas appea rs atrophic and fatty replaced. IMPRESSION: There is no evidence for PE for technique and there is no evidence for pulmonary n odule. Blair Muñoz MD on November 20, 2016 at 13:18 Board Certified Radiologist. This report was verified electronically.
[2016-11-20] MEDS ORDERED: ONDANSETRON HCL 4 MG/2 ML VIAL IVP PRN (14:00)
[2016-11-20] MEDS ORDERED: SODIUM CHLORIDE 0.9% FLUSH 10 ML FLUSH IV FLUSH PRN (14:00)
[2016-11-20] MEDS ORDERED: ACETAMINOPHEN 325 MG TAB PO PRN (14:00)
[2016-11-20] MEDS ORDERED: RESP: ALBUTEROL 2.5 MG/IPRATROPIUM 0.5 MG NEB (PRN) NEB (14:00)
[2016-11-20] MEDS ORDERED: DEXTROSE 5% IV SCH ×2 (14:00)
[2016-11-20] MEDS ORDERED: SULFAMETHOX IV SCH ×2 (14:00)
[2016-11-20] MEDS ORDERED: NALOXONE HCL 0.4 MG/ML AMP IV PRN (14:00)
[2016-11-20] MEDS ORDERED: WATE IV SCH ×2 (14:00)
[2016-11-20] MEDS ORDERED: TRIMETHOPRIM IV SCH ×2 (14:00)
--- NOTE | 2016-11-20 14:40 | EKG ---
Date Performed: 11/20/2016 Time Performed: 12:01:06 PTAGE: 66 years EKG: SINUS TACHYCARDIA LEFT ANTERIOR FASCICULAR BLOCK NONSPECIFIC ST & T-WAVE ABNORMALITY ABNORM AL ECG COMPARED TO PRIOR ELECTROCARDIOGRAM, Rate has increased and PVCs are no longer present. PREVIOUS TRACING : 11/09/2016 14.46 DOCTOR: Bonilla Patel Interpretating Date/Time 11/20/2016 14:40:12
[2016-11-20] MEDS: HEPARIN SODIUM - SQ 10,000 UNITS/ML VIAL SQ SCH (15:12)
--- NOTE | 2016-11-20 15:40 | HP.UPD ---
H&P Update Note This is 66-year-old gentleman with a history of COPD and multiple myeloma. He had a recent COPD exacerbation. He recently discontinued his prednisone. He since had worsening of his difficulty breathing. He was seen in the emergency department room E 56 by the undersigned today. He has what appears to be COPD exacerbation. He is being admitted for IV steroids, IV antibiotics, nebulizers [id number]. He also has swelling in the lower extremities, etiology unclear. He is being diuresed. 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 Full history and physical to follow Lorenza Vargas MD Nov 20, 2016 15:39
--- NOTE | 2016-11-20 15:41 | HHI.HP ---
[facility] Eusebio Griffiths DO Admission Diagnosis copd exacerbation Diagnoses: Chief Complaint: sob Travel History International Travel<30 Days: No Contact w/Intl Traveler <30 Da: No Traveled to Known Affected Are: No History of Present Illness This is a 66-year-old male with significant past medical history of multiple myeloma, COPD, peripheral edema. Patient presented to the emergency room with complaint of increasing shortness of breath over the last 2 days, has been using nebulizer without any relief. Was recently admitted from 10/28 to 2016 for COPD exacerbation and respiratory failure requiring mechanical intubation. He's had a cough, minimal sputum, no fever, no chills. Has had increased wheezing. Uses oxygen only at night. Completed tapering dose of prednisone 3 days ago. 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 Crow. In the emergency room, patient was evaluated. Patient was noted tachycardic, heart rate 108, respiratory rate 28, blood pressure 154/88. Sats 98% on room air. Temperature 97.6. CBC remarkable for WBC of 13.6. Hemoglobin 12, hematocrit 36.8. BMP essentially unremarkable. B natruretic peptide 23. Imaging studies were completed. Chest x-ray did not reveal any acute findings. CTA of the chest was negative for pulmonary emboli. Patient was going to be discharged, but when he stood up he became extremely dyspneic therefore request was made to admit for observation. Patient now resting comfortably, indicates shortness of breath is slowly improving. Patient was given DuoNeb's and IV steroids. is at bedside providing details previous medical history. Patient is admitted for further evaluation and treatment. Review of Systems Constitutional: DENIES: Diaphoretic episodes, Fatigue, Fever, Weight gain, Weight loss, Chills, Dizziness, Change in appetite, Night Sweats Endocrine: DENIES: Heat/cold intolerance, Polydipsia, Polyuria, Polyphagia Eyes: DENIES: Blurred vision, Diplopia, Eye inflammation, Eye pain, Vision loss , Photosensitivity, Double Vision Ears, nose, mouth, throat: DENIES: Tinnitus, Hearing loss, Vertigo, Nasal discharge, Oral lesions, Throat pain, Hoarseness, Ear Pain, Running Nose, Epistaxis, Sinus Pain, Toothache, Odynophagia Respiratory: COMPLAINS OF: Wheezing, Shortness of breath, DENIES: Apneas, Cough, Snoring, Hemoptysis, Sputum production Cardiovascular: COMPLAINS OF: Dyspnea on Exertion, DENIES: Chest pain, Palpitations, Syncope, PND, Lower Extremity Edema, Orthopnea, Claudication Gastrointestinal: DENIES: Abdominal pain, Black stools, Bloody stools, Constipation, Diarrhea, Nausea, Vomiting, Difficulty Swallowing, Anorexia Genitourinary: DENIES: Sexual dysfunction, Urinary frequency, Urinary incontinence, Urgency, Hematuria, Dysuria, Nocturia, Penile Discharge, Testicular Pain, Testicular Swelling Musculoskeletal: DENIES: Joint pain, Muscle aches, Stiffness, Joint Swelling, Back pain, Neck pain Integumentary: DENIES: Abnormal pigmentation, Nail changes, Pruritus, Rash Hematologic/lymphatic: DENIES: Bruising, Lymphadenopathy Immunologic/allergic: DENIES: Eczema, Urticaria Neurologic: DENIES: Abnormal gait, Headache, Localized weakness, Paresthesias, Seizures, Speech Problems, Tremor, Poor Balance Psychiatric: DENIES: Anxiety, Confusion, Mood changes, Depression, Hallucinations, Agitation, Suicidal Ideation, Homicidal Ideation, Delusions Past Family Social History Past Medical History 1. Diagnosis of IgG kappa light chain myeloma made in July of 2014. The patient has received palliative radiation to the lumbar spine, left sacral iliac area and has received multiple chemotherapies and is currently on a regimen of Revlimid and dexamethasone. 2. Previous history of shingles. 3. Severe COPD 4. Arthritis. 5. Hypertension. 6. jail chronic cigarette abuse, quit in October 2003. 7. Anemia. 8. Gastroesophageal reflux disease. 9. Asthma. 10. Anxiety. 11. Arthritis. 11. Degenerative disk disease. Past Surgical History PAST SURGICAL HISTORY 1. Ojgndp-W-[id number] placement 2. Vertebroplasty August 2014 to T1 3. Vasectomy Reported Medications Reported Meds & Active Scripts Active Duoneb (Ipratropium-Albuterol Neb) 0.5-2.5 Mg/3 Ml Neb 1 Nebule INH Q4HR NEB Reported Aspirin 81 Mg Chew 81 Mg CHEW DAILY Zofran (Ondansetron HCl) 4 Mg Tab 4 Mg PO Q6HR PRN K-Tab (Potassium Chloride) 20 Meq Tab 20 Meq PO DAILY Zometa Inj (Zoledronic Acid) 4 Mg/100 Ml Inj 4 Mg IV MONTHLY Albuterol Neb (Albuterol Sulfate) 2.5 Mg/3 Ml Neb 2.5 Mg NEB QID NEB Symbicort Inh (Budesonide/Formoterol Fumarate) 160-4.5 Mcg/Act Aero 2 Puff INH Q12HR Calcium (Oyster Shell) 500 Mg Tab 1,000 Mg PO DAILY Robaxin (Methocarbamol) 750 Mg Tab 750 Mg PO TID Amlodipine (Amlodipine Besylate) 5 Mg Tab 5 Mg PO DAILY Methadone (Methadone HCl) 10 Mg Tab 10 Mg PO TID Gabapentin 600 Mg Tab 600 Mg PO TID Hydromorphone (Hydromorphone HCl) 8 Mg Tab 8 Mg PO Q6H PRN Dexamethasone 4 Mg Tab 20 Mg PO EVERY MON Omeprazole 20 Mg Tab 20 Mg PO BID Spiriva Handihaler (Tiotropium Inh) 18 Mcg Cap 18 Mcg INH DAILY 1 capsule = 18 mcg Senna Plus 8.6-50 mg (Sennosides-Docusate Sodium) 1 Tab Tab 1 Tab PO BID [revlimid] 25 Mg PO 2 WEEKS ON 2 WKS OFF Allergies: Coded Allergies: Azithromycin (Verified Allergy, Severe, Rash, 11/20/16) Phenergan (Verified Allergy, Severe, ANXIETY, 11/20/16) Augmentin (Verified Adverse Reaction, Severe, ABD PAIN, 11/20/16) IS CURRENTLY TAKING Doxycycline (Verified Adverse Reaction, Mild, ABDOMINAL PAIN, 11/20/16) Levaquin (Verified Adverse Reaction, Mild, BODY ACHES, 11/20/16) patient denies allergy to this medicine and has taken it as recently as April 2015 without adverse reaction. STASTES HE CAN TAKE IT Active Ordered Medications Inpatient Medications Acetaminophen (Tylenol) 650 mg Q4H PRN PO TEMP > 100.4; Start 11/20/16 at 14:00 Albuterol/ Ipratropium (Duoneb Neb) 1 ampule QID NEB NEB ; Start 11/20/16 at 16 :00 Albuterol/ Ipratropium 1 ampule 1 ampule Q4HR NEB PRN NEB SHORTNESS OF BREATH; Start 11/20/16 at 14:00 Ceftriaxone Sodium/Sodium Chloride (Rocephin Inj/NS Inj) 100 ml @ 200 mls/hr Q24H IV ; Start 11/20/16 at 16:00 Heparin Sodium (Porcine) (Heparin Inj) 5,000 units Q12H SQ Last administered on 11/20/16t 15:12; Start 11/20/16 at 15:00 Methylprednisolone Sodium Succinate (SoluMEDROL INJ) 125 mg ONCE ONCE IVP Last administered on 11/20/16t 11:32; Start 11/20/16 at 11:00; Stop 11/20/16 at 11:01; Status DC Methylprednisolone Sodium Succinate 125 mg 125 mg Q6HR IV PUSH ; Start 11/20/16 at 18:00 Naloxone HCl (Narcan Inj) 0.4 mg UNSCH PRN IV SEE LABEL COMMENTS; Start at 14:00 Ondansetron HCl (Zofran Inj) 4 mg Q6H PRN IVP NAUSEA OR VOMITING; Start at 14:00 Sodium Chloride (NS Flush) 2 ml BID IV FLUSH ; Start 11/20/16 at 21:00 Trimethoprim/ Sulfamethoxazole/ Dextrose (Bactrim Inj/D5W 500 ml Inj) 516 ml @ 344 mls/hr Q12H IV ; Start 11/20/16 at 14:00; Stop 11/20/16 at 15:16; Status DC Family History Hyperlipidemia. Social History The patient is currently , lives at home with his . He denies any alcohol use. Long-term cigarette abuse until October 08, 2003. Denies any illicit drug use. Physical Exam Vital Signs Vital Signs Date Time Temp Pulse Resp B/P Pulse Ox O2 Delivery O2 Flow Rate FiO2 11/20/16 15:31 98.0 110 21 142/74 99 11/20/16 15:01 116 22 116/66 98 Room Air 11/20/16 13:00 97.6 128 26 137/84 99 Aerosol Mask 11/20/16 11:33 22 96 Room Air 11/20/16 11:33 97 Aerosol Mask 15 11/20/16 10:58 97 21 11/20/16 10:47 97 Room Air 11/20/16 10:29 97.6 108 28 154/88 98 Room Air Physical Exam GENERAL: This is a thin built, malnourished, chronically ill appearing male. SKIN: No rashes, ecchymoses or lesions. Cool and dry. Port to right chest wall. Discoloration to both arms HEAD: Atraumatic. Normocephalic. No temporal or scalp tenderness. EYES: Pupils equal round and reactive. Extraocular motions intact. No scleral icterus. No injection or drainage. ENT: Nose without bleeding, purulent drainage or septal hematoma. Throat without erythema, tonsillar hypertrophy or exudate. Uvula midline. Airway patent. NECK: Trachea midline. No JVD or lymphadenopathy. Supple, nontender, no meningeal signs. CARDIOVASCULAR: Regular rate and rhythm without murmurs, gallops, or rubs. RESPIRATORY: Diminished, exp. wheezes. GASTROINTESTINAL: Abdomen soft, non-tender, nondistended. No hepato-splenomegaly , or palpable masses. No guarding. MUSCULOSKELETAL: Extremities without clubbing, cyanosis. Bilat ankle edema, trace, +1. No joint tenderness, effusion, or edema noted. No calf tenderness. Negative Homans sign bilaterally. NEUROLOGICAL: Awake, oriented x 3. No focal deficits. Laboratory Laboratory Tests Test 11/20/16 11:02 White Blood Count 13.6 Red Blood Count 4.37 Hemoglobin 12.0 Hematocrit 36.8 Mean Corpuscular Volume 84.4 Mean Corpuscular Hemoglobin 27.4 Mean Corpuscular Hemoglobin 32.5 Concent Red Cell Distribution Width 19.2 Platelet Count 174 Mean Platelet Volume 8.7 Neutrophils (%) (Auto) 93.7 Lymphocytes (%) (Auto) 1.4 Monocytes (%) (Auto) 2.5 Eosinophils (%) (Auto) 2.0 Basophils (%) (Auto) 0.4 Neutrophils # (Auto) 12.7 Lymphocytes # (Auto) 0.2 Monocytes # (Auto) 0.3 Eosinophils # (Auto) 0.3 Basophils # (Auto) 0.1 CBC Comment DIFF FINAL Differential Comment Sodium Level 140 Potassium Level 3.7 Chloride Level 105 Carbon Dioxide Level 29.5 Anion Gap 6 Blood Urea Nitrogen 12 Creatinine 0.55 Estimat Glomerular Filtration 149 Rate Random Glucose 105 Calcium Level 8.3 Total Bilirubin 0.4 Aspartate Amino Transf 11 (AST/SGOT) Alanine Aminotransferase 21 (ALT/SGPT) Alkaline Phosphatase 98 B-Type Natriuretic Peptide 23 Total Protein 6.5 Albumin 3.0 Result Diagram: 11/20/16 1102 11/20/16 1102 Imaging Last Impressions Chest X-Ray 11/20/16 1050 Signed Impressions: Service Date/Time: Sunday, November 20, 2016 10:57 - CONCLUSION: 1. Stable nodular density within the left upper lung field. CT of the chest may be helpful for further evaluation of this nodule and can be performed as an outpatient if clinically indicated. 2. Degenerative changes and scoliosis of the thoracolumbar spine. Andrea Juarez MD Assessment and Plan Problem List: (1) COPD exacerbation (2) Ankle edema, bilateral (3) HTN (hypertension) (4) GERD (gastroesophageal reflux disease) (5) Multiple myeloma (6) Malnourished (7) Chronic pain Assessment and Plan Admit to Dr. Vargas 66-year-old male with significant past medical history of multiple myeloma, COPD. Was recently admitted in October for COPD exacerbation requiring mechanical intubation. Presented to emergency room with increasing shortness of breath, wheezing, nonproductive cough, no fevers no chills. Admitted for COPD exacerbation. -Continue with supplemental oxygen to keep sats greater than 92 Continue with Solu-Medrol 125 mg IV every [address] Crow Patient will be started on empiric antibiotics Continue Spiriva and Symbicort Multiple myeloma, stable, under the care of Dr. Hernandez Patient currently on Revlimid and dexamethasone Bilateral ankle edema -Continue Lasix 20 mg by mouth twice a day Hypertension, stable Continue with home medications Chronic pain -continue home meds Malnourished, anorexia, currently on Megace. Endorses improvement in appetite -resume Megace SCDs for DVT prophylaxis Protonix for GI prophylaxis Plan of care discussed with the patient and his , their questions answered detail. Plan of care discussed with attending and registered nurse. Further management of the patient will be dependent on hospital course This patient was seen by myself and Dr. Dr. Vargas, this H&P is written on his behalf Problem Qualifiers (1) HTN (hypertension): Qualified Code: I10 - Essential hypertension (2) GERD (gastroesophageal reflux disease): Qualified Code: K21.9 - Gastroesophageal reflux disease, esophagitis presence not specified (3) Multiple myeloma: Qualified Code: C90.00 - Multiple myeloma, remission status unspecified (4) Chronic pain: Qualified Code: G89.4 - Chronic pain syndrome Lynette Wilcox Nov 20, 2016 15:41
[2016-11-20] MEDS ORDERED: cefTRIAXone 1,000 MG/NS 100 ML IV SCH ×2 (16:00)
[2016-11-20] MEDS: HYDROmorphone HCL 4 MG TAB PO PRN (16:28)
[2016-11-20] MEDS: FUROSEMIDE 20 MG TAB PO SCH ×2 (16:29→18:00)
[2016-11-20] MEDS: RESP: ALBUTEROL 2.5 MG/IPRATROPIUM 0.5 MG NEB (SCH) NEB ×2 (16:50→21:57)
[2016-11-20] MEDS: METHADONE HCL 10 MG TAB PO SCH (18:00)
[2016-11-20] MEDS: methylPREDNISolone SOD SUCC 125 MG/2 ML VIAL IV PUSH SCH (18:00)
[2016-11-20] MEDS: METHOCARBAMOL 500 MG TAB PO SCH (18:00)
[2016-11-20] MEDS: GABAPENTIN 300 MG CAP PO SCH (18:00)
[2016-11-20] MEDS: SODIUM CHLORIDE 0.9% FLUSH 10 ML FLUSH IV FLUSH SCH (20:43)
[2016-11-20] MEDS: DOCUSATE SODIUM 50 MG/SENNA 8.6 MG TAB PO SCH (20:44)
[2016-11-20] MEDS: predniSONE 20 MG TAB PO SCH (20:44)
[2016-11-20] MEDS: PANTOPRAZOLE SOD 20 MG DELAYED RELEASE TAB PO SCH (20:44)
[2016-11-20] MEDS: BUDESONIDE-FORMOTEROL 160/4.5 MCG INHALER INH SCH (21:05)
--- NOTE | 2016-11-20 22:07 | MB ---
cc: Fernie SUAREZ M.D. DATE OF CONSULTATION 11/20/2016 HISTORY OF THE PRESENT ILLNESS Mr. Capellan is a 66-year-old white male known to me with very severe COPD. He also has a longstanding history of multiple myeloma. He was admitted here in late October with acute respiratory failure, was ventilated for about 24-48 hours, extubated and discharged home debilitated but stable. I saw him in the office after that hospitalization and on a prednisone taper and his usual bronchodilator regimen he was quite stable. He is quite disabled however and has dyspnea on minimal exertion. He told me that yesterday he was fine, [place], is fairly sedentary but was having no specific problems such as cough, congestion, purulent sputum, chest pain, fever or hemoptysis. He slept well through the night but when he woke up this morning he was more short of breath and his felt that he should come to the emergency room. Particularly in light of the sudden onset of acute respiratory failure just last month that was of good decision. On presentation he was noticeably dyspneic but vital signs were stable. Heart rate was rapid but regular. And O2 saturations on an aerosol mask had been 95-100%. LABORATORY DATA Initial laboratory white count 13,000, hemoglobin is 12, BUN and creatinine are normal. Electrolytes are fine. BNP is low at 23. IMAGING He had a CT angiogram which revealed no thromboembolic disease. No pneumonia. No fluid just emphysema. PAST MEDICAL AND SURGICAL HISTORY For a thorough review of his prior history, you can refer to multiple consultations including the pulmonary consultation from last month but basically he has multiple myeloma and severe COPD, chronic anemia due to chronic disease. No significant prior cardiovascular history. ALLERGIES Are listed. MEDICATIONS Reviewed in the EMR. PHYSICAL EXAMINATION GENERAL: Frail white male, no distress at rest, comfortable on O2 mask. VITAL SIGNS: Afebrile. Blood pressure 130/80, pulse 105, respirations 18-22, and O2 sat 99%. NECK: The neck veins are flat. HEENT: Mucous membranes are a little dry. CHEST: Some minimal scattered congestion but no audible wheezes, no basilar rales. CARDIOVASCULAR: Heart rate is regular, although rapid. No harsh murmur. No audible S3. EXTREMITIES: 1+ ankle edema and pretibial edema as well. No calf tenderness. DISCUSSION Mr. Capellan presents with severe COPD. This appears to be an exacerbation, precise etiology is not clear. He does not have pneumonia. He has had no purulent sputum. No chest pain. He has developed some edema. I do not see an echocardiogram on the previous visit so we will do an echo to see if he has developed right heart failure or has any LV dysfunction. Continue him on prednisone, aerosolized bronchodilators and oxygen. Thank you for asking me to see him with you in consultation. R. Mike Suarez MD RSStefano/KK /5:13 PM /10:01 PM
--- NOTE | 2016-11-20 22:41 | RADRPT ---
EXAM DATE/TIME: 11/20/2016 17:02 [facility] COMPARISON: No previous studies available for comparison. INDICATIONS : Bilateral leg swelling. MEDICAL HISTORY : Chronic obstructive pulmonary disease. Congestive heart failure. Gastroesophageal reflux disease. Hyp ertension. Anticoagulant therapy, Aspirin. Asthma. Pneumonia. Arthritis. Herniated disk. Anxiety. Ane deandre. Multiple myeloma. Chemotherapy. Radiation therapy. Shingles. SURGICAL HISTORY : Kyphoplasty. Right chest port. ENCOUNTER: Initial ACUITY: 2 day PAIN SCORE: 0/10 LOCATION: Bilateral legs. TECHNIQUE: Venous ultrasound of the left and right leg was performed from the inguinal ligament to the proximal calf. Real-time, color Doppler and spectral tracing, compression and augmentation techniques were us ed. FINDINGS: RIGHT LEG: There is normal compressibility of the deep venous system from the inguinal region to the proximal ca lf. No echogenic clot is seen in the lumen of the common femoral, femoral, popliteal, and posterior tibial veins. There is a normal response of the venous system to proximal and distal augmentation an d respiration. LEFT LEG: There is normal compressibility of the deep venous system from the inguinal region to the proximal ca lf. No echogenic clot is seen in the lumen of the common femoral, femoral, popliteal, and posterior tibial veins. There is a normal response of the venous system to proximal and distal augmentation an d respiration. CONCLUSION: No DVT of either lower extremity. Stevan Perdomo MD on November 20, 2016 at 22:39 Board Certified Radiologist. This report was verified electronically.
[2016-11-21] VITALS (7 sets, daily range): BP systolic 124–150; BP diastolic 62–70; PULSE 87–112; RESP 18–20; TEMP 97.6–99.1; O2SAT 95–100
[2016-11-21] MEDS: HEPARIN SODIUM - SQ 10,000 UNITS/ML VIAL SQ SCH (03:00)
[2016-11-21 05:20] LABS: AUTOMATED NEUTROPHIL # 9.3 TH/MM3 (1.8-7.7); BASOPHIL % 0.1 % (0.0-2.0); HEMATOCRIT 34.8 % (39.0-51.0); HEMO FLAGS DIFF FINAL; LYMPH % 1.6 % (9.0-44.0); LYMPHOCYTE # 0.1 TH/MM3 (1.0-4.8); MEAN CELL VOLUME 83.3 FL (80.0-100.0); MEAN CORPUSCULAR HEMOGLOBIN 27.6 PG (27.0-34.0); MEAN CORPUSCULAR HGB CONC 33.1 % (32.0-36.0); MONO % 1.3 % (0.0-8.0); PLATELET COUNT 166 TH/MM3 (150-450); RED BLOOD COUNT 4.18 MIL/MM3 (4.50-5.90); RED CELL DISTRIBUTION WIDTH 19.8 % (11.6-17.2); WHITE BLOOD COUNT 9.6 TH/MM3 (4.0-11.0)
[2016-11-21 05:41] LABS: BICARBONATE 31.2 MEQ/L (21.0-32.0); POTASSIUM 3.3 MEQ/L (3.5-5.1)
[2016-11-21] MEDS: methylPREDNISolone SOD SUCC 125 MG/2 ML VIAL IV PUSH SCH ×2 (06:00)
[2016-11-21] MEDS: RESP: ALBUTEROL 2.5 MG/IPRATROPIUM 0.5 MG NEB (SCH) NEB ×3 (07:52→15:55)
[2016-11-21] MEDS ORDERED: TIOTROPIUM BROMIDE 18 MCG INH INH SCH (09:00)
[2016-11-21] MEDS ORDERED: POTASSIUM CHLORIDE 20 MEQ CONTROLLED RELEASE TAB PO SCH ×2 (09:00→21:00)
[2016-11-21] MEDS ORDERED: amLODIPine BESYLATE 5 MG TAB PO SCH (09:00)
[2016-11-21] MEDS ORDERED: ASPIRIN 81 MG CHEW TAB CHEW SCH (09:00)
[2016-11-21] MEDS ORDERED: MEGESTROL ACETATE SUSP 400 MG/10 ML CUP PO SCH (09:00)
--- NOTE | 2016-11-21 09:09 | HHI.PR ---
Subjective Remarks No chest pain SOB improved at rest. alert anxious trace pedal edema (Celine Davenport) Objective Objective Results - Vital Signs Date Time Temp Pulse Resp B/P Pulse Ox O2 Delivery O2 Flow Rate FiO2 11/21/16 07:52 95 21 11/21/16 07:09 98.7 90 18 150/70 96 11/21/16 06:22 97.8 87 18 129/65 95 11/21/16 00:23 97.6 103 18 138/64 96 11/20/16 21:59 95 Nasal Cannula 2.00 11/20/16 20:29 99.0 62 18 137/65 96 11/20/16 19:34 20 11/20/16 17:28 22 11/20/16 15:31 98.0 110 21 142/74 99 11/20/16 15:01 116 22 116/66 98 Room Air 11/20/16 13:00 97.6 128 26 137/84 99 Aerosol Mask 11/20/16 11:33 22 96 Room Air 11/20/16 11:33 97 Aerosol Mask 15 11/20/16 10:58 97 21 11/20/16 10:47 97 Room Air 11/20/16 10:29 97.6 108 28 154/88 98 Room Air (Celine Davenport) Result Diagram: 11/21/1640611/21/16 0407 ROS General: Fatigue, Weakness (milkd), Other (10 point ROS done, mild anxiety, SOB , cough, improving, other systems unremarkable) Pulmonary: Cough (mild), SOB (improved) (Celine Davenport) Physical Exam Physical Exam PHYSICAL EXAMINATION GENERAL: This is a slim well-nourished male who appears to be in no acute distress at rest. He is alert and awake, recieving duo nebs HEAD: Normocephalic without any lesion or mass noted. Facial features appear symmetric. OROPHARYNGEAL: Oropharynx without erythema or edema. NECK: Supple. No nuchal rigidity or lymphadenopathy. Trachea midline without deviation. CARDIAC: Regular rhythm, regular rate, S1 and S2 are heard. Murmur none no gallops or rubs. LUNGS: Diminished to auscultation bilaterally. no wheeze, no rhonchi ABDOMEN: Soft, nontender, no organomegaly or masses. Bowel sounds are heard in all four quadrants. No rebound. No guarding. EXTREMITIES: trace edema. Pulses equal bilateral. NEUROLOGICAL: Patient mood and affect appropriate with mild anxiety. SKIN:Warm and moist Objective Remarks Im ok except for no privacy in this rm. (IssacCelinelyndon BRUCE) A/P Assessment and Plan (1) COPD exacerbation (2) Ankle edema, bilateral (3) HTN (hypertension) (4) GERD (gastroesophageal reflux disease) (5) Multiple myeloma (6) Malnourished (7) Chronic pain 8. Hypokalemia oxygen to keep sats greater than 92 Solu-Medrol 125 mg IV every [address] Crow, appreciate input antibiotics initiated, no pna seen per pulm. appears to be an exacerbation of his COPD. Bilateral ankle edema -Continue Lasix 20 mg by mouth twice a day vitals reviewed, stable ranges, afebrile megace for appetite, hx mul. myeloma Mild Hypokalemia, treated with PO K+, will recheck BMP in am Anemia, probable to chreonic disease Hyperglycemia, secondary to steroids probable SCDs for DVT prophylaxis Protonix for GI prophylaxis Feels better this am. Discharge planning possible tomorrow. D/W nurse D/W Dr. Vargas, seen on his behalf Discussed With: Family (patient) (Celine Davenport) Assessment and Plan seen, examined by myself, Dr Vargas, today Discussed with patient, he feels much better, he wants to go home, Normal resting dyspnea, lower extremity edema has improved Possible home later today on diuretics and long-term steroids He is still waiting for his echocardiogram Discussed with mid level provider The exam, history, and the medical decision-making described in the above note were completed with the assistance of the mid-level provider. I reviewed the findings presented. I attest that I had a [id number] encounter with the patient on the same day, and personally performed and documented my assessment and findings in the medical record. 45 minutes This is a 66-year-old gentleman who has severe COPD also has multiple myeloma. He was admitted on 11/20/16 with COPD exacerbation. He did improve overnight after IV steroids. 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 Bong crow. He is now being discharged home on prednisone 20 mg daily. Arrangements are in progress to see if he could benefit from Supplemental home oxygen. He is to see Dr. Crow's next week in the office. He also has lower extremity edema which benefited from Lasix 20 mg daily which is to continue. He had an echocardiogram done. Results will be addressed by Dr. crow next week when he sees him in the office. He was discharged home in a stable condition (Lorenza Vargas MD) Celine Davenport Nov 21, 2016 09:09 Lorenza Vargas MD Nov 21, 2016 10:21
[2016-11-21] MEDS: PANTOPRAZOLE SOD 20 MG DELAYED RELEASE TAB PO SCH (09:34)
[2016-11-21] MEDS: DOCUSATE SODIUM 50 MG/SENNA 8.6 MG TAB PO SCH (09:34)
[2016-11-21] MEDS: FUROSEMIDE 20 MG TAB PO SCH (09:34)
[2016-11-21] MEDS: BUDESONIDE-FORMOTEROL 160/4.5 MCG INHALER INH SCH (09:34)
[2016-11-21] MEDS: METHOCARBAMOL 500 MG TAB PO SCH ×2 (09:35→13:36)
[2016-11-21] MEDS: GABAPENTIN 300 MG CAP PO SCH ×2 (09:35→13:36)
[2016-11-21] MEDS: METHADONE HCL 10 MG TAB PO SCH ×2 (09:36→13:36)
[2016-11-21] MEDS: predniSONE 20 MG TAB PO SCH (09:36)
[2016-11-21] MEDS: SODIUM CHLORIDE 0.9% FLUSH 10 ML FLUSH IV FLUSH SCH (09:36)
[2016-11-21] MEDS ORDERED: PRED20 PO (15:14)
[2016-11-21] MEDS ORDERED: FURO20TA PO (15:14)
--- NOTE | 2016-11-21 15:18 | HHI.DS ---
Discharge Summary Admission Date Nov 20, 2016 at 13:48 Admitting Diagnosis copd exacerbation CBC/BMP: 11/21/16 0407 11/21/16 0407 Significant Findings Laboratory Tests Test 11/20/16 11/21/16 11:02 04:07 White Blood Count 13.6 TH/MM3 (4.0-11.0) Red Blood Count 4.37 MIL/MM3 4.18 MIL/MM3 (4.50-5.90) (4.50-5.90) Hemoglobin 12.0 GM/DL 11.5 GM/DL (13.0-17.0) (13.0-17.0) Hematocrit 36.8 % 34.8 % (39.0-51.0) (39.0-51.0) Red Cell Distribution Width 19.2 % 19.8 % (11.6-17.2) (11.6-17.2) Neutrophils (%) (Auto) 93.7 % 97.0 % (16.0-70.0) (16.0-70.0) Lymphocytes (%) (Auto) 1.4 % 1.6 % (9.0-44.0) (9.0-44.0) Neutrophils # (Auto) 12.7 TH/MM3 9.3 TH/MM3 (1.8-7.7) (1.8-7.7) Lymphocytes # (Auto) 0.2 TH/MM3 0.1 TH/MM3 (1.0-4.8) (1.0-4.8) Creatinine 0.55 MG/DL (0.60-1.30) Calcium Level 8.3 MG/DL 8.4 MG/DL (8.5-10.1) (8.5-10.1) Aspartate Amino Transf 11 U/L (15-37) (AST/SGOT) Albumin 3.0 GM/DL (3.4-5.0) Potassium Level 3.3 MEQ/L (3.5-5.1) Random Glucose 127 MG/DL (74-106) Hospital Course This is a 66-year-old gentleman who has severe COPD also has multiple myeloma. He was admitted on 11/20/16 with COPD exacerbation. He did improve overnight after IV steroids. He was seen by his sign painter apprentice Dr. Bong crow. He is now being discharged home on prednisone 20 mg daily. Arrangements are in progress to see if he could benefit from Supplemental home oxygen. He is to see Dr. Crow's next week in the office. He also has lower extremity edema which benefited from Lasix 20 mg daily which is to continue. He had an echocardiogram done. Results will be addressed by Dr. crow next week when he sees him in the office. He was discharged home in a stable condition. His potassium was replaced Discharge Disposition: Discharge Home Discharge Instructions DIET: Follow Instructions for: Low Sodium Diet Activities you can perform: Weight Bearing as Lorenza Miller MD Nov 21, 2016 15:18
[2016-11-21] MEDS ORDERED: POTA20TA5 PO (15:19)
--- NOTE | 2016-11-21 15:27 | EC ---
Study Study Date:11/21/2016 If LV function is below 40, please consider prescribing an ACEI or ARB or document rationale for non-use. PROCEDURE DATA Very Limited images were obtained from the parasternal position. The patient was unable to comply with postions. There was not suitable images for EF determination. Study completion: The patient tolerated the procedure well. Transthoracic echocardiography. M-mode, limited 2D, limited spectral Doppler, and color Doppler. Height: Height: 62in. Weight: Weight: 109.8lb. Body mass index: BMI: 20.1kg/m^2. Body surface area: BSA: 1.48m^2. CARDIAC ANATOMY AORTIC VALVE: Not visualized. MITRAL VALVE: Doppler: There was no evidence for stenosis. No regurgitation. LEFT ATRIUM: The atrium was normal in size. RIGHT VENTRICLE: The cavity size was normal. Wall thickness was normal. PULMONIC VALVE: Doppler: Transvalvular velocity was within the normal range. There was no evidence for stenosis. No regurgitation. TRICUSPID VALVE: Not well visualized. Doppler: Transvalvular velocity was within the normal range. No regurgitation. PULMONARY ARTERY: The main pulmonary artery was normal-sized. Systolic pressure was within the normal range. RIGHT ATRIUM: The atrium was normal in size. Patient weight: 109.8lb _Ejection fraction:_ 65-75% _Fractional shortening:_ 32% up to 5Kg 5-11.5Kg 11.6-22.9Kg 23-45Kg 45-57Kg Aortic Root 7-13 <17 13-22 17-27 17-27 LA diam 6-13 <23 24-38 33-47 37-40 RVID 10-17 7-15 7-15 7-18 8-17 LVIDd 12-22 <32 24-38 33-47 37-40 LVPW 2-4 3-6 5-7 6-8 7-8 IVS 2-4 3-6 5-7 6-8 7-8 BASIC MEASUREMENTS ADULT Normal Left ventricle LV internal dimension, ED, chordal level, *37.7 mm 43-52 PLAX LV posterior wall thickness, ED 6.29 mm IVS/LVPW ratio, ED *1.32 <1.3 Ventricular septum Septal thickness, ED 8.28 mm Left atrium Anterior-posterior dimension 24 mm Anterior-posterior dimension index 1.62 cm/m^2 <2.2 Right ventricle RV internal dimension, ED, PLAX 21.8 mm 19-38 DOPPLER MEASUREMENTS ADULT Normal Mitral valve Peak E-wave velocity 36 cm/s Peak A-wave velocity 49.4 cm/s Peak E/A ratio 0.7 Tricuspid valve Regurgitant peak velocity 139 cm/s Peak RV-RA gradient, S 8 mm Hg LEGEND: Mean values are shown as u=mean value. Asterisk (*) champagne values outside specified normal range. Prepared and signed by Yen Peralta [id number]
[2016-11-21] MEDS: HYDROmorphone HCL 4 MG TAB PO PRN (16:03)
[2016-11-22] MEDS ORDERED: FUROSEMIDE 20 MG TAB PO SCH (09:00)
--- NOTE | 2016-11-28 12:46 | MD ---
cc: Frenie SUAREZ ADMISSION DATE: 11/20/2016 DISCHARGE DATE: 11/21/2016 BRIEF PULMONARY DISCHARGE BRIEF HISTORY Mr. Capellan is a 66-year-old white male who presented to the emergency room yesterday with increasing shortness of breath and today is feeling much better. He had a CTA on admission which revealed no evidence of thromboembolic disease and no infiltrates. He does have underlying emphysema. He had some swelling in his legs so he had ultrasounds which revealed no evidence of DVT. He had an echocardiogram this morning but that result is pending. White count today is 9600 and serum chemistries are fine other than a mild reduction in potassium. Mr. Capellan has underlying COPD of moderate severity. He had been tapered off prednisone prior to this presentation which may have contributed to the increase in shortness of breath. I will check the echo after discharge to be sure that there is no evidence of heart failure or [id number] ventricular dysfunction. PHYSICAL EXAMINATION GENERAL: He is feeling much better this morning. VITAL SIGNS: He is afebrile. Blood pressure is 120/60, pulse is 90, respirations are 18 and his O2 sats on room air are 95%. LUNGS: Diminished but clear. EXTREMITIES: The edema has resolved. DISPOSITION Mr. Capellan is being prepared for discharge. I wrote a prescription for 20 mg of prednisone for him to continue until I see him in the office next week. He will also continue his bronchodilators at home. I have reviewed these discharge plans with he and his and they are to call if problems arise prior to followup next week. MD GENESIS Wheat/DANE /2:20 PM /12:42 PM
== END 2016-11-21 17:15 | disposition home or self-care (01) ==
LOC: NEPE 10:25 → NEDA 13:48 → NEPFCDU 15:24
PROVIDERS: ADMIT Specialist; ATTEND Specialist
DX: J44.1 Chronic obstructive pulmonary disease with (acute) exacerbation (principal); K21.9 Gastro-esophageal reflux disease without esophagitis; G89.29 Other chronic pain; F41.9 Anxiety disorder, unspecified; R60.0 Localized edema; C90.00 Multiple myeloma not having achieved remission; E46 Unspecified protein-calorie malnutrition; M19.90 Unspecified osteoarthritis, unspecified site; E87.6 Hypokalemia; R73.9 Hyperglycemia, unspecified; I10 Essential (primary) hypertension; Z79.82 Long term (current) use of aspirin; Z87.891 Personal history of nicotine dependence; Z79.51 Long term (current) use of inhaled steroids; Z92.21 Personal history of antineoplastic chemotherapy; Z92.3 Personal history of irradiation; Z87.01 Personal history of pneumonia (recurrent); Z88.1 Allergy status to other antibiotic agents; Z88.8 Allergy status to other drugs, medicaments and biological substances
CPT/HCPCS: 71010; 71275; 80048; 80053; 83880; 85025; 93005; 93306; 93970; 94620; 94640; 94664; 96374; 99285; G0378; J0696; J1642; J1644; J2930; J7512; Q9967